=== PATIENT | female | born 1965 | race Caucasian/White ===

== ENCOUNTER 2018-09-07 06:24 | Emergency (ER) | payer MEDICARE, SELFPAY ==
[2018-09-07 06:27] VITALS: BP 134/78; PULSE 76; RESP 16; TEMP 36.4; O2SAT 98
--- NOTE | 2018-09-07 06:39 | DI.RAD_ITS ---
SYMPTOM/DIAGNOSIS: RT KNEE PAIN, SWELLING, ? ARTHRITIS OR GALLAGHER'S CYST RIGHT KNEE: No fracture or joint effusion is seen. There is prominent spurring at the patellofemoral joint as well as femoral tibial joints. There is joint space narrowing of the medial femoral tibial joint. IMPRESSION: Degenerative changes. No acute abnormality.
--- NOTE | 2018-09-07 06:39 | W.ED.GENAD ---
Discharge Plan Disposition Patient Disposition: HOME Condition: Stable Discharge Details Chief Complaint: Orthopedic Clinical Impression: Arthritis of knee, right, Knee pain Primary Care Provider: Marquita Cochran ED Provider: Vielka Cotton Home Meds and New Rx's Prescriptions: Continued bupropion HCl 100 MG tablet extended release 12 hr 150 mg PO HS RF: 0 lamotrigine [Lamictal] 100 MG tablet 150 mg PO BID RF: 0 TENS units [TENS 502] 1 EACH device 1 ea Miscellaneous as directed RF: 0 bupropion HCl (smoking deter) 150 MG tablet extended release 12 hr 300 mg PO am RF: 0 KNEE BRACE RF: 0 alprazolam [Xanax] 1 MG tablet 1 mg PO HS RF: 0 topiramate [Topamax] 50 MG tablet 50 mg PO BID RF: 0 B12 5,000-100 mcg Lozenge 2,500 alex Sublingual DAILY RF: 0 Discharge Instructions Instructions: Knee Pain (ED), Arthritis (ED) Additional Instructions: Alternate tylenol and motrin as needed and directed for pain. Rest, ice, and elevate your right knee as much as possible. Call your primary doctor today to schedule a follow up appointment for re-evaluation. Return immediately to the emergency department if you develop any worsening or new concerning symptoms of fever, increased pain, chest pain or shortness of breath. Discharge Data Discharge Date/Time-TO BE ENTERED AT DEPARTURE: 09/07/18 08:21 Discharge Physician: Vielka Cotton Medical Decision Making 53-year-old female who presents with right knee pain since yesterday. Pain worse with weightbearing and extension. Differential diagnosis includes strain, arthritis, Torres's cyst, effusion. No erythema, fever so not consistent with septic joint or gout. No history of recent travel, recent surgery and no calf tenderness or not consistent with DVT. No cauda equina symptoms and no radiating pain from lower back so not c/w disc herniation. Will obtain R knee xray and give a dose of motrin. 0800 -- xray notes arthritis. Patient instructed to rest, ice, elevate, alternate Tylenol and Motrin. She is instructed to follow-up with the primary care doctor for reevaluation and for referral for MRI if her symptoms do not improve or worsen. She is instructed to return here if she has any worsening or new concerning symptoms of fever, increased pain, chest pain or shortness of breath. Imaging Data Radiologic Study: Radiologist's impression: XR Left Knee EXAM DATE/TIME: 09/07/2018 6:39 AM CLINICAL HISTORY: 53 years old, female; Pain; Knee; Right TECHNIQUE: Imaging protocol: XR Left knee. Views: 4 or more views. COMPARISON: No relevant prior studies available. FINDINGS: Bones/joints: No fracture or dislocation demonstrated. Primary osteoarthritis, most pronounced medially, with joint space narrowing, sclerosis and osteophyte formation throughout. No joint effusion or loose intra-articular body. No lytic or blastic lesions. Soft tissues: Unremarkable. No foreign body. IMPRESSION: 1. No fracture or dislocation demonstrated. 2. Primary osteoarthritis, most pronounced medially, with joint space narrowing, sclerosis and osteophyte formation throughout. HPI General Mode of arrival: ambulatory. Date/Time Provider Initiated Documentation: 09/07/18 06:26. Limitations to Documentation: no limitations. Information obtained by: patient. HPI Narrative: Patient is a 53-year-old female who presents with right knee pain since yesterday. Patient states the knee is mainly in the anterior and lateral aspect. Increased pain with weightbearing and with extension. She denies any known injury. She states her pain is worse with ambulation/weightbearing which then extends down to her lower leg and up to her hip. She denies any known fever, injury, numbness, weakness. She has not taken anything for pain today. Related Data Home Medications Medication Instructions Recorded Confirmed Knee Brace 04/26/14 02/26/15 TENS units [TENS 502] ea 04/26/14 01/12/17 bupropion HCl 150 mg PO HS tab-cap 04/26/14 09/07/18 bupropion HCl (smoking deter) 300 mg PO am tab-cap 04/26/14 09/07/18 lamotrigine [Lamictal] 150 mg PO BID tab-cap 04/26/14 09/07/18 alprazolam [Xanax] 1 mg PO HS tab-cap 05/30/14 09/07/18 topiramate [Topamax] 50 mg PO BID 01/12/17 09/07/18 B12 2,500 alex SUBLINGUAL DAILY 09/07/18 09/07/18 Allergies Allergy/AdvReac Type Severity Reaction Status Date / Time diazepam AdvReac Severe VOMITING Unverified 09/07/18 06:32 prochlorperazine AdvReac Severe PANICK Unverified 09/07/18 06:32 [Prochlorperazine] ATTACKS zolpidem [Zolpidem] AdvReac Intermediate SLEEP Unverified 09/07/18 06:32 WALKING AND TALKING clonazepam [From Klonopin] AdvReac Mild NOT Unverified 09/07/18 06:32 EFFECTIVE Penicillins AdvReac Skin Rash Unverified 09/07/18 06:32 General Stated Complaint: Orthopedic NEELA: 4 Review of Systems Review of Systems All systems reviewed & are unremarkable except as noted in HPI and below Constitutional Reports as per HPI, Denies chills and Denies fever(s) Eyes Denies blurry vision ENT Denies dizziness, Denies sore throat and Denies throat swelling Cardiovascular Denies chest pain and Denies dyspnea Respiratory Denies cough and Denies dyspnea Gastrointestinal Denies abdominal pain, Denies diarrhea and Denies vomiting Genitourinary Denies hematuria and Denies dysuria Musculoskeletal Denies back pain, Denies numbness and Reports other (R knee pain) Integumentary/Breasts Denies lesions and Denies rash Neurologic Denies dizziness, Denies focal weakness and Denies numbness Allergic/Immunologic Denies throat swelling [facility] Medical History Depression Pernicious anemia Primary fibromyalgia syndrome chronic headaches post trauma stress disorder Surgical History section Cholecystectomy Endoscopic Carpal Tunnel release Gastric Bypass Family History Mother No problems noted. Father Alzheimer's disease Social History Smoking/Tobacco Use Status: Never Drug use: Never Do you feel safe at home: Yes Do you feel safe in your relationship?: Yes Exam Const General: cooperative, healthy appearing and no acute distress HENMT Head: normal to inspection Mouth: oral mucosae normal Eyes General: appearance normal, both eyes and all related structures Neck Neck: normal visual inspection Resp Effort & Inspection: normal respiratory effort and able to speak in complete sentences Cardio Rate: regular rate Skin General skin exam: no rashes or lesions noted Neuro General: alert, awake and oriented x3 Motor: muscle tone normal throughout Extrem General: no calf tenderness bilaterally Other: R anterior knee edema and pain with ROM, mostly extension. Negative anterior posterior drawer test. No pain or laxity with valgus or varus stress. No erythema, ecchymosis, rash. No obvious bony deformity. No palpable cystic lesion in the posterior knee. Psych Appearance: grossly normal Affect: normal affect Course Vital Signs Temperature 97.5 F L 09/07/18 06:27 Pulse 76 09/07/18 06:27 Respiratory Rate 16 09/07/18 06:27 Blood Pressure 134/78 09/07/18 06:27 Pulse Oximetry 98 09/07/18 06:27 Temperature 97.5 F L 09/07/18 06:27 Temperature Source Temporal Artery Scan 09/07/18 06:27 Pulse 76 09/07/18 06:27 Respiratory Rate 16 09/07/18 06:27 Respiratory Effort 09/07/18 06:27 Blood Pressure 134/78 09/07/18 06:27 Pulse Oximetry 98 09/07/18 06:27 Oxygen Delivery Method Room Air 09/07/18 06:27 Oxygen Flow Rate 0 09/07/18 06:27 Pain Level 10 09/07/18 06:31
[2018-09-07] MEDS: Ibuprofen 600 MG TAB PO (06:46)
--- NOTE | 2018-09-07 07:19 | DI.VRAD_ITS ---
EXAM: XR Left Knee EXAM DATE/TIME: 09/07/2018 6:39 AM CLINICAL HISTORY: 53 years old, female; Pain; Knee; Right TECHNIQUE: Imaging protocol: XR Left knee. Views: 4 or more views. COMPARISON: No relevant prior studies available. FINDINGS: Bones/joints: No fracture or dislocation demonstrated. Primary osteoarthritis, most pronounced medially, with joint space narrowing, sclerosis and osteophyte formation throughout. No joint effusion or loose intra-articular body. No lytic or blastic lesions. Soft tissues: Unremarkable. No foreign body. IMPRESSION: 1. No fracture or dislocation demonstrated. 2. Primary osteoarthritis, most pronounced medially, with joint space narrowing, sclerosis and osteophyte formation throughout. Dictated and Authenticated by: Bill Fritz MD. Ordering:JOSEFA Vora MD
[2018-09-07 07:32] VITALS: BP 116/75; PULSE 66; RESP 14; TEMP 36.4; O2SAT 98
== END 2018-09-07 08:21 | disposition home or self-care (01) ==
PROVIDERS: Emergency Provider Physician Assistant; PCP Nurse Practitioner Family
DX: M25.561 Pain in right knee (principal); M17.11 Unilateral primary osteoarthritis, right knee
CPT/HCPCS: 99283; 73564

== ENCOUNTER 2018-09-29 16:30 | Outpatient (REF) | payer MEDICARE, SELFPAY ==
--- NOTE | 2018-09-29 16:15 | PAPFT_PTH ---
PATIENT: Emily Tobin LOC: [facility] U#:[id number] AGE/SX: 53/F ROOM: RE09/29/[address]: Marquita Cochran : 1965 BED: DIS: 09/29/2018 SPEC #: [id number] RECD: 09/30/18 12:52 STATUS: DIANA RESanjay #: [id number] PORTIA: 09/29/18 16:[address]: Marquita Cochran DEPT: [facility] Cytology RECD BY: Jennifer Gutierrez Tissues: 1 - CX/ENDOCX FOR PAP SMEARS Procedures: PAP THIN PREP/UVM Screening HPV DNA PROBE Comments: [id number]
== END 2018-09-29 16:50 ==
LOC: NCHCN 16:30
PROVIDERS: PCP Nurse Practitioner Family; Visit Provider Nurse Practitioner Family
DX: Z12.4 Encounter for screening for malignant neoplasm of cervix (principal); Z11.51 Encounter for screening for human papillomavirus (HPV)
CPT/HCPCS: 88142; 87624

== ENCOUNTER 2018-09-30 12:38 | Outpatient (CLI) | payer MEDICARE, SELFPAY ==
[2018-10-01 10:48] LABS: Measles IgG Antibody Positive; Mumps Antibody IgG Negative (Negative); Rubella IgG Ab (UVM) Negative; Varicella IgG Antibody Positive
== END 2018-09-30 12:58 ==
PROVIDERS: PCP Nurse Practitioner Family; Visit Provider Nurse Practitioner Family
DX: Z11.59 Encounter for screening for other viral diseases (principal); Z01.84 Encounter for antibody response examination; R69 Illness, unspecified
CPT/HCPCS: 36415; 86787; 86735; 86762; 86765

== ENCOUNTER 2018-10-13 00:53 | Outpatient (CLI) | payer MEDICARE, SELFPAY ==
--- NOTE | 2018-10-13 13:05 | DI.MAMMO_ITS ---
SYMPTOMS/DIAGNOSIS: SCREENING, [facility], Z00.00 BILATERAL SCREENING MAMMOGRAMS: Mammograms were interpreted according to the usual protocol including computer analysis with CAD system, tomosynthesis and C view imaging. Comparison is made with exams from 2010 and 2018. The breasts are composed of heterogeneously dense fibroglandular tissue, breast density category C. Previously noted cysts in the left breast are much smaller on today's exam. No suspicious masses or suspicious microcalcifications are seen. . IMPRESSION: Category 2, negative mammogram with benign findings. Yearly screening mammography is recommended. SA ASSESSMENT OF FINDINGS: Negative with benign findings. Category 2. Patient will receive a letter notifying them of these results. Bi-RADS category C. The breasts are heterogeneously dense, which may obscure small masses.
== END 2018-10-13 01:13 ==
PROVIDERS: PCP Nurse Practitioner Family; Visit Provider Nurse Practitioner Family
DX: Z12.31 Encounter for screening mammogram for malignant neoplasm of breast (principal); N60.12 Diffuse cystic mastopathy of left breast
CPT/HCPCS: 77063; 77067

== ENCOUNTER 2018-11-22 20:51 | Emergency (ER) | payer MEDICARE, SELFPAY ==
--- NOTE | 2018-11-22 20:56 | ED.GENADUL_ITS ---
Discharge Plan Disposition Patient Disposition: HOME Condition: Good Discharge Details Chief Complaint: RespSymp Clinical Impression: Bronchitis Primary Care Provider: Marquita Cochran ED Provider: Sam Gomez Home Meds and New Rx's Prescriptions: No Action bupropion HCl 100 MG tablet extended release 12 hr 150 mg PO HS RF: 0 lamotrigine [Lamictal] 100 MG tablet 150 mg PO BID RF: 0 (DME) TENS units [TENS 502] 1 EACH device 1 ea Miscellaneous as directed RF: 0 bupropion HCl (smoking deter) 150 MG tablet extended release 12 hr 300 mg PO am RF: 0 KNEE BRACE RF: 0 alprazolam [Xanax] 1 MG tablet 1 mg PO HS RF: 0 topiramate [Topamax] 50 MG tablet 50 mg PO BID RF: 0 B12 5,000-100 mcg Lozenge 2,500 alex Sublingual DAILY RF: 0 Discharge Instructions Instructions: Acute Bronchitis (ED) Additional Instructions: At this time your EKG shows no evidence of a heart attack. Your chest x-ray is negative for any evidence of pneumonia at this time. Your signs and symptoms are notably concerning and consistent with bronchitis. Please take the inhaler as directed. Please take 2 puffs every 4 hours as needed. Please continue to take your prednisone. If you notice any worsening of your symptoms, or any new symptoms such as vomiting, diarrhea, fever, chills, shortness of breath, chest pain, numbness, weakness, or fainting , please return immediately to the emergency department for reevaluation. Please follow up with your primary care provider as soon as possible for reassessment and reevaluation. As always, it was a pleasure participating in your medical care today. Referrals: Marquita Cochran [Primary Care Provider] - Discharge Data Discharge Date/Time-TO BE ENTERED AT DEPARTURE: 11/22/18 23:00 Medical Decision Making This is a very pleasant 53-year-old female who presents with 5 days of cough, congestion, and symptoms of a mild upper respiratory infection. She was started on prednisone 3 days ago by her PCP. Unfortunately this is not improved her symptoms. She does have mild fullness/congestion feeling in her chest but denies any tearing sensation, crushing chest pain, exertional pain, arm neck or shoulder pain. She has no family history of cardiac disease. She has no cardiac risk factors aside for her mild obesity. Physical exam is notably unremarkable, vital signs stable and reassuring. Signs and symptoms appear clinically consistent with mild bronchitis. We will get chest x-ray for further evaluation. Due to her age of 53 and atypical symptomatology we will get a screening EKG. Of note she also does have a small amount of blood in her left canal, this is iatrogenic and secondary to her picking with a Q-tip. There is no evidence of otitis media, rupture, or otitis externa. 10:42 PM Chest x-ray is negative for any significant pneumonia or other abnormality. Vital signs remained stable, EKG is unremarkable. Signs and symptoms at this time continue to be her clinic clinically consistent with mild bronchitis. Symptoms notably improved with albuterol breathing treatment. Signs and symptoms at this time are clinically inconsistent with ACS, PE, dissection, or severe pneumonia. Will recommend continued steroids, albuterol at home which will be dispensed here, close follow-up with PCP. I have extensively reviewed the treatment plan and discharge instructions with the patient. I have addressed all patient concerns at this time. The patient was made aware of what symptoms to monitor for that would warrant a return to the emergency department. Discussed the plan with the patient, they demonstrate verbal understanding and agreement with our assessment and plan at this time. EKG 21: 19 Rate 67, intervals normal, sinus rhythm, no significant ST elevations or depressions, no T wave inversions, no evidence of STEMI. No significant Q waves. FINDINGS: Lungs: Stable mild hyperinflation without airspace consolidation. Pleural space: No pleural effusion. No pneumothorax. Heart/Mediastinum: No cardiomegaly. Upper abdomen: Right upper quadrant clips, probable cholecystectomy. Surgical clips project over the midline upper abdomen. Bones/joints: No acute fracture. IMPRESSION: Stable mild hyperinflation without airspace consolidation. Thank you for allowing us to participate in the care of your patient. Dictated and Authenticated by: Zoe Dyer MD [facility] General Date/Time Provider Initiated Documentation: 11/22/18 20:[address] [facility] Narrative: This is a 53-year-old female with a past medical history of fibr omyalgia, anxiety, depression, pernicious anemia, PTSD, who presents today for evaluation of cough for the last 5 days. Patient states that she has had a slightly productive cough for the last 5 days with associated congestion. She does admit to some mild congestion-like feeling in her chest. She denies any hemoptysis. She denies any severe chest pain, crushing chest sensation, bandlike sensation, or exertional symptoms. 3 days ago she was started on prednisone by her PCP, but has had no improvement with this. She denies any fever or chills. Denies PE risk factors such as recent long car rides, immobilization, recent surgery, prior history of DVT or PE, family history of PE or DVT, morbid obesity, exogenous estrogen and smoking, hemoptysis, history of cancer. She denies any family history of cardiac disease blood clots or PEs. She denies any history of hypertension, hyperlipidemia, or regular tobacco abuse. She has no other complaints at this time. No other modifying factors. Related Data Home Medications Medication Instructions Recorded Confirmed Knee Brace 04/26/14 02/26/15 TENS units [TENS 502] ea 04/26/14 01/12/17 bupropion HCl 150 mg PO HS tab-cap 04/26/14 09/07/18 bupropion HCl (smoking deter) 300 mg PO am tab-cap 04/26/14 09/07/18 lamotrigine [Lamictal] 150 mg PO BID tab-cap 04/26/14 09/07/18 alprazolam [Xanax] 1 mg PO HS tab-cap 05/30/14 09/07/18 topiramate [Topamax] 50 mg PO BID 01/12/17 09/07/18 B12 2,500 alex SUBLINGUAL DAILY 09/07/18 09/07/18 Allergies Allergy/AdvReac Type Severity Reaction Status Date / Time diazepam AdvReac Severe VOMITING Unverified 11/22/18 21:07 prochlorperazine AdvReac Severe PANICK Unverified 11/22/18 21:07 [Prochlorperazine] ATTACKS zolpidem [Zolpidem] AdvReac Intermediate SLEEP Unverified 11/22/18 21:07 WALKING AND TALKING clonazepam [From Klonopin] AdvReac Mild NOT Unverified 11/22/18 21:07 EFFECTIVE Penicillins AdvReac Skin Rash Unverified 11/22/18 21:07 General NEELA: 4 Review of Systems Review of Systems ROS Unobtainable: All systems reviewed & are unremarkable except as noted in HPI and below PFSH Social History Smoking/Tobacco Use Status: Never Drug use: Never Do you feel safe at home: Yes Do you feel safe in your relationship?: Yes Exam Narrative Exam Narrative: 1.Const: Well-nourished, Well-developed, appearing stated age 2.Eyes: PERRL, no conjunctival injection, and symmetrical lids. 3.ENT: Atraumatic external nose and ears. Moist MM. Neck: Symmetric, trachea midline, No thyromegaly. Right tympanic membrane normal, normal external ear canal. Left tympanic membrane is normal no evidence of effusion or rupture. There is a small amount of blood noted in the left ear canal, however this is secondary to iatrogenic Q-tip use, and not secondary to tympanic membrane rupture. 4.CVS: +S1/S2, No murmurs or gallops. Peripheral pulses 2+ and equal in all extremities. Brisk capillary refill in all extremities. Radial pulses equal bilaterally. 5.RESP: Unlabored respiratory effort. Clear to auscultation bilaterally. No wheezes rales or rhonchi 6.GI: Soft, Nontender/Nondistended, No hepatosplenomegaly. No guarding or rebound. 7.MSK: Normocephalic/Atraumatic, Extremities w/o deformity or ttp No cyanosis or clubbing, Normal movement of all extremities, no calf tenderness. Negative Homans sign. 8.Skin: Warm, Dry. No rashes or lesions. 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 Sensation grossly intact, no focal neurologic deficits. 10.Psych: (AAO) x3. Appropriate mood and affect
[2018-11-22 20:59] VITALS: BP 142/86; PULSE 75; RESP 20; TEMP 36.7; O2SAT 97
[2018-11-22 21:37] VITALS: RESP 1
[2018-11-22] MEDS: Albuterol/Ipratropium 3 ML UPD VIAL UPD (21:37)
--- NOTE | 2018-11-22 21:40 | DI.RAD_ITS ---
SYMPTOM/DIAGNOSIS: COUGH PA AND LATERAL CHEST: The lungs are mildly hyperexpanded. There is no infiltrate or pleural effusion. The heart is not enlarged. The hilar structures, mediastinum and tracheal air column are well maintained. SUMMARY: Findings consistent with mild pulmonary hyperinflation, unchanged. No evidence of acute cardiopulmonary disease.
--- NOTE | 2018-11-22 21:43 | DI.VRAD_ITS ---
EXAM: XR Chest, 2 Views EXAM DATE/TIME: 11/22/2018 21:34 CLINICAL HISTORY: 53 years old, female; Patient HX: Cough for 5 days TECHNIQUE: Imaging protocol: XR of the chest Views: 2 views. COMPARISON: CR CHEST 2 VIEWS PA,LAT 02/24/2017 10:33 FINDINGS: Lungs: Stable mild hyperinflation without airspace consolidation. Pleural space: No pleural effusion. No pneumothorax. Heart/Mediastinum: No cardiomegaly. Upper abdomen: Right upper quadrant clips, probable cholecystectomy. Surgical clips project over the midline upper abdomen. Bones/joints: No acute fracture. IMPRESSION: Stable mild hyperinflation without airspace consolidation. Dictated and Authenticated by: Zoe Dyer MD. Ordering:SHIMON Vargas MD
[2018-11-22] MEDS: Albuterol HFA 8 GM 60 PUFF INH IH (23:03)
== END 2018-11-22 23:00 | disposition home or self-care (01) ==
PROVIDERS: Emergency Provider Student in an Organized Health Care Education/Training Program; PCP Nurse Practitioner Family
DX: J20.9 Acute bronchitis, unspecified (principal)
CPT/HCPCS: 93005; 94640; 99284; 71046; 93010; J7620

== ENCOUNTER 2019-03-01 08:51 | Outpatient (REF) | payer MEDICARE, SELFPAY ==
[2019-03-01 21:59] LABS: Calculated LDL 83 mg/dL; Cholesterol 155 mg/dL (<200); Glucose 96 mg/dL (74-106); HDL Cholesterol 55 mg/dL (40-60); Triglyceride 85 mg/dL (<150)
== END 2019-03-01 09:11 ==
LOC: NCHCN 08:51
PROVIDERS: PCP Nurse Practitioner Family; Visit Provider Nurse Practitioner Family
DX: Z13.1 Encounter for screening for diabetes mellitus (principal); Z13.6 Encounter for screening for cardiovascular disorders
CPT/HCPCS: 80061; 82947

== ENCOUNTER 2019-06-30 13:13 | Outpatient (REF) | payer MEDICARE, SELFPAY ==
[2019-06-30 20:00] LABS: ALT 48 U/L (14-59); AST 28 U/L (15-37); Albumin 3.6 g/dL (3.4-5.0); Alkaline Phosphatase 131 U/L (46-116); Anion Gap 10.5 mmol/L (3-11); BUN 15 mg/dL (7-18); Bilirubin, Total 0.3 mg/dL (0.2-1.0); CO2 24.5 mmol/L (21.0-32.0); CREATININE 1.08 mg/dL (0.55-1.02); Calcium 8.5 mg/dL (8.5-10.1); Chloride 107 mmol/L (98-107); Estimated GFR 53.28 (mL/min/1.73m2); Glucose 91 mg/dL (74-106); Potassium 4.1 mmol/L (3.5-5.1); Sodium 142 mmol/L (136-145); TSH 2.11 uIU/mL (0.36-3.74); Total Protein 6.1 g/dL (6.4-8.2)
[2019-06-30 20:08] LABS: Vitamin B12 > 2000 pg/mL (193-986)
[2019-06-30 20:32] LABS: HCT 34.1 % (36.0-46.0); Mean Corp. HGB Concentration 29.3 g/dL (32.0-36.0); Mean Corpuscular Hemoglobin 21.7 pg (27.0-33.0); Mean Corpuscular Volume 74.1 fL (80-95); Mean Platelet Volume 10.8 fL (8.0-11.0); Platelet Count 414 x1000/uL (130-400); RBC Distribution Width 18.3 % (11.7-14.6)
[2019-07-01 04:53] LABS: Vitamin D 25 Total < 5 ng/ml (30-100)
[2019-07-01 09:17] LABS: Iron 118 ug/dL (50-170)
[2019-07-02 10:09] LABS: Hepatitis C Ab w Rflx HCV PCR Negative (Negative)
== END 2019-06-30 13:33 ==
LOC: NCHCN 13:13
PROVIDERS: PCP Nurse Practitioner Family; Visit Provider Nurse Practitioner Family
DX: R53.83 Other fatigue (principal); E55.9 Vitamin D deficiency, unspecified; M79.7 Fibromyalgia; Z11.59 Encounter for screening for other viral diseases; R79.89 Other specified abnormal findings of blood chemistry
CPT/HCPCS: 80053; 82306; 85027; 86803; 82607; 83540; 84443

== ENCOUNTER 2019-07-11 17:27 | Emergency (ER) | payer MEDICARE, SELFPAY ==
[2019-07-11 17:32] VITALS: BP 129/79; PULSE 69; RESP 16; TEMP 36.8; O2SAT 99
--- NOTE | 2019-07-11 17:37 | ED.GENADUL_ITS ---
Discharge Plan Disposition Patient Disposition: HOME Condition: Improving Discharge Details Chief Complaint: Abd Prob Clinical Impression: Urinary tract infection Primary Care Provider: Marquita Cochran ED Provider: Edy James Home Meds and New Rx's Prescriptions: New cephalexin 500 mg capsule 500 mg PO TID 7 Days Qty: 21 RF: 0 No Action bupropion HCl 100 MG tablet extended release 12 hr 150 mg PO HS RF: 0 lamotrigine [Lamictal] 100 MG tablet 150 mg PO BID RF: 0 (DME) TENS units [TENS 502] 1 EACH device 1 ea Miscellaneous as directed RF: 0 bupropion HCl (smoking deter) 150 MG tablet extended release 12 hr 300 mg PO am RF: 0 alprazolam [Xanax] 1 MG tablet 1 mg PO HS RF: 0 topiramate [Topamax] 50 MG tablet 50 mg PO BID RF: 0 Discharge Instructions Instructions: Urinary Tract Infection in Women (ED) Additional Instructions: Home to rest today. Small, frequent sips of fluids to maintain hydration. You may continue Tylenol and/or ibuprofen as needed for discomfort and to continue your regular medications. Begin antibiotics as prescribed tomorrow morning. Return to the emergency department for any acute concerns. Discharge Data Discharge Date/Time-TO BE ENTERED AT DEPARTURE: 07/11/19 19:20 Medical Decision Making This is a 54-year-old female who is status post cholecystectomy distantly, who developed the abrupt onset of colicky right lower quadrant and right flank pain this evening. She arrives to the emergency department with normal vital signs and exam reveals right flank and right lower quadrant tenderness on exam. Differential gnosis includes ileus, constipation, renal colic or pyelonephritis. Patient had IV access established, given fluid bolus, antiemetic and parenteral analgesia, referred for laboratory testing and CT images. Labs reveal a white count of 6, hematocrit 35.8, platelets 411, chemistries reassuring. UA with numerous white blood cells, few bacteria, moderate leuk esterase. CT without significant acute findings, see formal report Consistent with developing pyelonephritis. Patient given parenteral antibiotic and I will place her on a course of oral antibiotics. Lab Data Lab results reviewed: Yes I reviewed the patient's lab results. Labs: Laboratory Results - last 24 hr 07/11/19 07/11/19 07/11/19 17:34 17:47 17:50 WBC RBC Hgb Hct MCV MCH MCHC RDW Plt Count MPV Immature Gran % Neutrophils % Lymphocytes % Monocytes % Eosinophils % Basophils % Absolute Neutrophils Absolute Lymphocytes Absolute Monocytes Absolute Eosinophils Absolute Basophils Differential Comment Polychromasia Poikilocytosis Anisocytosis Microcytosis Sodium 140 Potassium 3.5 Chloride 106 Carbon Dioxide 26.3 Anion Gap 7.7 BUN 16 Creatinine 0.98 Estimated GFR/1.73 m2 59.60 Glucose 96 Calcium 9.0 Total Bilirubin 0.3 AST 30 ALT 43 Alkaline Phosphatase 131 H Total Protein 6.9 Albumin 3.9 Urine Color Yellow Cancelled Urine Clarity Cloudy Cancelled Urine pH 6.0 Cancelled Ur Specific [place] 1.020 Cancelled Urine Protein Negative Cancelled Urine Ketones Negative Cancelled Urine Blood Negative Cancelled Urine Nitrite Negative Cancelled Urine Bilirubin Negative Cancelled Urine Urobilinogen 0.2 Cancelled Ur Leukocyte Esterase Moderate H Cancelled Urine RBC Negative Urine WBC 20-50 H Ur Epithelial Cells Many Urine Crystals Negative Urine Bacteria Few Urine Casts Negative Urine Mucus Trace Urine Other Ur Culture Indicated? No/sq. contamination Urine Glucose Negative Cancelled 07/11/19 17:50 WBC 6.18 RBC 4.87 Hgb 10.9 L Hct 35.8 L MCV 73.5 L MCH 22.4 L MCHC 30.4 L RDW 19.1 H Plt Count 411 H MPV 10.6 Immature Gran % 0.2 Neutrophils % 47.8 Lymphocytes % 36.6 Monocytes % 11.3 Eosinophils % 3.1 Basophils % 1.0 Absolute Neutrophils 2.96 Absolute Lymphocytes 2.26 Absolute Monocytes 0.70 Absolute Eosinophils 0.19 Absolute Basophils 0.06 Differential Comment Diff reviewed Polychromasia Present Poikilocytosis 1+ Anisocytosis 2+ Microcytosis 1+ Sodium Potassium Chloride Carbon Dioxide Anion Gap BUN Creatinine Estimated GFR/1.73 m2 Glucose Calcium Total Bilirubin AST ALT Alkaline Phosphatase Total Protein Albumin Urine Color Urine Clarity Urine pH Ur Specific [place] Urine Protein Urine Ketones Urine Blood Urine Nitrite Urine Bilirubin Urine Urobilinogen Ur Leukocyte Esterase Urine RBC Urine WBC Ur Epithelial Cells Urine Crystals Urine Bacteria Urine Casts Urine Mucus Urine Other Ur Culture Indicated? Urine Glucose HPI General Mode of arrival: ambulatory . Date/Time Provider Initiated Documentation: 07/11/19 17:30 . Limitations to Documentation: no limitations . Information obtained by: patient . History of Present Illness 54 year old F presents to the emergency department with the chief complaint of Abrupt onset right lower quadrant pain, described as moderate, Quality is described as sharp, and is localized to the abdomen and right. Patient reports radiation to back. Patient started experiencing this hour(s) and it has been intermittent. No relieving factors improve symptom(s), No exacerbating factors reported . Patient notes nausea/vomiting (Nausea without emesis); denies fever/chills and syncope. Patient did receive the following treatments prior to arrival, none Related Data Home Medications Medication Instructions Recorded Confirmed TENS units [TENS 502] ea 04/26/14 01/12/17 bupropion HCl 150 mg PO HS tab-cap 04/26/14 07/11/19 bupropion HCl (smoking deter) 300 mg PO am tab-cap 04/26/14 07/11/19 lamotrigine [Lamictal] 150 mg PO BID tab-cap 04/26/14 07/11/19 alprazolam [Xanax] 1 mg PO HS tab-cap 05/30/14 07/11/19 topiramate [Topamax] 50 mg PO BID 01/12/17 07/11/19 cephalexin 500 mg PO TID 7 Days #21 cap 07/11/19 Previous Rx's Medication Instructions Recorded cephalexin 500 mg PO TID 7 Days #21 cap 07/11/19 Allergies Allergy/AdvReac Type Severity Reaction Status Date / Time diazepam AdvReac Severe VOMITING Unverified 07/11/19 17:38 prochlorperazine AdvReac Severe PANICK Unverified 07/11/19 17:38 [Prochlorperazine] ATTACKS zolpidem [Zolpidem] AdvReac Intermediate SLEEP Unverified 07/11/19 17:38 WALKING AND TALKING clonazepam [From Klonopin] AdvReac Mild NOT Unverified 07/11/19 17:38 EFFECTIVE Penicillins AdvReac Skin Rash Unverified 07/11/19 17:38 General Stated Complaint: Abd Prob NEELA: 3 Review of Systems Narrative: 6 systems reviewed and otherwise negative [facility] Medical History chronic headaches Depression Pernicious anemia post trauma stress disorder Primary fibromyalgia syndrome Surgical History section twice Cholecystectomy Endoscopic Carpal Tunnel release bilateral Gastric Bypass Social History Smoking/Tobacco Use Status: Never Alcohol Intake: current Alcohol Intake frequency: holidays/special occasions only Drug use: Never Do you feel safe at home: Yes Do you feel safe in your relationship?: Yes Exam Narrative Exam Narrative: GEN: awake, alert, oriented 3. Pleasant, well groomed, interactive. HEAD: Normocephalic, atraumatic ENT: Mucous membranes moist, oropharynx unremarkable, External ear exam unremarkable EYES: PERRL, EOMI NECK: Full ROM, no YOSVANY, no menigismus CHEST/RESP: Nontender, clear to auscultation bilateral, no wheeze/rhonchi/rales CARDIOVASCULAR: RRR, no murmur, rub hilton. 2+ Rad pulse bilateral ABDOMEN: Soft, right flank and right lower quadrant tender to palpation, no mass. +Bowel sounds EXT: Full ROM, no edema, no rash Neuro: Grossly normal neurologic exam, conversant, interactive. Psych: Speech fluent, thoughts congruent, affect normal Course Vital Signs Vital signs: Vital Signs Temperature 36.8 C 07/11/19 17:32 Pulse 69 07/11/19 17:32 Respiratory Rate 16 07/11/19 17:32 Blood Pressure 129/79 07/11/19 17:32 Pulse Oximetry 99 07/11/19 17:32 Temperature 36.8 C 07/11/19 17:32 Temperature Source Tympanic 07/11/19 17:32 Pulse 69 07/11/19 17:32 Respiratory Rate 16 07/11/19 17:32 Blood Pressure 129/79 07/11/19 17:32 Blood Pressure Position Sitting 07/11/19 17:32 Pulse Oximetry 99 07/11/19 17:32 Oxygen Delivery Method Room Air 07/11/19 17:32 Oxygen Flow Rate 0 07/11/19 17:32 Pain Level 8 07/11/19 17:32
[2019-07-11 17:49] LABS: Bilirubin Negative (Negative); Blood Negative (Negative); Clarity Cloudy (Clear); Glucose Negative (Negative); Ketones Negative (Negative); Leukocyte Esterase Moderate (Negative); Nitrite Negative (Negative); Urobilinogen 0.2 EU/dL (Up TO 0.2)
[2019-07-11] MEDS: Ketorolac 15 MG/ML VIAL IVP (17:57)
[2019-07-11] MEDS: Normal Saline 1,000 ML 1000 ML IV (17:58)
[2019-07-11] MEDS: Ondansetron 4 MG/2 ML VIAL IVP (17:58)
[2019-07-11 18:14] LABS: ALT 43 U/L (14-59); AST 30 U/L (15-37); Albumin 3.9 g/dL (3.4-5.0); Alkaline Phosphatase 131 U/L (46-116); Anion Gap 7.7 mmol/L (3-11); BUN 16 mg/dL (7-18); Bilirubin, Total 0.3 mg/dL (0.2-1.0); CO2 26.3 mmol/L (21.0-32.0); CREATININE 0.98 mg/dL (0.55-1.02); Chloride 106 mmol/L (98-107); Glucose 96 mg/dL (74-106); Potassium 3.5 mmol/L (3.5-5.1); Sodium 140 mmol/L (136-145); Total Protein 6.9 g/dL (6.4-8.2)
--- NOTE | 2019-07-11 18:30 | DI.CT_ITS ---
EXAM: CT RENAL COLIC WO CLINICAL HISTORY: R lower and R flank pain TECHNIQUE: 2D digital imaging was performed. COMPARISON: No exams were available for comparison FINDINGS: Lung bases are clear. Patient is status post cholecystectomy. The common bile duct is enlarged to 17 millimeters. No obstructing stone or mass is visible. Intrahepatic biliary dilatation is seen as well. There is a small low-density lesion peripherally in the right lobe, too small to characterize . Suture material is seen at the stomach related to gastric bypass surgery. There is no evidence of bowel obstruction. The appendix appears normal. The spleen, pancreas and adrenals are unremarkable . A left renal cyst is noted. The aorta is normal in diameter. An IUD is seen within the uterus. The bladder is unremarkable. Degenerative changes are present in the spine. IMPRESSION: Intra and extrahepatic biliary dilatation. No obstructing stone or mass is visible. RADIATION DOSE DELIVERED: Total DLP
[2019-07-11 18:31] LABS: Bacteria Few HPF (Negative); C & S Indicated? No/Sq. Contamination; Casts Negative LPF (Negative); Crystals Negative HPF (Negative); Epithelial Cells Many HPF (Negative); Mucus Trace (Negative); RBC Negative HPF (0-2); WBC 20-50 HPF (0-5)
[2019-07-11 18:40] LABS: Abs Immature Grans 0.01 k/cumm (0.0-0.09); Absolute Basophil Count 0.06 k/cumm (0.0-0.2); Absolute Eosinophil Count 0.19 k/cumm (0.0-0.7); Absolute Lymphocyte Count 2.26 k/cumm (1.2-3.4); Absolute Neutrophil Count 2.96 k/cumm (1.2-6.7); Eosinophils % 3.1; HCT 35.8 % (36.0-46.0); HGB 10.9 g/dL (12.0-15.5); Immature Grans % 0.2 %; Lymphocytes % 36.6; Mean Corp. HGB Concentration 30.4 g/dL (32.0-36.0); Mean Corpuscular Hemoglobin 22.4 pg (27.0-33.0); Mean Corpuscular Volume 73.5 fL (80-95); Mean Platelet Volume 10.6 fL (8.0-11.0); Monocytes % 11.3; Neutrophils % 47.8; Platelet Count 411 x1000/uL (130-400); RBC 4.87 m/cumm (4.00-5.20); RBC Distribution Width 19.1 % (11.7-14.6); White Blood Cell Count 6.18 k/cumm (4.4-10.8)
[2019-07-11] MEDS: HYDROmorphone 2 MG/ML VIAL 0.5 MG IVP (18:52)
[2019-07-11 19:01] LABS: Anisocytosis 2+; Microcytosis 1+; Polychromasia Present
[2019-07-11 19:02] LABS: Diff Comment Diff Reviewed; Poikilocytes 1+
--- NOTE | 2019-07-11 19:02 | DI.VRAD_ITS ---
PROCEDURE INFORMATION: Exam: CT Abdomen And Pelvis Without Contrast Exam date and time: 07/11/2019 5:44 PM Age: 54 years old Clinical indication: Right lower abdominal pain, Rt flank pain; Prior surgery; 6+ months; S/P gastric bypass and cholecystectomy. TECHNIQUE: Imaging protocol: Computed tomography of the abdomen and pelvis without contrast. Radiation optimization: All CT scans at this facility use at least one of these dose optimization techniques: automated exposure control; mA and/or kV adjustment per patient size (includes targeted exams where dose is matched to clinical indication); or iterative reconstruction. COMPARISON: No relevant prior studies available. FINDINGS: Liver: No discrete liver lesion. Intrahepatic biliary dilatation. Gallbladder and bile ducts: Status post cholecystectomy. Dilated common bile duct measuring 13 mm in caliber. Dilated common hepatic duct measuring 16-17 mm in caliber. Intrahepatic biliary dilatation. Correlation with laboratory values may be useful. Pancreas: Normal. No ductal dilation. Spleen: Normal. No splenomegaly. Adrenals: Normal. No mass. Kidneys and ureters: No hydronephrosis. No calcified renal or ureteral stones. 11 mm cyst posterior lateral left renal cortex. Stomach and bowel: Prior gastric bypass surgery. Appendix: Normal appendix. Intraperitoneal space: Unremarkable. No free air. No significant fluid collection. Vasculature: Unremarkable. No abdominal aortic aneurysm. Lymph nodes: Unremarkable. No enlarged lymph nodes. Bladder: Unremarkable as visualized. Reproductive: IUD within the uterus. Bones/joints: Spinal degenerative changes. Mild dextroscoliosis. Soft tissues: Small fat-containing umbilical hernia. IMPRESSION: 1. Status post cholecystectomy. Dilated common bile duct measuring 13 mm in caliber. Dilated common hepatic duct measuring 16-17 mm in caliber. Intrahepatic biliary dilatation. Correlation with laboratory values may be useful. 2. No hydronephrosis. No calcified renal or ureteral stones. 3. Otherwise, no acute intra-abdominal or pelvic process. Dictated and Authenticated by: Chilo Guillaume MD. Ordering:LUCINA Snow MD
[2019-07-11] MEDS: cefTRIAXone 1 GM/50 ML BAG IVPB (19:16)
[2019-07-11 19:31] VITALS: BP 138/82; PULSE 78; RESP 14; TEMP 36.4; O2SAT 100
== END 2019-07-11 19:20 | disposition home or self-care (01) ==
PROVIDERS: Emergency Provider Emergency Medicine; PCP Nurse Practitioner Family
DX: N10 Acute pyelonephritis (principal); R11.0 Nausea
CPT/HCPCS: 36415; 80053; 96361; 96365; 96375; 99284; 74176; 81003; 81015; 85025; J0696; J1885; J2405

== ENCOUNTER 2019-07-14 12:43 | Outpatient (REF) | payer MEDICARE, SELFPAY ==
[2019-07-16 14:16] LABS: Chlamydia Result Negative (Negative); GC Result Negative (Negative)
== END 2019-07-14 13:03 ==
LOC: NCHCN 12:43
PROVIDERS: PCP Nurse Practitioner Family; Visit Provider Nurse Practitioner Family
DX: R10.9 Unspecified abdominal pain (principal); M54.5 Low back pain; Z11.3 Encounter for screening for infections with a predominantly sexual mode of transmission
CPT/HCPCS: 87491; 87591; 87086; 87480; 87510; 87660

== ENCOUNTER → 2019-07-16 01:48 | Outpatient (CLI) | payer MEDICARE, SELFPAY ==
--- NOTE | 2019-07-16 | DI.MRI_ITS ---
EXAM: MR ABDOMEN WO CLINICAL HISTORY: RT CVA AND RUQ ABD PAIN, R10.9, ? CBD OBSTRUCTION,F/U ABNL CT TECHNIQUE: Multiplanar multisequence MRA of the Abdomen was performed. MRCP sequences were also pe rformed. COMPARISON: MR MRI - LUMBAR SPINE WO CONTRAST from 06/08/[address] RENAL COLIC WO from 07/11/2019 FINDINGS: The exam is limited by respiratory motion. The liver is normal in size. No suspicious masses are seen. There are few small cystic areas which could represent simple hepatic cysts versus choledochal cysts. Surgical clips are seen in the gallbladder fossa related to prior cholecystectomy. There is dilatati on of the common bile duct measuring 15 millimeters. This appears unchanged when compared with a sco ut view from an MRI of the lumbar spine from 2009. The common bile duct tapers distally in the pancr eatic head. No mass or stone is seen. There has been previous gastric surgery. The spleen, adrenals and pancreas are unremarkable. There are few small bilateral renal cysts. A degenerative changes are seen greatest at L2-3 the left. IMPRESSION: Dilatation of the common bile duct and intrahepatic ducts appears to grossly stable when compared wit h 2010 spine MRI. No obstructing stone or mass is seen.. DATA REPOSITORY:
== END ==
PROVIDERS: PCP Nurse Practitioner Family; Visit Provider Nurse Practitioner Family
DX: R10.11 Right upper quadrant pain (principal); Z90.49 Acquired absence of other specified parts of digestive tract; N28.1 Cyst of kidney, acquired; K83.8 Other specified diseases of biliary tract
CPT/HCPCS: 74181

== ENCOUNTER → 2019-08-27 03:02 | Outpatient (CLI) | payer MEDICARE, SELFPAY ==
--- NOTE | 2019-08-27 | DI.MRI_ITS ---
EXAM: MR LUMBAR SPINE WO CLINICAL HISTORY: LOW BACK PAIN, M54.5. TECHNIQUE: Multiplanar multisequence MRI of the Lumbar spine was performed. COMPARISON: MR MRI - LUMBAR SPINE WO CONTRAST from 06/08/2009 CR,XR XR CHEST 2V PA LATERAL from 11/22/[address] RENAL COLIC WO from 07/11/2019 FINDINGS: Bones: The last intervertebral disc space is designated the L5/S1 level for the numbering purpose of this examination. There are Schmorl's nodes at multiple levels. There is mild anterior wedging of t he L2 and L3 vertebral bodies, unchanged from previous CT. Degenerative signal changes are noted in the endplates at the at this level, eccentric toward the left. Soft tissues: The visualized SI joints and sacrum are well maintained. The paraspinal soft tissues ar e unremarkable. The conus medullaris appears normal. The T11-12 and T12-L1 levels are unremarkable. L1-2: There is mild loss of disc height and mild broad-based disc osteophytes. L2-3: There is moderate to severe loss disc height, eccentric toward the left. There are mild facet degenerative changes and ligamentous hypertrophy. There is moderate to severe left neural foraminal narrowing and mild central canal stenosis. L3-4: There is are mild broad-based disc osteophytes. There is ligamentous hypertrophy and mild face t degenerative changes. There is no significant central canal stenosis. There is moderate left neur al foraminal narrowing. L4-5: There is broad-based disc bulging and small endplate osteophytes. Asymmetric narrowing of the disc toward the right side. There are facet degenerative changes and ligamentous hypertrophy which c ombine to cause moderate degree of central canal stenosis. There is severe right and moderate left n eural foraminal narrowing. L5-S1: There is marked loss of disc height and mild disc osteophytes. There are facet degenerative c hanges and ligamentous hypertrophy combining to produce mild to moderate central canal stenosis as we ll as moderate bilateral neural foraminal narrowing. IMPRESSION: Multilevel degenerative disc changes and facet degenerative changes causing bilateral neural foramina l narrowing as well as central canal stenosis. The findings are most severe at L4-5. No evidence of a focal disc herniation. DATA REPOSITORY:
== END ==
PROVIDERS: PCP Nurse Practitioner Family; Visit Provider Nurse Practitioner Family
DX: M54.5 Low back pain (principal); M51.37 Other intervertebral disc degeneration, lumbosacral region; M47.817 Spondylosis without myelopathy or radiculopathy, lumbosacral region; M25.78 Osteophyte, vertebrae
CPT/HCPCS: 72148

== ENCOUNTER → 2019-09-22 12:47 | Outpatient (BNVA) | payer MEDICARE, SELFPAY | PROVIDERS: PCP Nurse Practitioner Family; Referring Provider Nurse Practitioner Family; Visit Provider Surgery | DX: D51.0 Vitamin B12 deficiency anemia due to intrinsic factor deficiency (principal); D50.9 Iron deficiency anemia, unspecified; Z98.84 Bariatric surgery status; R19.5 Other fecal abnormalities | CPT/HCPCS: 99202; 99214 ==

== ENCOUNTER 2019-09-22 14:12 | Outpatient (REF) | payer MEDICARE, SELFPAY ==
[2019-09-22 15:21] LABS: Iron 20 ug/dL (50-170); Total Iron Binding Capacity 413 ug/dL (250-450); Transferrin Sat 5 % (15-50)
[2019-09-22 15:25] LABS: Absolute Basophil Count 0.05 k/cumm (0.0-0.2); Absolute Eosinophil Count 0.18 k/cumm (0.0-0.7); Absolute Lymphocyte Count 1.23 k/cumm (1.2-3.4); Absolute Monocyte Count 0.45 k/cumm (0.11-0.7); Eosinophils % 3.5; HCT 34.7 % (36.0-46.0); HGB 10.3 g/dL (12.0-15.5); Lymphocytes % 23.6; Mean Corp. HGB Concentration 29.7 g/dL (32.0-36.0); Mean Corpuscular Hemoglobin 22.5 pg (27.0-33.0); Mean Corpuscular Volume 75.9 fL (80-95); Mean Platelet Volume 10.7 fL (8.0-11.0); Monocytes % 8.6; Neutrophils % 63.3; Platelet Count 356 x1000/uL (130-400); RBC 4.57 m/cumm (4.00-5.20); RBC Distribution Width 18.6 % (11.7-14.6); White Blood Cell Count 5.21 k/cumm (4.4-10.8)
== END 2019-09-22 14:32 ==
LOC: LBN 14:12
PROVIDERS: PCP Nurse Practitioner Family; Visit Provider Surgery
DX: D64.9 Anemia, unspecified (principal)
CPT/HCPCS: 83540; 83550; 85025

== ENCOUNTER 2019-10-05 08:01 | Outpatient (CLI) | payer MEDICARE, SELFPAY ==
[2019-10-07 18:19] LABS: COVID-19 RT-PCR Result NEGATIVE (Negative)
== END 2019-10-05 08:21 ==
PROVIDERS: PCP Nurse Practitioner Family; Visit Provider Surgery
DX: Z01.818 Encounter for other preprocedural examination (principal)
CPT/HCPCS: U0003

== ENCOUNTER 2019-10-08 08:28 | Day surgery (SDC) | payer MEDICARE, SELFPAY ==
[2019-10-08 08:56] VITALS: BP 105/67; PULSE 73; RESP 16; TEMP 36.6; O2SAT 97
[2019-10-08] MEDS: Lactated Ringers 1,000 ML 100 ML IV (09:27)
--- NOTE | 2019-10-08 09:39 | PDOC.DSDIS_ITS ---
Discharge Plan Disposition Patient Disposition: HOME Condition: Good Discharge Details Reason For Visit: EGD, Colonoscopy Attending Provider: Jayashree Mccord Primary Care Provider: Marquita Cochran Home Meds and New Rx's Prescriptions: Continued ferrous sulfate 325 mg (65 mg iron) tablet 325 mg PO DAILY RF: 0 prednisone 20 mg tablet 20 mg PO DAILY RF: 0 hydrocodone-acetaminophen 10-325 mg Tablet 1 tab PO DAILY PRNRF: 0 calcium carbonate [Calcium 500] 500 mg calcium (1,250 mg) Tablet 500 mg PO BID RF: 0 fluticasone propionate 50 mcg/actuation Alexander,Suspension 1 spray INTRANASAL DAILY PRNRF: 0 lamotrigine 100 mg Tablet 100 mg PO DAILY RF: 0 topiramate [Topamax] 50 mg Tablet 50 mg PO BID RF: 0 cholecalciferol (vitamin D3) 25 mcg (1,000 unit) Tablet 25 mcg PO DAILY RF: 0 Rexulti 1 mg Tablet 1 mg PO DIRECTED RF: 0 Narcan 4 mg/actuation Alexander,Non-Aerosol 4 mg INTRANASAL DIRECTED PRNRF: 0 bupropion HCl [Wellbutrin SR] 100 MG tablet extended release 12 hr 150 mg PO HS RF: 0 lamotrigine [Lamictal] 100 MG tablet 150 mg PO BID RF: 0 bupropion HCl (smoking deter) 150 MG tablet extended release 12 hr 300 mg PO am RF: 0 alprazolam [Xanax] 1 MG tablet 1 mg PO HS RF: 0 Discontinued polyethylene glycol 3350 17 gram/dose powder 238 g PO ONCE Qty: 238 RF: 0 bisacodyl [Dulcolax (bisacodyl)] 5 mg tablet,delayed release (DR/EC) 5 mg PO ONCE Qty: 4 RF: 0 Discharge Instructions Additional Instructions: Findings: Your upper endoscopy showed normal gastric bypass anatomy. No ulcers were found. Your colonoscopy was normal. Follow up: Plan for routine screening colonoscopy in 10 years. If the anemia persists despite iron supplementation, consider a small bowel capsule endoscopy. Please call if you develop: fevers >101.5 Nausea or Vomiting Abdominal pain that is not transient DAY SURGERY UNIT POST COLONOSCOPY INSTRUCTIONS 1. Because there will be medication in your system for the next 24 hours, you may feel a little sleepy. Your coordination will be affected. Therefore: a. Do not drive or operate dangerous equipment for 24 hours. b. Do not drink alcohol beverages for 24 hours (not even beer). c. Plan to go home and rest for the day. 2. Generally there are no restrictions on your activity after a day or so has gone by, but you may feel a bit fatigued for a few days. 3 After you arrive home you may have a light meal and return to a normal diet as you can tolerate it without feeling sick to your stomach. 4. After surgery, you may feel pain or discomfort. This should be only transient, but if it persists please contact your doctor. 5. If there are any questions regarding the findings of your procedure, please feel free to contact your doctor. 6. If you are unable to contact your doctor with a problem, contact the hospital at [phone]. 7. Continue all your regular medications unless directed otherwise. I understand the above instructions and have no questions. Signature of Patient or Responsible Adult Escort Date/Time Name of Responsible Adult Escort Signature of Nurse Date/Time Activity:: Activity as Tolerated Diet:: As Tolerated Discharge Orders Discharge Orders: Discharge Order (Routine); Ordered 10/08/19 Ordered By: Jayashree Mccord DS: Diagnosis Discharge Diagnosis (1) S/P gastric bypass: Status: Acute (2) Normal colonoscopy: Status: Acute
--- NOTE | 2019-10-08 10:09 | STOM_PTH ---
PATIENT: Emily Tobin LOC: [facility] U#:[id number] AGE/SX: 54/F ROOM: RE10/08/[address]: Jayashree Mccord MD : [id number] BED: DIS: 10/08/2019 SPEC #: [id number] RECD: 10/08/19 12:25 STATUS: DIANA RESanjay #: [id number] PORTIA: 10/08/19 10:[address]: Jayashree Mccord DEPT: Surgical Specimen RECD BY: Jennifer Gutierrez ENTERED: 10/08/19 12:25 SP TYPE: STOMACH OTHR DR: Marquita Cochran Tissues: 1 - STOMACH BIOPSY Procedures: GROSS AND MICRO LEVEL 4 Comments: [id number]
--- NOTE | 2019-10-08 10:56 | W.COLOREPORT ---
Date of service: 10/08/19 Time of Service: 10:56 Colonoscopy Report Date of procedure: 10/08/19 Pre-op diagnosis general: Anemia, colon screening Post-op diagnosis procedure note: other (Normal gastric bypass, normal colon) Procedure: EGD with biopsy Colonoscopy Surgeon: Jayashree Mccord Indications: This patient presents for evaluate of anemia and heme positive stool. She has had gastric bypass. This is her first screening colonoscopy. No FH colon cancer. Procedure Description: The patient was placed in the left lateral position and propofol titrated to sedation. The endoscope was advanced into the esophagus under direct visualization. The scope was passed through the stomach pouch and into the small bowel. There was no marginal ulcer or stricture. Routine biopsies were taken from the gastric body to evaluate for H pylori. The GE junction was inspected and showed no significant stricture, inflammation, masses or Barretts. The scope was slowly withdrawn with no other esophageal lesions found. Digital rectal examination revealed no abnormalities. The scope was advanced to the cecum without difficulty. The ileocecal valve and appendiceal orifice were clearly identified. The prep was good. The scope was slowly withdrawn over the course of greater than 6 minutes with no abnormalities seen in the ascending, transverse, descending, sigmoid colon or rectum including on retroflexed view. The patient tolerated the procedure well and was stable to recovery. Plan for routine screening colonoscopy in 10 years or sooner if symptoms indicate. If the anemia persists despite adequate supplementation, then small bowel capsule endoscopy can be considered.
[2019-10-08 11:06] VITALS: BP 109/72; PULSE 64; RESP 16; TEMP 36.1; O2SAT 100
== END 2019-10-08 11:25 | disposition home or self-care (01) ==
PROVIDERS: PCP Nurse Practitioner Family; Visit Provider Surgery
PROC: (CPT 43239; principal; 2019-10-08 10:15)
DX: Z12.11 Encounter for screening for malignant neoplasm of colon; Z98.84 Bariatric surgery status; R19.5 Other fecal abnormalities; D50.9 Iron deficiency anemia, unspecified
CPT/HCPCS: 43239; G0121; 88305

== ENCOUNTER 2019-10-18 01:52 | Outpatient (CLI) | payer MEDICARE, SELFPAY ==
--- NOTE | 2019-10-18 | DI.MAMMO_ITS ---
EXAM: MG MAMMO SCREENING CLINICAL HISTORY: SCREENING,Z12.39 TECHNIQUE: Bilateral full field digital CC and MLO mammographic images were obtained with 3D tomosyn thesis and utilizing computer aided detection (CAD). COMPARISON: Available for comparison. FINDINGS: Masses/Architectural Distortion: There is continued decrease in size of the nodules in the left breas t which were previously noted to be cysts. No suspicious masses are seen. Microcalcifications: No suspicious pleomorphic-type are seen. Skin Thickening/Nipple Retraction: None. IMPRESSION: 1. No significant interval change with no specific features of malignancy noted. 2. Unless there is more urgent need, screening mammography is recommended, as per [employer] [employer] guidelines. BI-RADS Category 2 - Benign Findings Breast Density - Category C - Heterogeneously dense The mammogram demonstrates the patient's breast tissue is dense. Dense breast tissue is very common a nd is not abnormal but dense breast tissue can make it harder to find cancer on a mammogram. Also, de nse breast tissue may increase their breast cancer risk. This information about the result of the landmark medical centerram report was provided to the patient to raise their awareness. Use this report when you speak wi th the patient about their risks for breast cancer, which includes their family history. At that time , you may recommend for more screening tests (Ultrasound or MRI) as they might be useful based on the ir risk. A negative radiographic report should not delay biopsy if a dominant or clinically suspicious mass is present. Up to ten percent of cancers are not identified on mammography. A negative report may reinforce clinical impression. Adenosis and dense breasts may obscure an underlying neoplasm. False positive reports average 6 to 10%. Patient will receive a letter notifying them of these results.
== END 2019-10-18 02:12 ==
PROVIDERS: PCP Nurse Practitioner Family; Visit Provider Nurse Practitioner Family
DX: Z12.31 Encounter for screening mammogram for malignant neoplasm of breast (principal); R92.2 Inconclusive mammogram
CPT/HCPCS: 77063; 77067

== ENCOUNTER 2019-10-19 10:25 | Outpatient (CLI) | payer MEDICARE, SELFPAY ==
--- NOTE | 2019-10-19 10:35 | PDOC.PAIN_ITS ---
Pain Clinic Procedure Note Procedure Note Procedure Note: Lumbar/Sacral Medial Branch Blocks RAFA ROSNETHAL has been referred to the [facility] for lumbar/sacral medial branch blocks. Pre-operative diagnosis: lumbar spondylosis Post-operative diagnosis: same as above Patient was interviewed and the medical record reviewed. There were no medical, pharmacologic, radiographic or other structural contraindications to attempting fluoroscopically guided local anesthetic lumbar/sacral medial branch blocks. Risks and expected side effects as well as potential benefit of the procedure were reviewed and voiced concerns addressed. The printed consent form was signed and witnessed. Standard time-out procedure was performed. Patient was placed in the prone position on the fluoroscopy table and automated blood pressure cuff and pulse oximeter applied. The skin entry points for approaching the anatomic target points of the segmental medial branches of bilateral L3, L4, L5-DR were identified with anfluoroscopy and marked. Following thorough Chlorhexadine preparation of the skin and draping and 1% lidocaine infiltration of the skin entry points and subcutaneous tissues, a 22 gauge spinal needle was placed under fluoroscopic guidance down on to the target point for each respective segmental medial branch.Position was confirmed in A/P, oblique and lateral views with 0.25ml of omnipaque 240. Then 0.5ml 0.5% Bupivacaine was injected. Vital signs were stable throughout the procedure and were as recorded in the docflowsheet by the nursing staff. Follow up plans and appointments were discussed and was instructed to keep careful note of how the usual pain was modified by these injections. Specifically was asked to keep a pain diary for the next 24 hours using a numeric pain scale of 0-10 and report these results at the follow-up visit. Po st procedure instruction was given as documented in the nursing documentation and having met discharge criteria. Patient was discharged from the [facility]. Based on the medial branches blocked today, if the patient has adequate relief and we are able to proceed to radiofrequency ablation, the treatment should result in the denervation of the bilateral L4/5 and L5/S1. We would expect to denervate a total of 4 facets during the radiofrequency ablation. COMMENTS: patient tolerated procedure well. No issues or complications. Pre-procedure pain level 7 of 10 with lumbar extension. Post-procedure pain level 0out of 10. patient is instructed to engage in physical activities that typically aggravate her back pain. Vincent Boone MD Pain Management CC: Marquita Cochran
[2019-10-19 10:39] VITALS: BP 101/66; PULSE 71; RESP 18; TEMP 37.3; O2SAT 98
[2019-10-19 11:17] VITALS: BP 140/98; PULSE 74; RESP 18; O2SAT 98
--- NOTE | 2019-10-19 11:17 | DI.RAD_ITS ---
EXAM: XR PAIN CLINIC LUMBAR SP 2V CLINICAL HISTORY: Dx: Lumbar Spondylosis TECHNIQUE: 2D and realtime digital imaging was performed. CONTRAST MATERIAL: Refer to procedure report. COMPARISON: No exams were available for comparison FINDINGS: Fluoroscopy was provided for Dr. Boone during the performance of a bilateral lumbar medial branch block . Please refer to the procedure report for complete details. Fluoro time: 50.8 seconds IMPRESSION:
[2019-10-19] MEDS: Omnipaque 240 MG/ML 50 ML BTL IJ (11:24)
[2019-10-19] MEDS: Bupivacaine 0.5% Pres-Free 10 ML VIAL IJ (11:24)
== END 2019-10-19 10:45 ==
PROVIDERS: PCP Nurse Practitioner Family; Visit Provider Internal Medicine
DX: M47.816 Spondylosis without myelopathy or radiculopathy, lumbar region (principal)
CPT/HCPCS: 64493; 64494; 72100; Q9967

== ENCOUNTER 2019-11-23 14:38 | Outpatient (CLI) | payer MEDICARE, SELFPAY ==
--- NOTE | 2019-11-23 06:00 | DI.RAD_ITS ---
EXAM: XR PAIN CLINIC LUMBAR SP 2V CLINICAL HISTORY: Dx:Lumbar Spondylosis, LUMBAR MEDIAL BRANCH BLOCK TECHNIQUE: 2D and realtime digital imaging was performed. Fluoroscopy was provided in the OR COMPARISON: No exams were available for comparison FINDINGS: C-arm fluoroscopy utilized by Dr. Boone during reported lumbar medial branch block. Hard copy shows nee dle placement and injections bilaterally at what appear to be the L3-4, L4-5, L5-S1 levels. Fluoro time, 87 seconds. IMPRESSION: RADIATION DOSE DELIVERED: Total DLP
--- NOTE | 2019-11-23 14:42 | PDOC.PAIN ---
Pain Clinic Procedure Note Procedure Note Procedure Note: Lumbar/Sacral Medial Branch Blocks RAFA ROSENTHAL has been referred to the [facility] for lumbar/sacral medial branch blocks. Pre-operative diagnosis: lumbar spondylosis Post-operative diagnosis: same as above Patient was interviewed and the medical record reviewed. There were no medical, pharmacologic, radiographic or other structural contraindications to attempting fluoroscopically guided local anesthetic lumbar/sacral medial branch blocks. Risks and expected side effects as well as potential benefit of the procedure were reviewed and voiced concerns addressed. The printed consent form was signed and witnessed. Standard time-out procedure was performed. Patient was placed in the prone position on the fluoroscopy table and automated blood pressure cuff and pulse oximeter applied. The skin entry points for approaching the anatomic target points of the segmental medial branches of bilateral L3, L4, L5-DR were identified with anfluoroscopy and marked. Following thorough Chlorhexadine preparation of the skin and draping and 1% lidocaine infiltration of the skin entry points and subcutaneous tissues, a 22 gauge spinal needle was placed under fluoroscopic guidance down on to the target point for each respective segmental medial branch.Position was confirmed in A/P, oblique and lateral views with 0.25ml of omnipaque 240. Then 0.5ml 2% Lidocaine was injected. Vital signs were stable throughout the procedure and were as recorded in the docflowsheet by the nursing staff. Follow up plans and appointments were discussed and was instructed to keep careful note of how the usual pain was modified by these injections. Specifically was asked to keep a pain diary for the next 24 hours using a numeric pain scale of 0-10 and report these results at the follow-up visit. Post procedure instruction was given as documented in the nursing documentation and having met discharge criteria. Patient was discharged from the [facility]. Based on the medial branches blocked today, if the patient has adequate relief and we are able to proceed to radiofrequency ablation, the treatment should result in the denervation of the bilateral L4/5 and L5/S1. We would expect to denervate a total of 4 facets during the radiofrequency ablation. COMMENTS: patient tolerated procedure well. No issues or complications. Due to patient's body habitus, AP approach was used with 3.5'' 25 gauge spinal needle - may need 150mm Coolief probe if ipsilateral oblique approach will be used on day of RFA. Vincent Boone MD Pain Management CC: Marquita Cochran
[2019-11-23 14:55] VITALS: BP 123/70; PULSE 75; RESP 16; TEMP 37.1; O2SAT 96
[2019-11-23] MEDS: Lidocaine 2% Pres-Free 5 ML VIAL IJ (15:28)
[2019-11-23] MEDS: Omnipaque 240 MG/ML 50 ML BTL IJ (15:32)
[2019-11-23 15:37] VITALS: BP 130/94; PULSE 73; RESP 18; O2SAT 100
== END 2019-11-23 14:58 ==
PROVIDERS: PCP Nurse Practitioner Family; Visit Provider Internal Medicine
DX: M47.816 Spondylosis without myelopathy or radiculopathy, lumbar region (principal)
CPT/HCPCS: 64493; 64494; 72100; Q9967

== ENCOUNTER 2019-11-26 01:57 | Outpatient (CLI) | payer MEDICARE, SELFPAY ==
[2019-11-26 10:34] LABS: Iron 95 ug/dL (50-170); Total Iron Binding Capacity 340 ug/dL (250-450); Transferrin Sat 28 % (15-50)
[2019-11-26 10:46] LABS: Ferritin 16 ng/mL (8-252)
== END 2019-11-26 02:17 ==
PROVIDERS: PCP Nurse Practitioner Family; Visit Provider Nurse Practitioner Family
DX: R53.83 Other fatigue (principal); D50.9 Iron deficiency anemia, unspecified
CPT/HCPCS: 36415; 82728; 83540; 83550

== ENCOUNTER 2019-11-29 18:13 | Outpatient (REF) | payer MEDICARE, SELFPAY ==
[2019-11-29 19:49] LABS: Abs Immature Grans 0.01 10^3/uL (0.0-0.06); Absolute Basophil Count 0.04 10^3/uL (0.0-0.2); Absolute Eosinophil Count 0.15 10^3/uL (0.0-0.7); Absolute Lymphocyte Count 1.68 10^3/uL (1.2-3.4); Absolute Monocyte Count 0.46 10^3/uL (0.1-0.8); Absolute Neutrophil Count 2.49 10^3/uL (1.2-6.7); Basophils % 0.8; Eosinophils % 3.1; HCT 40.6 % (36.0-46.0); HGB 12.2 g/dL (11.2-15.7); Immature Grans % 0.2; Lymphocytes % 34.8; MCH 25.3 pg (27.0-33.0); MCV 84.1 fL (80-95); MPV 11.1 fL (8.0-11.0); Monocytes % 9.5; Neutrophils % 51.6; Nucleated RBC 0 %; Platelet Count 311 10^3/uL (130-400); RBC 4.83 10^6/uL (3.93-5.22); RDW 21.8 % (11.7-14.6); WBC 4.83 10^3/uL (4.4-10.8)
[2019-11-29 21:05] LABS: Anisocytosis 1+; Diff Comment RBC Morph Reviewed
== END 2019-11-29 18:33 ==
LOC: NCHCN 18:13
PROVIDERS: PCP Nurse Practitioner Family; Visit Provider Nurse Practitioner Family
DX: D64.9 Anemia, unspecified (principal); M53.80 Other specified dorsopathies, site unspecified; E16.2 Hypoglycemia, unspecified
CPT/HCPCS: 85025

== ENCOUNTER 2019-12-21 12:47 | Outpatient (CLI) | payer MEDICARE, SELFPAY ==
--- NOTE | 2019-12-21 06:00 | DI.RAD_ITS ---
EXAM: XR PAIN CLINIC LUMBAR SP 2V CLINICAL HISTORY: Dx:Lumbar Spondylosis. TECHNIQUE: Fluoroscopy was provided for the referring physician for guidance with performing injecti on procedure. COMPARISON: No exams were available for comparison FINDINGS: Please see procedure note for details. Fluoro Time: 74.2 seconds RADIATION DOSE DELIVERED:
[2019-12-21 12:59] VITALS: BP 121/84; PULSE 71; RESP 20; TEMP 36.8; O2SAT 98
[2019-12-21] MEDS: fentaNYL 100 MCG/2 ML VIAL IVP ×3 (13:30→14:03)
[2019-12-21] MEDS: Lactated Ringers 1,000 ML 80 ML IV (13:30)
[2019-12-21 14:04] VITALS: BP 134/87; PULSE 70; RESP 16; O2SAT 100
--- NOTE | 2019-12-21 14:17 | PDOC.PAIN ---
Pain Clinic Procedure Note Procedure Note Procedure Note: Bilateral Lumbar Radiofrequency with Coolief Machine PROCEDURE NOTE Date of Service: December 21, 2019 Patient: RAFA ROSENTHAL Provider: Vincent Boone MD Pre Operative Diagnosis: lumbar spondylosis Post Operative Diagnosis: same as above PROCEDURE: Radiofrequency Ablation of medial branches - bilateral L3, L4, L5-DR RAFA ROSENTHAL was brought into the fluoroscopy suite and positioned into the prone position on the fluoroscopy table and allowed to adjust to a position of comfort. A grounding pad was placed on the left thigh. The lumbar region was widely prepped with a chloraprep solution, allowed to air dry and draped in standard sterile surgical fashion. Local anesthesia was provided by ~5 mL of 1% lidocaine delivered with a 25g needle at each site. A 17g 100mm radiofrequency introducer needle was placed to the planned anatomic targets guided with intermittent fluoroscopy with a perpendicular approach to terminally place at the junction of the superior articular process and the transverse process of the bilateral L3, L4 and the base of the sacral ala on the bilateral for the L5 medial branch nerve. The stylets were removed and radiofrequency probes with a 4mm active tip were then inserted. Needle tip position of the probes was verified in the AP, oblique, and lateral views. At each site, the medial branch nerve was stimulated at 2 Hz to a maximum 1-2 volts determined to finalize safe needle and electrode placement. The patient was awake and responsive during this portion of the procedure. Each target was anesthetized with 1mL of 2% lidocaine for anesthesia for lesioning and then each target was lesioned at 80 degrees Celsius for 2 minutes and 30 seconds. Tissue impedences were noted to be between 250 and 500 Ohms. Post lesioning at each site, 0.3cc of solution containing 1cc of 80mg of depomedrol mixed with 2cc of 0.5% Bupivocaine was injected to reduce risk of post-RF neuritis. Electrodes and needles were then removed and bandages placed over the needle placement sites, the patient then returned to the supine position on a stretcher and transported to the recovery room without hemodynamic, neurologic, or allergic reactions. Fluoroscopic images were printed for hard copy recording and digitally archived. POST PROCEDURE EVALUATION: IMPRESSION: 1. Summary of procedure. patient tolerated procedure well without issue 2. Previously documented allergy to valium with vomiting, so IV versed was omitted from today's IV anxiolysis 3. Estimated Blood Loss: minimal less than 3cc 4. Patient received total of 75mcg of IV Fentanyl Follow up plans and appointments were discussed with the RAFA . Post procedure instruction was given as documented in nursing documentation and having met discharge criteria, RAFA was discharged from the [facility]. COMMENTS: No complications. F/U with our office as needed. I personally performed this entire procedure. Vincent Boone MD Attending Physician
[2019-12-21] MEDS: Bupivacaine 0.5% Pres-Free 10 ML VIAL IJ (14:33)
[2019-12-21] MEDS: Lidocaine 1% Pres-Free 30 ML VIAL IJ (14:33)
[2019-12-21] MEDS: Lidocaine 2% Pres-Free 5 ML VIAL IJ (14:33)
[2019-12-21] MEDS: methylPREDNISolone ACETATE 80 MG/ML VIAL IJ (14:36)
== END 2019-12-21 13:07 ==
PROVIDERS: PCP Nurse Practitioner Family; Visit Provider Internal Medicine
DX: M47.816 Spondylosis without myelopathy or radiculopathy, lumbar region (principal)
CPT/HCPCS: 64635; 64636; 72100; J1040; J3010

== ENCOUNTER 2020-09-06 19:51 | Outpatient (REF) | payer MEDICARE, SELFPAY ==
[2020-09-06 20:38] LABS: HCT 42.4 % (36.0-46.0); HGB 13.5 g/dL (11.2-15.7); MCH 29.8 pg (27.0-33.0); MCHC 31.8 % (32.0-36.0); MCV 93.6 fL (80-95); Platelet Count 243 10^3/uL (130-400); RBC 4.53 10^6/uL (3.93-5.22); RDW 12.4 % (11.7-14.6); RDW-SD 43.1 fL; WBC 4.81 10^3/uL (4.4-10.8)
[2020-09-06 20:57] LABS: Anion Gap 6.8 mmol/L (3-11); BUN 16 mg/dL (7-18); CO2 28.2 mmol/L (21.0-32.0); CREATININE 0.9 mg/dL (0.55-1.02); Chloride 108 mmol/L (98-107); Glucose 86 mg/dL (74-106); Potassium 4.5 mmol/L (3.5-5.1); Sodium 143 mmol/L (136-145); TSH (W/Ref FT4) 2.14 uIU/mL (0.36-3.74)
[2020-09-07 01:55] LABS: Vitamin D 25 Total 31.7 ng/mL (30-100)
[2020-09-07 16:36] LABS: Estradiol 17 pg/mL (See Note)
== END 2020-09-06 19:52 | disposition home or self-care (01) ==
LOC: NCHCN 19:51
PROVIDERS: PCP Nurse Practitioner Family; Visit Provider Nurse Practitioner Family
DX: D64.9 Anemia, unspecified (principal); M67.40 Ganglion, unspecified site; N95.1 Menopausal and female climacteric states; M51.9 Unspecified thoracic, thoracolumbar and lumbosacral intervertebral disc disorder; E55.9 Vitamin D deficiency, unspecified
CPT/HCPCS: 80048; 82306; 85027; 82670; 84443

== ENCOUNTER 2020-09-07 09:39 | Outpatient (REF) | payer MEDICARE, SELFPAY ==
[2020-09-07 19:43] LABS: Calculated LDL 113 mg/dL (<100); Cholesterol 192 mg/dL (<200); HDL Cholesterol 58 mg/dL (40-60); Triglyceride 107 mg/dL (<150)
== END 2020-09-07 09:40 | disposition home or self-care (01) ==
LOC: NCHCN 09:39
PROVIDERS: PCP Nurse Practitioner Family; Visit Provider Nurse Practitioner Family
DX: Z00.00 Encounter for general adult medical examination without abnormal findings (principal)
CPT/HCPCS: 80061

== ENCOUNTER → 2020-10-04 12:32 | Outpatient (CLI) | payer MEDICARE, SELFPAY ==
--- NOTE | 2020-10-04 15:35 | DI.RAD_ITS ---
Exam(s) XR KNEE RT 3V AP,LAT,MAURICIO EXAM: XR KNEE RT 3V AP,LAT,MAURICIO CLINICAL HISTORY: RT KNEE PAIN M25.561, HX ARTHRITIS, LAP ARTHROSCOPY 2012, ? WORSENING. TECHNIQUE: 2D digital imaging was performed. COMPARISON: CR XR knee RT 4V AP,lat,mauricio,pat from 09/07/2018 FINDINGS: There is no evidence of fracture or obvious joint effusion. Significant degenerative changes in the medial compartment of the right knee are again noted with mild progression. Lesser amount of degener ative changes again noted in the lateral compartment. Advanced degenerative changes again noted in t he patellofemoral compartment. IMPRESSION: Advanced osteoarthritic degenerative changes as described above. Mild further progression when prachi red to September 2018. There is no obvious joint effusion. DATA REPOSITORY: RADIATION DOSE DELIVERED:
== END ==
PROVIDERS: PCP Nurse Practitioner Family; Visit Provider Nurse Practitioner Family
DX: M17.11 Unilateral primary osteoarthritis, right knee (principal); Z98.890 Other specified postprocedural states
CPT/HCPCS: 73562

== ENCOUNTER → 2020-10-26 10:00 | Outpatient (BNVA) | payer MEDICARE, SELFPAY | PROVIDERS: PCP Nurse Practitioner Family; Referring Provider Nurse Practitioner Family; Visit Provider Student in an Organized Health Care Education/Training Program | DX: M17.11 Unilateral primary osteoarthritis, right knee (principal); M65.4 Radial styloid tenosynovitis [de Quervain]; Z98.890 Other specified postprocedural states | CPT/HCPCS: 20610; 99213; J1040 ==

== ENCOUNTER 2020-11-07 12:36 | Outpatient (CLI) | payer MEDICARE, SELFPAY ==
[2020-11-07 12:59] VITALS: BP 132/85; PULSE 75; RESP 20; TEMP 36.6; O2SAT 100
[2020-11-07] MEDS: Lactated Ringers 1,000 ML 80 ML IV (13:32)
[2020-11-07] MEDS: fentaNYL 100 MCG/2 ML VIAL IVP ×4 (13:40→14:05)
[2020-11-07 14:13] VITALS: BP 143/93; PULSE 75; RESP 15; O2SAT 100
--- NOTE | 2020-11-07 14:13 | DI.RAD_ITS ---
Exam(s) XR PAIN CLINIC LUMBAR SP 2V EXAM: XR PAIN CLINIC LUMBAR SP 2V CLINICAL HISTORY: Dx: Lumbar Spondylosis TECHNIQUE: 2D and realtime digital imaging was performed. CONTRAST MATERIAL: Refer to procedure report. COMPARISON: No exams were available for comparison FINDINGS: Fluoroscopy was provided for Dr. Boone during the performance of a lumbar radiofrequency ablation. Ple ase refer to the procedure report for complete details. Ka,r=32.87 mGy IMPRESSION:
[2020-11-07] MEDS: methylPREDNISolone ACETATE 40 MG/ML VIAL IJ (14:18)
[2020-11-07] MEDS: Bupivacaine 0.5% Pres-Free 10 ML VIAL IJ (14:18)
[2020-11-07] MEDS: Lidocaine 1% Pres-Free 30 ML VIAL IJ (14:18)
[2020-11-07] MEDS: Lidocaine 2% Pres-Free 5 ML VIAL IJ (14:18)
--- NOTE | 2020-11-07 14:20 | PDOC.PAIN ---
Pain Clinic Procedure Note Procedure Note Procedure Note: Bilateral Lumbar Radiofrequency with Coolief Machine PROCEDURE NOTE Date of Service: November 07, 2020 Patient: Emily Tobin Provider: Vincent Boone MD Pre Operative Diagnosis: Lumbosacral Spondylosis without Myelopathy Post Operative Diagnosis: Same Post procedure pain; VAS= 7/10 PROCEDURE: Radiofrequency Ablation of medial branches - RT L3 L4 L5, LT L3 L4 L5 and lateral branches of bilateral S1. Emily Tobin was brought into the fluoroscopy suite and positioned into the prone position on the fluoroscopy table and allowed to adjust to a position of comfort. A grounding pad was placed on the [right/left] thigh. The lumbar region was widely prepped with a chloraprep solution, allowed to air dry and draped in standard sterile surgical fashion. Local anesthesia was provided by 15mL of 1% Lidocaine delivered with a 25g needle. A 17g 100mm radiofrequency introducer needle was placed to the planned anatomic targets guided with intermittent fluoroscopy with a perpendicular approach to terminally place at the junction of the superior articular process and the transverse process of the bilateral L3, L4, L5, the base of the sacral ala on the bilateral for the L5 medial branch nerve. The stylets were removed and radiofrequency probes with a 4mm active tip were then inserted. Needle tip position of the probes was verified in the AP, oblique, and lateral views. At each site, the medial branch nerve was stimulated at 2 Hz to a maximum 1-2 volts determined to finalize safe needle and electrode placement. The patient was awake and responsive during this portion of the procedure. Each target was anesthetized with 1mL of 2% Lidocaine for anesthesia for lesioning and then each target was lesioned at 80 degrees Celsius for 2 minutes and 30 seconds. Tissue impedences were noted to be between 250 and 500 Ohms. Electrodes and needles were then removed and bandages placed over the needle placement sites, the patient then returned to the supine position on a stretcher and transported to the recovery room without hemodynamic, neurologic, or allergic reactions. Fluoroscopic images were printed for hard copy recording and digitally archived. POST PROCEDURE EVALUATION: IMPRESSION: 1. Summary of procedure. Medication given is documented in the MAR. Total of 100mcg of Fentanyl given. 2. The patient will be contacted in 1-3 weeks 3. Estimated Blood Loss: <5 mls 4. Fluoroscopy time: Documented in the EMR. Follow up plans and appointments were discussed with the Emily . Post procedure instruction was given as documented in nursing documentation and having met discharge criteria, Emily was discharged from the [facility]. COMMENTS: No apparent complications. Post-procedure pain: VAS= 0/10. F/U with our office as needed. I personally performed this entire procedure. Vincent Boone MD Attending Physician Pain Management
== END 2020-11-07 12:37 | disposition home or self-care (01) ==
LOC: PC 12:38
PROVIDERS: PCP Nurse Practitioner Family; Visit Provider Internal Medicine
DX: M47.817 Spondylosis without myelopathy or radiculopathy, lumbosacral region (principal)
CPT/HCPCS: 64635; 64636; 72100; J1030; J3010

== ENCOUNTER 2020-11-10 03:26 | Outpatient (CLI) | payer MEDICARE, SELFPAY ==
[2020-11-10 11:21] LABS: Source Nasal/Nares
[2020-11-10 13:49] LABS: COVID-19 PCR Negative (Negative)
== END 2020-11-10 03:27 | disposition home or self-care (01) ==
LOC: LBO 03:26
PROVIDERS: PCP Nurse Practitioner Family; Visit Provider Student in an Organized Health Care Education/Training Program
DX: Z20.822 Contact with and (suspected) exposure to COVID-19 (principal); Z01.818 Encounter for other preprocedural examination
CPT/HCPCS: 87635

== ENCOUNTER 2020-11-14 11:38 | Day surgery (SDC) | payer MEDICARE, SELFPAY ==
--- NOTE | 2020-11-10 13:12 | W.ANESPRE ---
General Info Height: 5 ft 4.6 in Weight: 119.748 kg Body Mass Index (BMI): 44.4 Surgical Procedure: Operation Date: 11/14/20 14:10 Proposed Procedures Side Surgeon p Wrist Dequervains Release & wrist csyt exc Right Rickie Vázquez MD Meds Allergies and Home Medications Allergies Allergy/AdvReac Type Severity Reaction Status Date / Time diazepam AdvReac Severe VOMITING Unverified 11/10/20 08:48 Penicillins AdvReac Severe Skin Rash Unverified 11/10/20 08:48 prochlorperazine AdvReac Severe PANICK Unverified 11/10/20 08:48 [Prochlorperazine] ATTACKS zolpidem [Zolpidem] AdvReac Intermediate SLEEP Unverified 11/10/20 08:48 WALKING AND TALKING clonazepam [From Klonopin] AdvReac Mild NOT Unverified 11/10/20 08:48 EFFECTIVE Home Medication Medication Instructions Recorded bupropion HCl [Wellbutrin SR] 150 mg PO HS tab-cap 04/26/14 lamotrigine [Lamictal] 150 mg PO DAILY tab-cap 04/26/14 alprazolam [Xanax] 1 mg PO HS tab-cap 05/30/14 Narcan 4 mg INTRANASAL DIRECTED PRN 08/31/19 Rexulti 1 mg PO DIRECTED 08/31/19 cholecalciferol (vitamin D3) 25 mcg PO DAILY 08/31/19 lamotrigine 100 mg PO DAILY 08/31/19 ferrous sulfate 325 mg (65 mg 325 mg PO DAILY 09/22/19 iron) tablet bupropion HCl 300 mg 24 hr tablet, 300 mg PO QAM 10/26/20 extended release estradiol 0.5 mg tablet 0.5 mg PO DAILY #30 tab 11/07/20 medroxyprogesterone 2.5 mg tablet 2.5 mg PO DAILY #30 tab 11/07/20 PFS Active Problems Active Problems: Problem Status Onset Code Normal colonoscopy Hot flashes R23.2 Weight gain R63.5 Primary osteoarthritis of right knee M17.11 De Quervain's tenosynovitis, right M65.4 Hormone replacement therapy (HRT) Z79.890 S/P gastric bypass Z98.84 Chronic iron deficiency anemia D50.9 Medical History Medical History (Updated 11/10/20 @ 08:46 by Conner Faye) Abdominal pain Abnormal findings on diagnostic imaging of other abdominal regions, including retroperitoneum Adhesive capsulitis of left shoulder associated with type 2 diabetes mellitus (04/07/17) chronic headaches Chronic iron deficiency anemia Community acquired pneumonia Degenerative disc disease, lumbar Depression Encounter for counseling regarding contraception Fatigue Hormone replacement therapy (HRT) 10/2020. 0.5mg/2.5mg. Low back pain Migraine Mood disorder 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 denies this Pain in left shoulder Pernicious anemia Personality disorder Pt. denies this post trauma stress disorder Per pt. requests when waking up for nobody to touch her neck- Preventative health care Primary fibromyalgia syndrome Surgical History Surgical History section twice Cholecystectomy Endoscopic Carpal Tunnel release bilateral Gastric Bypass Hx of gastric bypass S/P gastric bypass Tobacco Smoking/Tobacco Use Status: Never Alcohol Alcohol Intake: current Alcohol intake frequency: holidays/special occasions only Substance Use Substance use: Never Substance use type: does not use Prental History History 6 Para 5 Hx # Term Pregnancies 5 Multiple births Hx # Pregnancies Ectopic pregnancies AB induced Hx Number of Living Children 5 AB spontaneous 1 Vital Signs and Lab Results Lab Results Blood Type / Crossmatch: No Data to Display Complete Blood Count: No Data to Display Complete Metabolic Panel: No Data to Display Liver Function Panel: No Data to Display Coagulation Panel: No Data to Display Cardiac Panel: No Data to Display Arterial Blood Gas: No Data to Display Venous Blood Gas: No Data to Display Pancreas Panel: No Data to Display Thyroid Panel: No Data to Display Infectious Disease: Coronavirus 2019 Source Nasal/Nares 11/10/20 10:07 11/10/20 Blood Cultures: No Data to Display Toxicology Panel: No Data to Display Panel: No Data to Display Anesthesia Assessment and Plan Preoperative Comments:: PTSD: needs to wake up sitting up, without hands on/near her neck.
[2020-11-14 12:07] VITALS: BP 130/82; PULSE 71; RESP 16; TEMP 36.6; O2SAT 100
--- NOTE | 2020-11-14 12:45 | W.ANESPRE ---
General Info Date of Service Date Performed: 11/14/20 Height: 5 ft 4.6 in Weight: 115.9 kg Body Mass Index (BMI): 43.0 Surgical Procedure: Operation Date: 11/14/20 14:10 Proposed Procedures Side Surgeon p Wrist Dequervains Release & wrist csyt exc Right Rickie Vázquez MD Meds Allergies and Home Medications Allergies Allergy/AdvReac Type Severity Reaction Status Date / Time diazepam AdvReac Severe VOMITING Verified 11/14/20 12:15 Penicillins AdvReac Severe Skin Rash Verified 11/14/20 12:15 prochlorperazine AdvReac Severe PANICK Verified 11/14/20 12:15 [Prochlorperazine] ATTACKS zolpidem [Zolpidem] AdvReac Intermediate SLEEP Verified 11/14/20 12:15 WALKING AND TALKING clonazepam [From Klonopin] AdvReac Mild NOT Verified 11/14/20 12:15 EFFECTIVE Home Medication Medication Instructions Recorded bupropion HCl [Wellbutrin SR] 150 mg PO HS tab-cap 04/26/14 lamotrigine [Lamictal] 150 mg PO DAILY tab-cap 04/26/14 alprazolam [Xanax] 1 mg PO HS tab-cap 05/30/14 Narcan 4 mg INTRANASAL DIRECTED PRN 08/31/19 Rexulti 1 mg PO DIRECTED 08/31/19 cholecalciferol (vitamin D3) 25 mcg PO DAILY 08/31/19 lamotrigine 100 mg PO DAILY 08/31/19 ferrous sulfate 325 mg (65 mg 325 mg PO DAILY 09/22/19 iron) tablet bupropion HCl 300 mg 24 hr tablet, 300 mg PO QAM 10/26/20 extended release estradiol 0.5 mg tablet 0.5 mg PO DAILY #30 tab 11/07/20 medroxyprogesterone 2.5 mg tablet 2.5 mg PO DAILY #30 tab 11/07/20 Current Visit Medications: Current Medications Generic Name Dose Route Start Last Admin Trade Name Freq PRN Reason Stop Dose Admin Cefazolin Sodium 3,000 mg/ 100 mls @ 200 mls/hr 11/14/20 06:00 Sodium Chloride IVPB 11/14/20 23:59 PREOP NORMA Ringer's Solution 1,000 mls @ 80 mls/hr 11/14/20 06:00 IV 12/10/20 23:59 INFUSION NORMA IV Miscellaneous Supplies 1 each 11/14/20 23:59 Iv Access IV 12/10/20 23:59 DIRECTED NORMA Sodium Chloride 0 ml 11/14/20 23:59 Normal Saline Flush 10 Ml Syr IV 12/10/20 23:59 PRN PRN Sodium Chloride 0 ml 11/14/20 23:59 Normal Saline 10 Ml Vial IJ 12/10/20 23:59 DIRECTED PRN Sterile Water 0 ml 11/14/20 23:59 Water,Injection,Sterile 10 Ml Vial IJ 12/10/20 23:59 DIRECTED PRN PFSH Active Problems Active Problems: Problem Status Onset Code Normal colonoscopy Hot flashes R23.2 Weight gain R63.5 Primary osteoarthritis of right knee M17.11 De Quervain's tenosynovitis, right M65.4 Hormone replacement therapy (HRT) Z79.890 S/P gastric bypass Z98.84 Chronic iron deficiency anemia D50.9 Medical History Medical History Abdominal pain Abnormal findings on diagnostic imaging of other abdominal regions, including retroperitoneum Adhesive capsulitis of left shoulder associated with type 2 diabetes mellitus (04/07/17) chronic headaches Chronic iron deficiency anemia Community acquired pneumonia Degenerative disc disease, lumbar Depression Encounter for counseling regarding contraception Fatigue Hormone replacement therapy (HRT) 10/2020. 0.5mg/2.5mg. Low back pain Migraine Mood disorder 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 denies this Pain in left shoulder Pernicious anemia Personality disorder Pt. denies this post trauma stress disorder Per pt. requests when waking up for nobody to touch her neck- Preventative health care Primary fibromyalgia syndrome Surgical History Surgical History section twice Cholecystectomy Endoscopic Carpal Tunnel release bilateral Gastric Bypass Hx of gastric bypass S/P gastric bypass Tobacco Smoking/Tobacco Use Status: Never Alcohol Alcohol Intake: current Alcohol intake frequency: holidays/special occasions only Substance Use Substance use: Never Substance use type: does not use and former substance user Prental History History 6 Para 5 Hx # Term Pregnancies 5 Multiple births Hx # Pregnancies Ectopic pregnancies AB induced Hx Number of Living Children 5 AB spontaneous 1 Vital Signs and Lab Results Vital Signs Most Recent Vital Signs in EMR: Most Recent Vital Signs Temp Pulse Resp BP Pulse Ox 36.6 C 71 16 130/82 100 11/14/20 12:07 11/14/20 12:07 11/14/20 12:07 11/14/20 12:07 11/14/20 12:07 Lab Results Blood Type / Crossmatch: No Data to Display Complete Blood Count: No Data to Display Complete Metabolic Panel: No Data to Display Liver Function Panel: No Data to Display Coagulation Panel: No Data to Display Cardiac Panel: No Data to Display Arterial Blood Gas: No Data to Display Venous Blood Gas: No Data to Display Pancreas Panel: No Data to Display Thyroid Panel: No Data to Display Infectious Disease: Coronavirus (COVID-19)(PCR) Negative (Negative) 11/10/20 10:07 11/10/20 Coronavirus 2019 Source Nasal/Nares 11/10/20 10:07 11/10/20 Blood Cultures: No Data to Display Toxicology Panel: No Data to Display Panel: No Data to Display Anesthesia Assessment and Plan Anesthesia History Personal History: PONV Family History: No Family History of Anesthesia Complications Exercise Tolerance Exercise Tolerance: Metabolic Equivalents>4 Pertinent Negatives Pertinent Negatives: No Symptoms of GERD, No Major Cardiovascular Symptoms or Complaints and No Major Pulmonary Symptoms or Complaints Cardiac & Pulmonary Exam Cardiac Exam: Normal S1/S2 Heart Sounds Pulmonary Exam: Clear Bilateral Breath Sounds Airway Exam Known Difficult Airway: No Mallampati Class: 1 Mouth Opening: Normal (> 3cm) Thyromental Distance: Greater than 3 cm Neck Range of Motion: Full ROM Neck Circumference: Thick Teeth Condition: Edentulous ASA Classification ASA Score: ASA 3 Emergency Case?: No NPO Status NPO Status: NPO Clears >2 hours, Solids >8 hours Status Status: Not Per Patient (Menopause) Anesthesia Plan Resuscitation Status: Full Code Anesthesia Technique: MAC Anesthesia Airway Planned: Natural Airway Monitors Used: Standard Monitors
[2020-11-14] MEDS: Lactated Ringers 1,000 ML 80 ML IV (12:46)
[2020-11-14 12:48] VITALS: BMI 43.0
--- NOTE | 2020-11-14 13:03 | PDOC.DSDIS_ITS ---
Discharge Plan Disposition Patient Disposition: HOME Condition: Good Discharge Details Reason For Visit: Excision cyst R wrist Attending Provider: Rickie Vázquez Primary Care Provider: Marquita Cochran New [place] Meds and New Rx's Prescriptions: New hydrocodone-acetaminophen 5-325 mg tablet 1 tab PO Q6H PRN (Reason: pain) Qty: 6 RF: 0 acetaminophen 500 mg capsule 500 mg PO Q4H PRN (Reason: pain) Qty: 30 RF: 0 ibuprofen 600 mg tablet 600 mg PO TID PRN (Reason: pain) Qty: 90 RF: 0 Continued ferrous sulfate 325 mg (65 mg iron) tablet 325 mg PO DAILY RF: 0 lamotrigine 100 mg Tablet 100 mg PO DAILY RF: 0 cholecalciferol (vitamin D3) 25 mcg (1,000 unit) Tablet 25 mcg PO DAILY RF: 0 Rexulti 1 mg Tablet 1 mg PO DIRECTED RF: 0 Narcan 4 mg/actuation [place],Non-Aerosol 4 mg INTRANASAL DIRECTED PRNRF: 0 bupropion HCl [Wellbutrin XL] 300 mg tablet extended release 24 hr 300 mg PO QAM RF: 0 bupropion HCl [Wellbutrin SR] 100 MG tablet extended release 12 hr 150 mg PO HS RF: 0 lamotrigine [Lamictal] 100 MG tablet 150 mg PO DAILY RF: 0 alprazolam [Xanax] 1 MG tablet 1 mg PO HS RF: 0 estradiol 0.5 mg tablet 0.5 mg PO DAILY Qty: 30 RF: 1 medroxyprogesterone [Provera] 2.5 mg tablet 2.5 mg PO DAILY Qty: 30 RF: 1 Discharge Instructions Additional Instructions: Sheela's Discharge Instructions Activity: You should keep the hand elevated as much as possible for the first few days. You may use the other fingers as tolerated but avoid trying to do too much too soon. You may perform light activities with the splint in place. Dressing/Cast: Your splint should be worn at all times except for hygene purposes. Medications: - You should take Tylenol and Ibuprofen for baseline pain control. - You have Hydrocodone for breakthrough pain. - You may apply ice over the thumb. Follow-up: 7-10 days Stand Alone Forms: Anesthesia Discharge Inst. Referrals: Rickie Vázquez MD [ [facility] STAFF PHYSICIAN] - 11/24/20 8:00 am Equipment/Supplies: Brace Remove Dressings/Wound Care:: 48 hours Shower/Bathe:: 48 hours Diet:: As Tolerated Discharge Orders Discharge Orders: Discharge Order (Routine); Ordered 11/14/20 Ordered By: Ronak James DS: Diagnosis Discharge Diagnosis (1) Synovial cyst of right wrist: Status: Acute
[2020-11-14] MEDS: ceFAZolin 3,000 MG in Normal Saline 100 ML 200 MG IVPB (13:31)
[2020-11-14] MEDS: Sodium Bicarbonate 50 MEQ/50 ML VIAL (13:39)
[2020-11-14 14:03] VITALS: BP 114/70; PULSE 74; RESP 16; TEMP 36.2; O2SAT 97
--- NOTE | 2020-11-14 14:03 | W.ANESPOSTOP ---
Postoperative Evaluation Date, Time and Location Date Performed: 11/14/20 Time Performed: 14:03 Patient Location: Day Surgery Unit Vital Signs Most Recent Imported Vital Signs: Most Recent Vital Signs Temp Pulse Resp BP Pulse Ox 36.6 C 71 16 130/82 100 11/14/20 12:07 11/14/20 12:07 11/14/20 12:11/14/20 12:11/14/20 12:07 Most Recent Manually Entered Vital Signs: Adult Blood Pressure: 114/70 Heart Rate: 80 Respirations: 14 Oxygen Saturation (%): 97 Temperature (C): 36.2 C Pain Score (0-10 Scale): 0 Pain Score Most Recent Pain Score: Most Recent Pain Score Pain Level 0 11/14/20 12:07 Assessment Mental Status: Awake (Alert & Oriented to Patient Baseline) Airway and Respiratory Function: Patent airway with normal (patient baseline) respiratory exam Cardiovascular Function: Hemodynamically Stable Hydration Status: Adequately Hydrated Nausea & Vomiting: No Nausea or Vomiting Pain: Pt. Denies Any Pain Peripheral Nerve Block: Patient did not receive a nerve block
[2020-11-14 14:06] VITALS: BP 114/70; PULSE 80; RESP 14; TEMPC 36.2; O2SAT 97
[2020-11-14 14:35] VITALS: BP 119/73; PULSE 79; RESP 16; TEMP 36.5; O2SAT 100
--- NOTE | 2020-11-15 06:36 | W.PM.OP ---
Date of service: 11/14/20 Time of Service: 13:55 Operative Note Operative Note DATE OF PROCEDURE: 11/14/20 PRE-OP DIAGNOSIS: Right volar-radial wrist Ganglion Cyst POST-OP DIAGNOSIS: same PROCEDURE: Excision of wrist ganglion cyst -right wrist SURGEON: Rickie Vázquez ANESTHESIA TYPE: General:No Airway Refer to Anesthesia Record ESTIMATED BLOOD LOSS: 2 PATHOLOGY: none sent TOURNIQUET TIME: 10 COMPLICATIONS: None Patient was transported to: PACU Patient's condition: stable Indications: Emily is a 55-year-old female who I have seen for a wrist ganglion cyst arising from the volar radial aspect of the wrist. It was thought also be possibly in communication with the first extensor compartment. It has continued to be bothersome despite some conservative options. Its size and interference with activities continues to cause problems. Therefore, I offered excision of the volar wrist cyst and possible de Quervain's release. I discussed the risks to include bleeding, infection, pain, stiffness, damage to nerve and vessels, recurrence. Despite these risks, she elects to proceed. Findings: There is a large cyst arising from the radial aspect of the radiocarpal joint. It did abut the first extensor compartment but did not seem to actually involve the first extensor compartment. Procedure Description: Emily was greeted in the preoperative holding area. Identity was confirmed and the correct site was identified and marked. Consent was reviewed the patient and signed. History and physical was updated. The patient to take not to the operating room placed in supine position. All bony prominences were well-padded. A nonsterile tourniquet was placed high up onto the right arm. The arms and prepped with ChloraPrep and draped in a standard fashion. The surgical site was marked on the skin and injected with 1% lidocaine with epinephrine buffered with sodium bicarbonate. The limb was exsanguinated and the tourniquet was inflated to 250 mmHg where it stayed for 10 minutes. The skin was incised sharply just volar to the radial most aspect of the radial styloid, overlying the radial border of the cyst. Deeper dissection was carried out with tenotomy scissors and careful attention to vascular branches in this area. The mass was identified and protected with dissection carried around. Once was fully identified it was deflated and the cyst stalk was followed down to the radial aspect of the radius scaphoid joint. The cyst structure was resected and its origin from the carpus was opened with tenotomy scissors and rongeur. The wound was then thoroughly irrigated. The tourniquet was deflated. There is no major arterial bleeding and any other persistent ooze was cauterized with the bipolar electrocautery. The wound was dry. The deep layer was reapproximated with a 3-0 Vicryl. The skin was closed with a running 4-0 Monocryl followed by skin glue, gauze, and Jatinder wrap. The wrist was placed into a removable wrist brace. At the end the case all counts were correct. The patient was awakened from anesthesia and taken to the PACU in stable condition. There were no noted complications.
== END 2020-11-14 15:05 | disposition home or self-care (01) ==
PROVIDERS: PCP Nurse Practitioner Family; Visit Provider Student in an Organized Health Care Education/Training Program
PROC: (CPT 25000; principal; 2020-11-14 14:00)
DX: M67.431 Ganglion, right wrist (principal); D50.9 Iron deficiency anemia, unspecified; M79.7 Fibromyalgia
CPT/HCPCS: 25111; J0690

== ENCOUNTER → 2020-11-24 07:48 | Outpatient (BNVA) | payer MEDICARE, SELFPAY | PROVIDERS: PCP Nurse Practitioner Family; Referring Provider Nurse Practitioner Family | DX: Z47.89 Encounter for other orthopedic aftercare (principal); M71.331 Other bursal cyst, right wrist; M65.4 Radial styloid tenosynovitis [de Quervain] ==

== ENCOUNTER 2021-01-30 09:46 | Outpatient (CLI) | payer MEDICARE, SELFPAY ==
--- NOTE | 2021-01-30 09:30 | DI.RAD_ITS ---
Exam(s) XR STANDING ALIGNMENT EXAM: XR STANDING ALIGNMENT CLINICAL HISTORY: PRE OP R TKA TECHNIQUE: COMPARISON: No exams were available for comparison FINDINGS: Standing alignment AP views were obtained period there mild degenerative changes of the hip joints bi laterally. There are moderate to severe degenerative changes of the joints of the right knee and mil d degenerative changes of joints of left knee. IMPRESSION: RADIATION DOSE DELIVERED: Total DLP
--- NOTE | 2021-01-30 09:30 | DI.RAD_ITS ---
Exam(s) XR KNEE RT 1V EXAM: XR KNEE RT 1V CLINICAL HISTORY: pre op R TKA TECHNIQUE: COMPARISON: CR XR KNEE RT 3V AP,LAT,MAURICIO from 10/04/2020 FINDINGS: Lateral view of the right knee was obtained. There is a ball marker placed anterior to the knee. There are severe degenerative changes of the patellofemoral joint and also of the tibiofemoral joints as visualized. There may be a small knee joint effusion. IMPRESSION: RADIATION DOSE DELIVERED: Total DLP
== END 2021-01-30 09:47 | disposition home or self-care (01) ==
LOC: DIORS 09:46
PROVIDERS: PCP Nurse Practitioner Family; Referring Provider Nurse Practitioner Family; Visit Provider Physician Assistant
DX: M17.11 Unilateral primary osteoarthritis, right knee (principal); Z01.818 Encounter for other preprocedural examination
CPT/HCPCS: 73560; 77073

== ENCOUNTER 2021-02-05 01:59 | Outpatient (CLI) | payer MEDICARE, SELFPAY ==
[2021-02-05 09:05] LABS: HCT 41.9 % (36.0-46.0); HGB 13.6 g/dL (11.2-15.7); MCH 29.9 pg (27.0-33.0); MCHC 32.5 % (32.0-36.0); MCV 92.1 fL (80-95); MPV 10.7 fL (8.0-11.0); Platelet Count 239 10^3/uL (130-400); RBC 4.55 10^6/uL (3.93-5.22); RDW 12.8 % (11.7-14.6); RDW-SD 43.7 fL; WBC 4.67 10^3/uL (4.4-10.8)
[2021-02-05 10:04] LABS: Anion Gap 8.9 mmol/L (3-11); BUN 15 mg/dL (7-18); CO2 27.1 mmol/L (21.0-32.0); CREATININE 0.9 mg/dL (0.55-1.02); Calcium 8.8 mg/dL (8.5-10.1); Chloride 106 mmol/L (98-107); Glucose 104 mg/dL (74-106); Potassium 3.5 mmol/L (3.5-5.1); Sodium 142 mmol/L (136-145)
== END 2021-02-05 02:00 | disposition home or self-care (01) ==
LOC: LBO 02:00
PROVIDERS: PCP Nurse Practitioner Family; Visit Provider Student in an Organized Health Care Education/Training Program
DX: M17.11 Unilateral primary osteoarthritis, right knee; Z01.818 Encounter for other preprocedural examination
CPT/HCPCS: 36415; 80048; 85027; 87635

== ENCOUNTER 2021-02-05 02:41 | Outpatient (CLI) | payer MEDICARE, SELFPAY ==
[2021-02-05 10:57] LABS: Source Nasal/Nares
[2021-02-05 13:34] LABS: COVID-19 PCR Negative (Negative)
== END 2021-02-05 02:42 | disposition home or self-care (01) ==
LOC: LBO 02:41
PROVIDERS: PCP Nurse Practitioner Family; Visit Provider Student in an Organized Health Care Education/Training Program
DX: Z20.822 Contact with and (suspected) exposure to COVID-19 (principal)
CPT/HCPCS: 87635

== ENCOUNTER 2021-02-06 07:22 | Day surgery (SDC) | payer MEDICARE, SELFPAY ==
[2021-02-06] VITALS (9 sets, daily range): BP systolic 99–142; BP diastolic 54–88; PULSE 64–89; RESP 12–21; TEMP 36.2–36.4; O2SAT 95–98; BMI 43.6
--- NOTE | 2021-02-06 07:57 | W.ANESPRE ---
General Info Date of Service Date Performed: 02/06/21 Height: 5 ft 4.6 in Weight: 117.5 kg Body Mass Index (BMI): 43.6 Surgical Procedure: Operation Date: 02/06/21 10:25 Proposed Procedures Side Surgeon p Knee Total Arthroplasty Right Rickie Vázquez MD Meds Allergies and Home Medications Allergies Allergy/AdvReac Type Severity Reaction Status Date / Time diazepam AdvReac Severe VOMITING Verified 02/06/21 07:47 Penicillins AdvReac Severe Skin Rash Verified 02/06/21 07:47 prochlorperazine AdvReac Severe PANICK Verified 02/06/21 07:47 [Prochlorperazine] ATTACKS zolpidem [Zolpidem] AdvReac Intermediate SLEEP Verified 02/06/21 07:47 WALKING AND TALKING clonazepam [From Klonopin] AdvReac Mild NOT Verified 02/06/21 07:47 EFFECTIVE Home Medication Medication Instructions Recorded bupropion HCl [Wellbutrin SR] 150 mg PO HS tab-cap 04/26/14 lamotrigine [Lamictal] 150 mg PO DAILY tab-cap 04/26/14 alprazolam [Xanax] 1 mg PO HS tab-cap 05/30/14 Narcan 4 mg INTRANASAL DIRECTED PRN 08/31/19 Rexulti 1 mg PO DIRECTED 08/31/19 cholecalciferol (vitamin D3) 25 mcg PO DAILY 08/31/19 lamotrigine 100 mg PO DAILY 08/31/19 ferrous sulfate 325 mg (65 mg 325 mg PO DAILY 09/22/19 iron) tablet bupropion HCl 300 mg 24 hr tablet, 300 mg PO QAM 10/26/20 extended release acetaminophen 500 mg PO Q4H PRN #30 cap 11/14/20 ibuprofen 600 mg PO TID PRN #90 tab 11/14/20 estradiol 1 mg tablet 1 mg PO DAILY #60 tab 11/27/20 medroxyprogesterone 5 mg tablet 5 mg PO DAILY #60 tab 11/27/20 estradiol 0.5 mg tablet 0.5 mg PO DAILY #60 tab 01/25/21 meloxicam 7.5 mg tablet 7.5 mg PO BID tab 01/30/21 Current Visit Medications: Current Medications Generic Name Dose Route Start Last Admin Trade Name Freq PRN Reason Stop Dose Admin Acetaminophen 1,000 mg 02/06/21 06:00 Acetaminophen 500 Mg Tab PO 02/06/21 16:00 PREOP NORMA Acetaminophen 1,000 mg 02/06/21 09:00 Acetaminophen 500 Mg Tab PO TID NORMA Aspirin 81 mg 02/06/21 09:00 Aspirin E.C. 81 Mg Tabec PO BID NORMA Celecoxib 400 mg 02/06/21 06:00 Celecoxib 200 Mg Cap PO 02/06/21 16:00 PREOP NORMA Celecoxib 200 mg 02/06/21 09:00 Celecoxib 200 Mg Cap PO BID NORMA Docusate Sodium 100 mg 02/06/21 07:30 Docusate Sodium 100 Mg Cap PO BID PRN PRN Constipation Gabapentin 300 mg 02/06/21 06:00 Gabapentin 300 Mg Cap PO 02/06/21 16:00 PREOP NORMA Gabapentin 300 mg 02/06/21 22:00 Gabapentin 300 Mg Cap PO HS NORMA Tranexamic Acid 1,000 mg/ 60 mls @ 360 mls/hr 02/06/21 06:00 Sodium Chloride IVPB 02/06/21 16:00 PREOP NORMA Tranexamic Acid 1,000 mg/ 60 mls @ 360 mls/hr 02/06/21 06:00 Sodium Chloride IVPB 02/06/21 16:00 DIRECTED NORMA Cefazolin Sodium/Dextrose 1 gm in 50 mls @ 100 mls/hr 02/06/21 10:00 Ancef Duplex IVPB 02/07/21 02:29 Q8H [facility] Ondansetron HCl 4 mg 02/06/21 07:30 Ondansetron 4 Mg/2 Ml Vial IVP Q6H PRN PRN Nausea Oxycodone HCl 0 mg 02/06/21 07:30 Oxycodone 5 Mg Tab PO Q3H PRN PRN Pain Pantoprazole Sodium 40 mg 02/06/21 08:00 Pantoprazole 40 Mg Tabcr PO DAILY@0730 [facility] Polyethylene Glycol 17 gm 02/06/21 07:30 Polyethylene Glycol 3350 17 Gm Packet PO BID PRN PRN Constipation PFSH Active Problems Active Problems: Problem Status Onset Code Chronic iron deficiency anemia D50.9 Normal colonoscopy Hot flashes R23.2 Weight gain R63.5 Primary osteoarthritis of right knee M17.11 Hormone replacement therapy (HRT) Z79.890 Medical History Active Problem List Chronic iron deficiency anemia (Acute) Normal colonoscopy (Acute) Hot flashes (Acute) Weight gain (Acute) Primary osteoarthritis of right knee (Chronic) Hormone replacement therapy (HRT) (Acute) Medical History Abdominal pain Abnormal findings on diagnostic imaging of other abdominal regions, including retroperitoneum Adhesive capsulitis of left shoulder associated with type 2 diabetes mellitus (04/07/17) chronic headaches Community acquired pneumonia Degenerative disc disease, lumbar Depression Encounter for counseling regarding contraception Fatigue Low back pain Migraine 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 denies this Narcotic abuse Pt. denies this Pain in left shoulder Pernicious anemia Personality disorder Pt. denies this post trauma stress disorder Per pt. requests when waking up for nobody to touch her neck- Preventative health care Primary fibromyalgia syndrome Surgical History Surgical History section twice Cholecystectomy De Quervain's tenosynovitis, right s/p DeQuervain's release DOS: 10/26/2020 Endoscopic Carpal Tunnel release bilateral S/P gastric bypass Synovial cyst of right wrist s/p excision DOS: 11/14/20 Tobacco Smoking/Tobacco Use Status: Never Alcohol Alcohol Intake: current Alcohol intake frequency: holidays/special occasions only Substance Use Substance use: Never Substance use type: does not use Prental History History 6 Para 5 Hx # Term Pregnancies 5 Multiple births Hx # Pregnancies Ectopic pregnancies AB induced Hx Number of Living Children 5 AB spontaneous 1 Vital Signs and Lab Results Vital Signs Most Recent Vital Signs in EMR: Most Recent Vital Signs Temp Pulse Resp BP Pulse Ox 36.3 C L 77 16 142/82 H 98 02/06/21 07:29 02/06/21 07:29 02/06/21 07:29 02/06/21 07:29 02/06/21 07:29 Lab Results Blood Type / Crossmatch: No Data to Display Complete Blood Count: White Blood Count 4.67 10^3/uL (4.4-10.8) 02/05/21 08:47 02/05/21 Red Blood Count 4.55 10^6/uL (3.93-5.22) 02/05/21 08:47 02/05/21 Hemoglobin 13.6 g/dL (11.2-15.7) 02/05/21 08:47 02/05/21 Hematocrit 41.9 % (36.0-46.0) 02/05/21 08:47 02/05/21 Platelet Count 239 10^3/uL (130-400) 02/05/21 08:47 02/05/21 Complete Metabolic Panel: Sodium Level 142 mmol/L (136-145) 02/05/21 08:47 02/05/21 Potassium Level 3.5 mmol/L (3.5-5.1) 02/05/21 08:47 02/05/21 Chloride Level 106 mmol/L (98-107) 02/05/21 08:47 02/05/21 Carbon Dioxide Level 27.1 mmol/L (21.0-32.0) 02/05/21 08:47 02/05/21 Blood Urea Nitrogen 15 mg/dL (7-18) 02/05/21 08:47 02/05/21 Creatinine 0.9 mg/dL (0.55-1.02) 02/05/21 08:47 02/05/21 Estimated GFR/1.73 m2 >= 60.00 (mL/min/1.73m2) 02/05/21 08:47 02/05/21 Calcium Level 8.8 mg/dL (8.5-10.1) 02/05/21 08:47 02/05/21 Glucose Level 104 mg/dL (74-106) 02/05/21 08:47 02/05/21 Liver Function Panel: No Data to Display Coagulation Panel: No Data to Display Cardiac Panel: No Data to Display Arterial Blood Gas: No Data to Display Venous Blood Gas: No Data to Display Pancreas Panel: No Data to Display Thyroid Panel: No Data to Display Infectious Disease: Coronavirus (COVID-19)(PCR) Negative (Negative) 02/05/21 09:20 02/05/21 Coronavirus 2019 Source Nasal/Nares 02/05/21 09:20 02/05/21 Blood Cultures: No Data to Display Toxicology Panel: No Data to Display Panel: No Data to Display Anesthesia Assessment and Plan Anesthesia History Personal History: PONV Family History: No Family History of Anesthesia Complications Exercise Tolerance Exercise Tolerance: Metabolic Equivalents>4 Pertinent Negatives Pertinent Negatives: No Symptoms of GERD, No Major Cardiovascular Symptoms or Complaints, No Major Pulmonary Symptoms or Complaints and No History of CVA/TIA Cardiac & Pulmonary Exam Cardiac Exam: Normal S1/S2 Heart Sounds Pulmonary Exam: Clear Bilateral Breath Sounds Implantable Cardiac Device Does patient have a Pacemaker or an ICD?: No Airway Exam Known Difficult Airway: No Mallampati Class: 1 Mouth Opening: Normal (> 3cm) Thyromental Distance: Greater than 3 cm Neck Range of Motion: Full ROM Neck Circumference: Thick Teeth Condition: Edentulous ASA Classification ASA Score: ASA 3 Emergency Case?: No NPO Status NPO Status: NPO Clears >2 hours, Solids >8 hours Status Status: Not Relevant due to Medical History Anesthesia Plan Resuscitation Status: Full Code Anesthesia Technique: Spinal Anesthesia Airway Planned: Natural Airway Pain Management: Surgeon and patient request nerve block Monitors Used: Standard Monitors Preoperative Comments:: Recent Radiofrequency Ablation of medial branches on patient Dr. Boone on 11/07/2020. Per note: RT L3 L4 L5, LT L3 L4 L5 and lateral branches of bilateral S1.
[2021-02-06] MEDS: Acetaminophen 500 MG TAB 1000 MG PO ×2 (08:05→13:13)
[2021-02-06] MEDS: Celecoxib 200 MG CAP 400 MG PO (08:06)
[2021-02-06] MEDS: Gabapentin 300 MG CAP PO (08:06)
[2021-02-06] MEDS: Lactated Ringers 1,000 ML 80 ML IV (08:50)
[2021-02-06] MEDS: ceFAZolin 3,000 MG in Normal Saline 100 ML 200 MG IVPB (09:39)
--- NOTE | 2021-02-06 10:03 | W.ANESNERVE ---
Nerve Block Single Injection Procedure Date and Time Date Performed: 02/06/21 Procedure Start: 09:06 Location Where Procedure Performed Procedure Location: Day Surgery Unit Reason Performed: Postoperative Analgesia Requesting Provider: Rickie Vázquez Timeout Performed Timeout Performed: Yes Monitoring Used ECG, Blood Pressure and SpO2 Sterility Sterility: Hand Hygiene, Surgical Cap, Surgical Mask, Sterile Gloves and Chlorhexidine Sedation Given During Procedure Sedation Given (Indicate Dose Given): Versed IV Dose:: 2 mg Patient Mental Status Patient Mental Status: Sedate with meaningful communication Nerve Block 1st Nerve Block: Laterality: Right Block Type: Adductor Canal Needle / Catheter Used: 100mm SonoPlex II Local Anesthetic Bolus (Indicate Dose Given): Lidocaine used for local infiltration of skin, Injected in 3-5ml increments after negative blood aspiration and Bupivacaine 0.25% Dose:: 20 ml Additives (Indicate Dose Given): None Ultrasound: Sterile probe cover and gel used Ultrasound Image Saved?: Yes Nerve Stimulator: Not Used Paresthesia: None Procedure Tolerated: No Complications and Patient tolerated well Procedure Outcome: Successful Performed By: Drake Bashir
[2021-02-06] MEDS: Ketorolac 30 MG/ML VIAL (10:29)
[2021-02-06] MEDS: Bupivacaine 0.25% Pres-Free 30 ML VIAL (10:29)
[2021-02-06] MEDS: Normal Saline 20 ML VIAL (10:29)
--- NOTE | 2021-02-06 11:11 | ROE_ITS ---
Date of service: 02/06/21 Time of Service: 11:12 Operative Note Operative Note DATE OF PROCEDURE: 02/06/21 PRE-OP DIAGNOSIS: Right Knee Osteoarthritis POST-OP DIAGNOSIS: same PROCEDURE: Right Total Knee Replacement SURGEON: Rickie Vázquez [employer] FIELD SUPERVISOR: Arie James ANESTHESIA TYPE: Spinal Refer to Anesthesia Record ESTIMATED BLOOD LOSS: 150 PATHOLOGY: none sent TOURNIQUET TIME: 0 COMPLICATIONS: None Patient was transported to: PACU Patient's condition: stable Implants: 1. Depuy Attune Cementless Cruciate Retaining Femoral Component, Size 6 2. Depuy Attune Cementless Rotating Platform Tibial Component, Size 5 3. Depuy Attune 6x5 CR/RP Poly 4. Depuy Attune Patellar Component, Size 35 Indications: I have seen Emily in clinic for symptoms of knee arthritis, confirmed with radiographic findings. She has exhausted nonoperative methods and was having significant limitations in daily function and desired better function and less pain. I discussed the technical details of a knee replacement. I explained the risks of the procedure to include, but not limited to, bleeding, infection, pain, stiffness, fracture, damage to nerves and vessels, damage to muscles and tendons, loosening, need for repeat procedure, blood clot and cardiopulmonary demise. Despite these risks, Emily elected to proceed. Findings: There was significant signs of arthritis throughout the knee. Procedure Description: Emily was greeted in the preoperative holding area where the correct side was identified and marked. The consent was reviewed with the patient and signed. The history and physical was updated. All questions were answered. Preoperative medications were administered: Acetaminophen 1000mg, Celebrex 400mg, and Gabapentin 300mg. An adductor canal block was then administered by the anesthesia team in the PACU. She was taken back to the operating room. A spinal anesthestic was then administered. The patient was placed into the supine position on the operating room table. A nonsterile tourniquet was placed high onto the leg but only used for cementing. Posts were placed for positioning during the procedure. All bony prominences were well padded. Prophylactic antibiotics in the form of Cefazolin were administered. 1g of Tranxemic Acid was given intravenously within 30 minutes of incision. The right leg was then prepped with Chloraprep and draped in a standard fashion with impervious stockinette. A second prep with Chloraprep was performed prior to application of Iodine impregnated skin protection. A timeout to confirm correct identity, side and site, procedure, allergies, anesthesia, and medical concerns was performed. With the knee in some flexion, a midline incision was made overlying the knee. Full thickness skin flaps were raised once the extensor mechanism was encountered. These were raised medially and laterally. Any bleeding was controlled with electrocautery. Once the extensor mechanism was fully exposed, a medial parapatellar arthrotomy was performed in a flexed position. All bleeding from the arthrotomy and the geniculate arteries was coagulated. A medial subperiosteal peel was performed with electrocautery to the midcoronal plane. The fat pad was removed while keeping the patellar tendon protected. The anterior distal femur synovium was removed for later visualization. The ACL and PCL were resected and the anterior horn of the lateral meniscus was transected. The knee was then flexed with the patella everted. Large osteophytes from the tibia were removed. Large osteophytes from the femur were removed. Using a step drill, and based on preoperative templating, the femoral canal was entered. This was done with a step drill without any difficulty. The intramedullary distal femoral cut guide was inserted, set to a 6 degree valgus cut and 9mm cut thickness. The distal femoral cut guide was then held in position and pinned. With the soft tissues protected, the distal cut was performed. This was passed over a few times to ensure a planar cut. I then turned attention to the tibia. The extramedullary guide was placed onto the leg. The distal aspect was slid medial to adjust for position of center of ankle and stay in line with shaft of the tibia. Approximately 3-5 degrees of posterior slope was kept in the proximal cutting guide. The center of the guide was aligned with the PCL. The stylus was used to assess cut thickness. The medial side, most involved side, was set for a 4mm cut, based on preoperative templating. This was then held in position and pinned into place with 2 additional pins and a cross pin for stability. The medial and lateral collateral ligaments were protected and the cut was performed. With this completed, it was assessed and noted to be of appropriate dimensions. The guide was removed. A spacer block was inserted and the knee was brought into extension. The 6mm spacer block provided full extension, without hyperextension and with stability of both the medial and lateral collateral ligaments was assessed. The pins from the femur and the tibia were then removed. The distal femur was then sized. The anterior stylus was placed onto the lateral ridge of the anterior femur. This indicated a size 6 femur. The external rotation of the guide was adjusted to 3 degrees to match the epicondylar axis, perpendicular to Casey?s line. The 4-in-1 cutting guide was the placed. The posterior medial femur cut was evaluated and appeared of good thickness. The spacer block was inserted underneath the cutting guide and stability was confirmed in 90 degrees of flexion. An sol wing was used to confirm appropriate position of the anterior cut to avoid notching. This cutting guide was ensured to be flush on the cut surface and then pinned into place with headed pins. While protecting the soft tissues, quad tendon, and collateral ligaments, the anterior and posterior cuts were performed with a saw. The central two pins were removed and the posterior and anterior chamfers were cut next. The notch-cutting guide was placed. This was pinned to lateralize the femoral component as much as possible while keeping it flush on the cut surface. This was then pinned into position. A reciprocating saw was used to make the notch cut. A rasp smoothed the cut surfaces. The medial and lateral menisci were rem britney. A trial femoral component was then inserted, impacted down to the cut surfaces, and the lug holes were drilled. A provisional trial tibial component was placed and the knee was brought through range of motion. There was noted to be excellent extension and flexion. There was no significant instability. The patella was tracking without thumbs. A size 5mm polyethylene component provided the best range of motion and stability with less than 2mm gapping with medial and lateral stress and full extension without significant hyperextension. The tibial cut surface was fully exposed. The tibia was then sized as a 5. The tibia had been previously marked during trialing to correspond to the center of the tibial component to help with rotation. The trial was aligned to this arie, approximately rotated to the medial 1/3rd of the tibial tubercle. The trial was pinned into place. The tibia was prepared with a reamer and a keel punch and lug holes. The knee was then brought into extension and the patella was measured as 26mm. Using the patellar clamp and cut guide, this was resected to a flat surface with at least 13mm of thickness remaining. The size 35 patella fit the best. This was oriented and then clamped into position. The lugs were drilled. The trial components were removed. The final components were opened on the back table. The periosteal and capsular tissues, especially posteriorly, around the knee were then systematically injected with a periarticular cocktail consisting of 50cc 0.25% Marcaine, 30mg Ketorolac, 20cc of Exparal and 50cc of injectable s negro. The knee was thoroughly irrigated with a pulse lavage and dried. Irrisept was also used to irrigate the tissues. On the back table, with the implants opened, the cement was mixed. One batch of high viscosity cement was prepared with vacuum assistance. After the cement was ready a small amount was placed on the cut surface of the patella and the patellar button was clamped into position and held. While the cement was hardening, the cementless knee components were placed. Starting with the tibial component, the tibia was subluxed anteriorly and the lug holes of the component were lined up. The tibia was then impacted with an impactor and mallet until the tibial component was in contact with the tibia. The final polyethylene component was inserted. Then, the femoral component was inserted. The lug holes were aligned and the component was impacted into position. The knee was irrigated with Irrisept chlorhexadine solution. This was allowed to sit in the knee for 3 minutes. After the cement had finally cured, approximately 15min, the clamp was removed from the patella and the knee was taken through range of motion. The patella was tracking with a no-thumbs technique. The capsule was then reapproximated with a No. 1 Vicryl at multiple locations. The capsule was finally closed with a No. 2 Stratafix, barbed suture. The second dosing of 1g TXA was started. Deep tissues were then reapproximated with 0 Vicryl and 2-0 Vicryl. The skin was closed with a running 3-0 Monocryl in a subcuticular fashion. This was reinforced with skin glue. A Mepilex silver dressing was applied along with a [id number] CHEL wrap. A CryoCuff was applied. Emily was transferred to the hospital bed without difficulty an suffering no apparent complication. She has a good prognosis. Physical therapy will start today and without restrictions, weight-bearing as tolerated. Aspirin 81mg BID will be used for DVT prophylaxis.
--- NOTE | 2021-02-06 11:34 | W.PM.DSUDISC ---
Discharge Plan Disposition Patient Disposition: HOME Condition: Good Discharge Details Reason For Visit: Right TKR Attending Provider: Rickie Vázquez Primary Care Provider: Marquita Cochran Home Meds and New Rx's Prescriptions: New acetaminophen 500 mg tablet 1,000 mg PO TID Qty: 90 RF: 3 aspirin 81 mg tablet,delayed release (DR/EC) 81 mg PO BID Qty: 60 RF: 0 celecoxib 200 mg capsule 200 mg PO BID Qty: 60 RF: 0 pantoprazole 40 mg tablet,delayed release (DR/EC) 40 mg PO DAILY Qty: 30 RF: 0 gabapentin 300 mg capsule 300 mg PO QHS Qty: 14 RF: 0 oxycodone 5 mg tablet 5 mg PO Q4H MDD 6 tabs PRN (Reason: pain) Qty: 20 RF: 0 Continued ferrous sulfate 325 mg (65 mg iron) tablet 325 mg PO DAILY RF: 0 lamotrigine 100 mg Tablet 100 mg PO DAILY RF: 0 cholecalciferol (vitamin D3) 25 mcg (1,000 unit) Tablet 25 mcg PO DAILY RF: 0 Rexulti 1 mg Tablet 1 mg PO DIRECTED RF: 0 Narcan 4 mg/actuation [place],Non-Aerosol 4 mg INTRANASAL DIRECTED PRNRF: 0 bupropion HCl [Wellbutrin XL] 300 mg tablet extended release 24 hr 300 mg PO QAM RF: 0 bupropion HCl [Wellbutrin SR] 100 MG tablet extended release 12 hr 150 mg PO HS RF: 0 lamotrigine [Lamictal] 100 MG tablet 150 mg PO DAILY RF: 0 alprazolam [Xanax] 1 MG tablet 1 mg PO HS RF: 0 estradiol 1 mg tablet 1 mg PO DAILY Qty: 60 RF: 1 medroxyprogesterone [Provera] 5 mg tablet 5 mg PO DAILY Qty: 60 RF: 1 estradiol 0.5 mg tablet 0.5 mg PO DAILY Qty: 60 RF: 3 Discontinued meloxicam 7.5 mg tablet 7.5 mg PO BID RF: 0 acetaminophen 500 mg capsule 500 mg PO Q4H PRN (Reason: pain) Qty: 30 RF: 0 ibuprofen 600 mg tablet 600 mg PO TID PRN (Reason: pain) Qty: 90 RF: 0 Discharge Instructions Additional Instructions: Total Knee Discharge Instructions Activity: The most important activity is to walk. You should try to take short walks a few times a day. It is important that when resting you work on keeping the knee straight. Avoid putting a pillow behind the knee as this will encourage flexion. Work on range of motion exercises as provided by Physical Therapy. If you have the [employer] bike coming, this will be your primary tool for exercise after the knee replacement. You should use it and follow the directions for the knee. Utilize the other exercises sparingly based on your symptoms. - Start outpatient physical therapy within 2 weeks. - You should wear the TUAN hose on both legs for 2 weeks. You may remove these at night. You may also use any compression sock in place of the TUAN hose. - Utilize [employer] to review exercises, see videos on exercises and obtain basic information pertaining to your surgery and your recovery. Dressing: Remove the Jatinder wrap by 2 days after your surgery and put on the TUAN stocking given to you from the hospital. Keep the surgical dressing (underneath the JATINDER wrap) in place for at least one week. After the first week it may be removed and replaced with light gauze and tape or nothing. The wound and dressing may get wet after 3 days but avoid soaking the dressing or otherwise it will need to be changed. Many people prefer covering the dressing with cling wrap (saran wrap) to minimize it from getting soaked. If it gets wet, just pat dry. If it starts to peel off then it will need to be changed. Medications: - You should take Tylenol and anti-inflammatory Celebrex as your primary pain control medications. If the Celebrex is too expensive or not covered, please call the office for another alternative (Advil/Ibuprofen or Naproxen/Aleve) - You have been prescribed a stronger pain medication Oxycodone for breakthrough pain, take as needed as prescribed. - You have also been prescribed a stomach acid reduction agent Pantoprozole to help reduce stomach acid and reflux. - You have been prescribed Gabapentin to take at night for restlessness and nerve pain. - You will be taking Aspirin 81mg twice a day for DVT prevention unless instructed otherwise. - If you have constipation you should take Colace or Miralax (both [id number]). It takes most people 3-4 days to have a bowel movement. Follow-up: 2 weeks If you have any acute concerns or questions, please do not hesitate to contact the office at [phone]. You may contact Dr. Vázquez with any questions after hours through the hospital at [phone] or on his cell phone at [phone]. Referrals: Rickie Vázquez MD [ [facility] STAFF PHYSICIAN] - Equipment/Supplies: Walker Activity:: Activity as Tolerated Shower/Bathe:: 72 hours Diet:: As Tolerated DS: Diagnosis Discharge Diagnosis (1) Primary osteoarthritis of right knee: Status: Chronic (2) History of total right knee replacement (TKR): Status: Acute
[2021-02-06] MEDS: oxyCODONE 5 MG TAB PO ×2 (12:32→13:13)
--- NOTE | 2021-02-06 13:15 | IN_ITS ---
Date of service: 02/06/21 Time of Service: 13:15 PT Notes Visit Reasons: Right TKR Physical Therapy Day Surgery Initial Evaluation Date: 02/06/2021 Referring Doctor: GABY Alfred PT Orders: PT CONSULT: Status post Ortho surgery Precautions: WBAT on right LE with AD. Patient Profile/Admitting Diagnosis: Prerna is a 55-year-old female female with degenerative joint disease of the right knee status post total knee arthroplasty on postoperative day 0. Active Problem List (Updated 01/29/21 @ 19:16 by Gracia Leos) Normal colonoscopy (Acute) Hot flashes (Acute) Weight gain (Acute) Primary osteoarthritis of right knee (Chronic) Hormone replacement therapy (HRT) (Acute) Chronic iron deficiency anemia (Acute) PMHX: Medical History (Updated 01/29/21 @ 19:16 by Gracia Leos) Abdominal pain Abnormal findings on diagnostic imaging of other abdominal regions, including retroperitoneum Adhesive capsulitis of left shoulder associated with type 2 diabetes mellitus (04/07/17) chronic headaches Community acquired pneumonia Degenerative disc disease, lumbar Depression Encounter for counseling regarding contraception Fatigue Low back pain Migraine Mood disorder 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 denies this Pain in left shoulder Pernicious anemia Personality disorder Pt. denies this post trauma stress disorder Per pt. requests when waking up for nobody to touch her neck- Preventative health care Primary fibromyalgia syndrome Surgical History (Updated 01/30/21 @ 09:07 by Gracia Leos) section twice Cholecystectomy De Quervain's tenosynovitis, right s/p DeQuervain's release DOS: 10/26/2020 Endoscopic Carpal Tunnel release bilateral S/P gastric bypass Synovial cyst of right wrist s/p excision DOS: 11/14/20 Social History/Home Situation: Lives with in a private home with 2 steps to enter without rails. Has had no falls in the past year. Independent with all mobility ADL performance with occasional use of a single-point cane when she was in pain. Equipment Owned/DME: Single-point cane, FWW Subjective: Agreeable to PT consult. Reports pain in the back of his right knee with after ambulation activity. Happy with how much she is able to move after surgery. Objective: General Observation: Seated on bedside recliner. CHEL wraps to right LE. Mental Status: Alert and oriented x4 Pain: 4/10 pain at rest. 3/10 pain with movement mostly concentrated in the back of her right knee. ROM: Right Lower Extremity: Hip flexion WFL. Hip abduction WFL. Knee flexion 10 degrees to 90 degrees actively. Knee extension -10 degrees. Ankle dorsiflexion WFL. Ankle plantarflexion WFL. Left Lower Extremity: Hip flexion WFL. Hip abduction WFL. Knee flexion WFL. Ankle dorsiflexion WFL. Ankle plantarflexion WFL. Strength: Right Lower Extremity: Hip flexors 4/5. Hip abductors 4/5. Knee flexors 3-/5. Knee extensors 3-/5. Ankle dorsiflexors 5/5. Ankle plantarflexors 5/5. Left Lower Extremity:Hip flexors 5/5. Hip abductors 5/5. Knee flexors 5/5. Knee extensors 5/5. Ankle dorsiflexors 5/5. Ankle plantarflexors 5/5. Sensation: Intact as to pain and light pressure in bilateral lower extremities. No report of numbness nor tingling in BLE. Bed Mobility/Transfers: Sit to stand contact-guard assist Stand to sit standby assist Bed to chair standby assist Gait: Instructed patient with level surface ambulation of 150 feet using front wheel walker with step through gait pattern and minimal verbal cueing to increase flexion in the right knee. Standby assist provided. Denies headache, chest pain, and dizziness throughout session. Did report of pain in the back of the knee at 3/10. No LOB. No SOB. Stairs: Negotiated 6 x 4-inch steps and 4 x 6-inch steps while holding onto 1 rail with 1 hand and 20 pain on the other hand with step to gait pattern requiring only standby assist with report of increased discomfort in her right complete shoulder area after activity. Balance: Static Sitting: Normal Dynamic Sitting: Normal Static Standing: Fair Dynamic Standing: Fair Special Tests: Mobility Limitations Standardized Measure [facility] 6 clicks Basic Mobility Inpatient Short Form: Raw Score: 20 to 21% deficit CMS Score: Informed Consent/Education: Patient instructed in purpose of PT consult. Packet containing TKA exercise protocol has been given to patient. Education and training on initial set of exercises that can be done at home have been completed with patient. Assessment: Power requires the use of a front wheel walker to maximize independence and reduce fall risk at home. Had 3/10 discomfort in the back of her right knee after activity that resolved with rest. Patient presents with clinical signs and symptoms consistent with current/admitting diagnoses that have resulted to mobility limitations and gait instability as demonstrated by the following impairment level findings: 1. Decreased strength to right knee major muscle groups 2. Impaired standing balance 3. Limitation of joint range of motion in right knee Impairments are contributing to the following functional limitations: 1. Inability to safely ambulate without assistive device 2. Increase completion time for mobility ADL performance 3. Increased fall risk Patient is assessed as a 84847 moderate complexity based on the following: History: 55-year-old female with impairment level findings, functional limitations, and past medical history as indicated above Examination: Demonstrable impairment in strength, balance, and mobility level with underlying impairments and functional limitations as documented above Presentation: Evolving Decision Makin moderate complexity Goals: N/A. PT evaluation and 1-2 treatment sessions only for functional mobility training using recommended AD and for HEP instruction. Plan of Care/Treatment Plan: N/A. PT evaluation and 1-2 treatment session only for functional mobility training using recommended AD and for HEP instruction. DISCHARGE RECOMMENDATIONS: [] Home with no services [] [X] Home with services. Home when medically cleared by surgeon. Will benefit from PT services in order to facilitate return to premorbid independent level using no assistive devices. [] Home with outpatient PT [] [] SNF for continued rehabilitation [] [] [facility] [] [] SNF versus LTC based on ability to participate and progress [] TREATMENT CODE/TIME: 9716 2 x 20 minutes, 9753 0 x 35 minutes beginning at 13:15 PM. Thank you for the opportunity to participate in the care of this patient. Sheryl Romo PT, DPT, CLT [facility] [place], [place]
--- NOTE | 2021-02-06 13:19 | W.ANESPOSTOP ---
Postoperative Evaluation Date, Time and Location Date Performed: 02/06/21 Time Performed: 13:19 Patient Location: Day Surgery Unit Vital Signs Most Recent Imported Vital Signs: Most Recent Vital Signs Temp Pulse Resp BP Pulse Ox 36.4 C L 67 18 114/73 97 02/06/21 12:14 02/06/21 12:14 02/06/21 12:14 02/06/21 12:14 02/06/21 12:14 Pain Score Most Recent Pain Score: Most Recent Pain Score Pain Level 5 02/06/21 12:14 Assessment Mental Status: Awake (Alert & Oriented to Patient Baseline) Airway and Respiratory Function: Patent airway with normal (patient baseline) respiratory exam Cardiovascular Function: Hemodynamically Stable Hydration Status: Adequately Hydrated Nausea & Vomiting: No Nausea or Vomiting Pain: Pt. Denies Any Pain Peripheral Nerve Block: Regional nerve block not resolved at time of post operative discharge
== END 2021-02-06 14:47 | disposition home or self-care (01) ==
PROVIDERS: PCP Nurse Practitioner Family; Visit Provider Student in an Organized Health Care Education/Training Program
PROC: (CPT 27447; principal; 2021-02-06 10:15)
DX: M17.11 Unilateral primary osteoarthritis, right knee (principal)
CPT/HCPCS: 27447; C1776; 97162; 97530; J0690; J1100; J1885; J2250; J2405

== ENCOUNTER 2021-02-19 10:13 | Outpatient (CLI) | payer MEDICARE, SELFPAY ==
--- NOTE | 2021-02-19 09:45 | DI.RAD_ITS ---
Exam(s) XR KNEE RT 1V EXAM: XR KNEE RT 1V CLINICAL HISTORY: 1ST POST OP R TKA. TECHNIQUE: 2D digital imaging was performed. COMPARISON: CR XR KNEE RT 1V from 01/30/2021 FINDINGS: This lateral view there appears to be normal position alignment of the components of recently placed prosthesis. No fracture or loosening evident on this view. IMPRESSION: DATA REPOSITORY: RADIATION DOSE DELIVERED:
--- NOTE | 2021-02-19 09:45 | DI.RAD_ITS ---
Exam(s) XR STANDING ALIGNMENT EXAM: XR STANDING ALIGNMENT CLINICAL HISTORY: 1ST POST OP R TKA. TECHNIQUE: 2D digital imaging was performed. COMPARISON: CR XR STANDING ALIGNMENT from 01/30/2021 FINDINGS: Compared to 01/30/2021 there has been interval placement of a right knee prosthesis. No obvious loos ening. Left knee exhibits only minimal degenerative changes. Hips appear unremarkable. Ankles unre markable. No osseous lesions IMPRESSION: DATA REPOSITORY: RADIATION DOSE DELIVERED:
== END 2021-02-19 10:14 | disposition home or self-care (01) ==
LOC: DIORS 10:13
PROVIDERS: PCP Nurse Practitioner Family; Referring Provider Nurse Practitioner Family; Visit Provider Student in an Organized Health Care Education/Training Program
DX: Z96.651 Presence of right artificial knee joint (principal); Z47.1 Aftercare following joint replacement surgery
CPT/HCPCS: 73560; 77073

== ENCOUNTER → 2021-03-26 13:11 | Outpatient (BNVA) | payer MEDICARE, SELFPAY | PROVIDERS: PCP Nurse Practitioner Family; Referring Provider Nurse Practitioner Family | DX: Z47.1 Aftercare following joint replacement surgery (principal); Z96.651 Presence of right artificial knee joint ==

== ENCOUNTER 2021-04-11 01:05 | Outpatient (CLI) | payer MEDICARE, SELFPAY ==
--- NOTE | 2021-04-11 07:30 | DI.MAMMO_ITS ---
Exam(s) MAMMO SCREENING EXAM: MAMMO SCREENING CLINICAL HISTORY: screening,Z12.39 TECHNIQUE: Mammograms were interpreted according to the usual protocol including computer analysis w [employer] CAD system, tomosynthesis and C-view imaging. COMPARISON: 2017 through 2019. FINDINGS: The breasts are composed of heterogeneously dense fibroglandular densities, Breast Density category C . No suspicious masses or suspicious microcalcifications are seen. No skin thickening or abnormal axillary lymph nodes are seen. There has been no significant change from prior exams. IMPRESSION: BI-RADS Category 1, Negative mammogram. Yearly screening mammography is recommended. Breast Density Category C, heterogeneously Dense. The mammogram demonstrates the patient's breast tissue is dense. Dense breast tissue is very common a nd is not abnormal but dense breast tissue can make it harder to find cancer on a mammogram. Also, de nse breast tissue may increase breast cancer risk. This information about the result of the mammogram report was provided to the patient to raise their awareness. Use this report when you speak with the patient about their risks for breast cancer, which includes their family history. At that time, you may recommend additional screening tests (Ultrasound or MRI) as they might be useful based on their r isk. A negative radiographic report should not delay biopsy if a dominant or clinically suspicious mass is present. Up to ten percent of cancers are not identified on mammography. A negative report may reinforce clinical impression. Adenosis and dense breasts may obscure an underlying neoplasm. False positive reports average 6 to 10%.
== END 2021-04-11 01:25 ==
PROVIDERS: PCP Nurse Practitioner Family; Visit Provider Obstetrics & Gynecology Gynecology
DX: Z12.31 Encounter for screening mammogram for malignant neoplasm of breast (principal); R92.8 Other abnormal and inconclusive findings on diagnostic imaging of breast
CPT/HCPCS: 77063; 77067

== ENCOUNTER → 2021-04-23 14:10 | Outpatient (BNVA) | payer MEDICARE, SELFPAY | PROVIDERS: PCP Nurse Practitioner Family; Referring Provider Nurse Practitioner Family; Visit Provider Student in an Organized Health Care Education/Training Program | DX: M75.01 Adhesive capsulitis of right shoulder (principal); Z96.651 Presence of right artificial knee joint | CPT/HCPCS: 20610; 99213; J1040 ==

== ENCOUNTER 2021-04-25 02:18 | Outpatient (CLI) | payer MEDICARE, SELFPAY ==
[2021-04-25 21:16] LABS: COVID-19 PCR Negative (Negative)
[2021-04-25 23:21] LABS: Source Nasal/Nares
== END 2021-04-25 02:19 | disposition home or self-care (01) ==
LOC: LBO 02:18
PROVIDERS: PCP Nurse Practitioner Family; Visit Provider Student in an Organized Health Care Education/Training Program
DX: Z20.822 Contact with and (suspected) exposure to COVID-19 (principal)
CPT/HCPCS: 87635; U0005

== ENCOUNTER 2021-04-27 11:08 | Day surgery (SDC) | payer MEDICARE, SELFPAY ==
[2021-04-27 11:18] VITALS: BP 140/98; PULSE 68; RESP 18; TEMP 36.4; O2SAT 98
[2021-04-27] MEDS: Lactated Ringers 1,000 ML 80 ML IV (11:56)
--- NOTE | 2021-04-27 12:02 | PDOC.DSDIS_ITS ---
Discharge Plan Disposition Patient Disposition: HOME Condition: Good Discharge Details Reason For Visit: Right TKA Arthrofibrosis Attending Provider: Rickie Vázquez Primary Care Provider: Marquita Cochran Home Meds and New Rx's Prescriptions: New celecoxib 200 mg capsule 200 mg PO BID PRN (Reason: pain) Qty: 60 1RF oxycodone 5 mg tablet 5 mg PO Q8H PRN PRNQty: 10 0RF Continued ferrous sulfate 325 mg (65 mg iron) tablet 325 mg PO DAILY 0RF lamotrigine 100 mg Tablet 100 mg PO DAILY 0RF Rx Instructions: at hs cholecalciferol (vitamin D3) 25 mcg (1,000 unit) Tablet 25 mcg PO DAILY 0RF Rexulti 1 mg Tablet 1 mg PO DIRECTED 0RF Rx Instructions: 1 at HS naloxone [Narcan] 4 mg/actuation [place],Non-Aerosol 4 mg INTRANASAL DIRECTED PRN0RF bupropion HCl [Wellbutrin XL] 300 mg tablet extended release 24 hr 300 mg PO QAM 0RF bupropion HCl [Wellbutrin SR] 100 MG tablet extended release 12 hr 150 mg PO HS 0RF lamotrigine [Lamictal] 100 MG tablet 150 mg PO DAILY 0RF Label Comments: PT TAKES 150 MG AM AND 100 MG HS alprazolam [Xanax] 1 MG tablet 1 mg PO HS 0RF medroxyprogesterone [Provera] 5 mg tablet 5 mg PO DAILY Qty: 60 3RF estradiol 0.5 mg tablet 0.5 mg PO DAILY Qty: 60 3RF Rx Instructions: take 0.5mg in addition to 1mg dose daily. estradiol 1 mg tablet 1 mg PO DAILY Qty: 60 1RF Rx Instructions: take daily. acetaminophen 500 mg tablet 1,000 mg PO TID Qty: 90 3RF Discharge Instructions Additional Instructions: Knee Manipulation Discharge Instructions Activity: You should begin moving as soon as possible. You may work on flexion but also equally maintain extension. You may bear weight as tolerated, using crutches/walker only for support/comfort. You should apply ice to help with swelling and elevate when possible (especially in the first few days). Dressings: Remove bandaid tomorrow. Medications: - Rarely does this require any stronger pain medications, but Oxycodone was called in just in case. - Recommend to take up to 1000mg of Acetaminophen (Tylenol) and 200mg Celebrex as needed. Follow-up: 7-10 days Referrals: Rickie Vázquez MD [ [facility] STAFF PHYSICIAN] - Remove Dressings/Wound Care:: 24 hours Diet:: As Tolerated Discharge Orders Discharge Orders: Discharge Order (Routine); Ordered 04/27/21 Ordered By: Rickie Vázquez
[2021-04-27] MEDS: Celecoxib 200 MG CAP 400 MG PO (12:07)
[2021-04-27] MEDS: Gabapentin 300 MG CAP PO (12:08)
[2021-04-27] MEDS: Acetaminophen 500 MG TAB 1000 MG PO (12:08)
--- NOTE | 2021-04-27 12:08 | W.PREOPHP ---
Assessment and Plan Assessment and plan (1) Fibrosis of right knee joint: Status: Acute Assessment and plan: Emily is a 56yo female s/p right TKA. SHe has arthrofibrosis and to help improve her ROM I recommended a manipulation under anesthesia of the right knee. I have previously discussed this with her in clinic. I reviewed the risks of the procedure to include continued stiffness, pain, hemarthrosis, fracture, and blood clot. Despite these risks, she elects to proceed. I reviewed the importance of diligent work of ROM afterwards. She will need to be persistent with the exercise to improve her ROM. All of her questions were answered. She will proceed with right knee manipulation under anesthesia. History of Present Illness Narrative: Emily is a 56yo female who is s/p right TKA. She has done well but ocntinues to have some stiffness despite diligent physical therapy. Given her limitations and the pain at the end points of this ROM, I offered a manipulation under anesthesia for the right knee. Please see previous office notes but she has 5-95 degrees of flexion with pain at the endpoints. Review of Systems All systems reviewed & are unremarkable except as noted in HPI and below PFSH All Active Problems Fibrosis of right knee joint (Acute) Adhesive capsulitis of right shoulder (Acute) History of total right knee replacement (TKR) (Acute 02/06/21) Chronic iron deficiency anemia (Acute) Normal colonoscopy (Acute) Hot flashes (Acute) Weight gain (Acute) 40lbs in [id number]. Hormone replacement therapy (HRT) (Acute) 10/2020. 0.5mg/2.5mg. 12/2020. 1mg/5mg 01/25/21. 1.5/5mg. Medical History Abdominal pain Abnormal findings on diagnostic imaging of other abdominal regions, including retroperitoneum Adhesive capsulitis of left shoulder associated with type 2 diabetes mellitus (04/07/17) chronic headaches Community acquired pneumonia Degenerative disc disease, lumbar Depression Encounter for counseling regarding contraception Fatigue Low back pain Migraine 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 denies this Narcotic abuse Pt. denies this Pain in left shoulder Pernicious anemia Personality disorder Pt. denies this post trauma stress disorder Per pt. requests when waking up for nobody to touch her neck- Preventative health care Primary fibromyalgia syndrome Surgical History section twice Cholecystectomy De Quervain's tenosynovitis, right s/p DeQuervain's release DOS: 10/26/2020 Endoscopic Carpal Tunnel release bilateral S/P gastric bypass Synovial cyst of right wrist s/p excision DOS: 11/14/20 Family History Mother No problems noted. Father Alzheimer's disease Other Cancer Social History Smoking/Tobacco Use Status: Never Smoking risk assessment performed?: Yes Alcohol Intake: current Alcohol Intake frequency: holidays/special occasions only Alcohol type: hard liquor Drug use: Never Substance use type: does not use Household members: spouse, children and other Details: H-Kyree, S-Elijah 13yo, Victor Hugo-Montse 15yo. 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 Graduated [employer]. 2 bachelors, high honors. 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 amenorrhea after Mirena IUD removed. ) History History 6 Para 5 Hx # Term Pregnancies 5 Multiple births Hx # Pregnancies Ectopic pregnancies AB induced Hx Number of Living Children 5 AB spontaneous 1 Meds Allergies and Home Medications Allergies Allergy/AdvReac Type Severity Reaction Status Date / Time diazepam AdvReac Severe VOMITING Verified 04/27/21 11:43 Penicillins AdvReac Severe Skin Rash Verified 04/27/21 11:43 prochlorperazine AdvReac Severe PANICK Verified 04/27/21 11:43 [Prochlorperazine] ATTACKS zolpidem [Zolpidem] AdvReac Intermediate SLEEP Verified 04/27/21 11:43 WALKING AND TALKING clonazepam [From Klonopin] AdvReac Mild NOT Verified 04/27/21 11:43 EFFECTIVE Home Medications Medication Instructions Recorded Confirmed Type bupropion HCl 100 mg tablet,12 hr 150 mg PO HS tab-cap 04/26/14 04/27/21 History sustained-release (Wellbutrin SR) lamotrigine 100 mg tablet 150 mg PO DAILY tab-cap 04/26/14 04/27/21 History (Lamictal) alprazolam 1 mg tablet (Xanax) 1 mg PO HS tab-cap 05/30/14 04/27/21 History brexpiprazole 1 mg tablet (Rexulti) 1 mg PO DIRECTED 08/31/19 04/27/21 History cholecalciferol (vitamin D3) 25 25 mcg PO DAILY 08/31/19 04/27/21 History mcg (1,000 unit) tablet lamotrigine 100 mg tablet 100 mg PO DAILY 08/31/19 04/27/21 History naloxone 4 mg/actuation nasal 4 mg INTRANASAL DIRECTED PRN 08/31/19 04/27/21 History spray (Narcan) ferrous sulfate 325 mg (65 mg 325 mg PO DAILY 09/22/19 04/27/21 History iron) tablet bupropion HCl 300 mg 24 hr tablet, 300 mg PO QAM 10/26/20 04/27/21 History extended release (Wellbutrin XL) acetaminophen 500 mg tablet 1,000 mg PO TID #90 tab 02/06/21 04/27/21 Rx estradiol 0.5 mg tablet 0.5 mg PO DAILY #60 tab 03/23/21 04/27/21 Rx medroxyprogesterone 5 mg tablet 5 mg PO DAILY #60 tab 03/23/21 04/27/21 Rx (Provera) estradiol 1 mg tablet 1 mg PO DAILY #60 tab 03/30/21 04/27/21 Rx celecoxib 200 mg capsule 200 mg PO BID PRN #60 cap 04/27/21 Rx oxycodone 5 mg tablet 5 mg PO Q8H PRN PRN #10 tab 04/27/21 Rx Exam Resp Effort & Inspection: normal respiratory effort Auscultation: clear to auscultation bilaterally Cardio Rate: regular rate Rhythm: regular rhythm Results Last Vital Signs Temp 36.4 C L 04/27/21 11:18 Pulse 68 04/27/21 11:18 Resp 18 04/27/21 11:18 BP 140/98 H 04/27/21 11:18 Pulse Ox 98 04/27/21 11:18
--- NOTE | 2021-04-27 12:38 | W.ANESPRE ---
General Info Date of Service Date Performed: 04/27/21 Height: 5 ft 4.5 in Weight: 114.8 kg Body Mass Index (BMI): 42.7 Surgical Procedure: Operation Date: 04/27/21 13:55 Proposed Procedure Side Surgeon p Knee Manipulation of Knee Right Rickie Vázquez MD Meds Allergies and Home Medications Allergies Allergy/AdvReac Type Severity Reaction Status Date / Time diazepam AdvReac Severe VOMITING Verified 04/27/21 11:43 Penicillins AdvReac Severe Skin Rash Verified 04/27/21 11:43 prochlorperazine AdvReac Severe PANICK Verified 04/27/21 11:43 [Prochlorperazine] ATTACKS zolpidem [Zolpidem] AdvReac Intermediate SLEEP Verified 04/27/21 11:43 WALKING AND TALKING clonazepam [From Klonopin] AdvReac Mild NOT Verified 04/27/21 11:43 EFFECTIVE Home Medication Medication Instructions Recorded bupropion HCl 100 mg tablet,12 hr 150 mg PO HS tab-cap 04/26/14 sustained-release (Wellbutrin SR) lamotrigine 100 mg tablet 150 mg PO DAILY tab-cap 04/26/14 (Lamictal) alprazolam 1 mg tablet (Xanax) 1 mg PO HS tab-cap 05/30/14 brexpiprazole 1 mg tablet (Rexulti) 1 mg PO DIRECTED 08/31/19 cholecalciferol (vitamin D3) 25 25 mcg PO DAILY 08/31/19 mcg (1,000 unit) tablet lamotrigine 100 mg tablet 100 mg PO DAILY 08/31/19 naloxone 4 mg/actuation nasal 4 mg INTRANASAL DIRECTED PRN 08/31/19 spray (Narcan) ferrous sulfate 325 mg (65 mg 325 mg PO DAILY 09/22/19 iron) tablet bupropion HCl 300 mg 24 hr tablet, 300 mg PO QAM 10/26/20 extended release (Wellbutrin XL) acetaminophen 500 mg tablet 1,000 mg PO TID #90 tab 02/06/21 estradiol 0.5 mg tablet 0.5 mg PO DAILY #60 tab 03/23/21 medroxyprogesterone 5 mg tablet 5 mg PO DAILY #60 tab 03/23/21 (Provera) estradiol 1 mg tablet 1 mg PO DAILY #60 tab 03/30/21 celecoxib 200 mg capsule 200 mg PO BID PRN #60 cap 04/27/21 oxycodone 5 mg tablet 5 mg PO Q8H PRN PRN #10 tab 04/27/21 Current Visit Medications: Current Medications Generic Name Dose Route Start Last Admin Trade Name Freq PRN Reason Stop Dose Admin Acetaminophen 1,000 mg 04/27/21 06:00 04/27/21 12:08 Acetaminophen 500 Mg Tab PO 04/27/21 16:00 1,000 mg PREOP NORMA Administration Celecoxib 400 mg 04/27/21 06:00 04/27/21 12:07 Celecoxib 200 Mg Cap PO 04/27/21 16:00 200 mg PREOP NORMA Administration Gabapentin 300 mg 04/27/21 06:00 04/27/21 12:08 Gabapentin 300 Mg Cap PO 04/27/21 16:00 300 mg PREOP NORMA Administration Ringer's Solution 1,000 mls @ 80 mls/hr 04/27/21 06:00 04/27/21 11:56 IV 05/26/21 23:59 80 mls/hr INFUSION NORMA Administration Cefazolin Sodium 3,000 mg/ 100 mls @ 200 mls/hr 04/27/21 06:00 Sodium Chloride IVPB 04/27/21 16:00 PREOP NORMA Ondansetron HCl 4 mg/ Sodium 52 mls @ 200 mls/hr 04/27/21 11:56 Chloride IVPB Q6H PRN PRN IV Miscellaneous Supplies 1 each 04/27/21 06:00 Iv Access IV 05/26/21 23:59 DIRECTED NORMA Oxycodone HCl 5 mg 04/27/21 11:56 Oxycodone 5 Mg Tab PO Q3H PRN PRN Pain Sodium Chloride 0 ml 04/27/21 06:00 Normal Saline Flush 10 Ml Syr IV 05/26/21 23:59 PRN PRN Sodium Chloride 0 ml 04/27/21 06:00 Normal Saline 10 Ml Vial IJ 05/26/21 23:59 DIRECTED PRN Sterile Water 0 ml 04/27/21 06:00 Water,Injection,Sterile 10 Ml Vial IJ 05/26/21 23:59 DIRECTED PRN PFSH Active Problems Active Problems: Problem Status Onset Code Fibrosis of right knee joint M24.661 Adhesive capsulitis of right shoulder M75.01 History of total right knee replacement (TKR) 02/06/21 Z96.651 Chronic iron deficiency anemia D50.9 Normal colonoscopy Hot flashes R23.2 Weight gain R63.5 Hormone replacement therapy (HRT) Z79.890 Medical History Medical History Abdominal pain Abnormal findings on diagnostic imaging of other abdominal regions, including retroperitoneum Adhesive capsulitis of left shoulder associated with type 2 diabetes mellitus (04/07/17) chronic headaches Community acquired pneumonia Degenerative disc disease, lumbar Depression Encounter for counseling regarding contraception Fatigue Low back pain Migraine 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 denies this Narcotic abuse Pt. denies this Pain in left shoulder Pernicious anemia Personality disorder Pt. denies this post trauma stress disorder Per pt. requests when waking up for nobody to touch her neck- Preventative health care Primary fibromyalgia syndrome Medical History Comments:: Metal in R knee. Pt. reports nausea/vomiting post -anaesthesia after previous surgeries. N/V avoided if pt. is sitting rather than lying at recovery. Pt reports suffering from PTSD and requests Do not touch my neck when waking up from Anesthesia. Surgical History Surgical History section twice Cholecystectomy De Quervain's tenosynovitis, right s/p DeQuervain's release DOS: 10/26/2020 Endoscopic Carpal Tunnel release bilateral S/P gastric bypass Synovial cyst of right wrist s/p excision DOS: 11/14/20 Tobacco Smoking/Tobacco Use Status: Never Alcohol Alcohol Intake: current Alcohol intake frequency: holidays/special occasions only Alcohol type: hard liquor Substance Use Substance use: Never Substance use type: does not use Prental History History 6 Para 5 Hx # Term Pregnancies 5 Multiple births Hx # Pregnancies Ectopic pregnancies AB induced Hx Number of Living Children 5 AB spontaneous 1 Vital Signs and Lab Results Vital Signs Most Recent Vital Signs in EMR: Most Recent Vital Signs Temp Pulse Resp BP Pulse Ox 36.4 C L 68 18 140/98 H 98 04/27/21 11:18 04/27/21 11:18 04/27/21 11:18 04/27/21 11:18 04/27/21 11:18 Lab Results Blood Type / Crossmatch: No Data to Display Complete Blood Count: No Data to Display Complete Metabolic Panel: No Data to Display Liver Function Panel: No Data to Display Coagulation Panel: No Data to Display Cardiac Panel: No Data to Display Arterial Blood Gas: No Data to Display Venous Blood Gas: No Data to Display Pancreas Panel: No Data to Display Thyroid Panel: No Data to Display Infectious Disease: Coronavirus (COVID-19)(PCR) Negative (Negative) 04/25/21 09:48 04/25/21 Coronavirus 2019 Source Nasal/Nares 04/25/21 09:48 04/25/21 Blood Cultures: No Data to Display Toxicology Panel: No Data to Display Panel: No Data to Display Anesthesia Assessment and Plan Anesthesia History Personal History: PONV Family History: No Family History of Anesthesia Complications and Malignant Hyperthermia Exercise Tolerance Exercise Tolerance: Metabolic Equivalents>4 Pertinent Negatives Pertinent Negatives: No Symptoms of GERD, No Major Cardiovascular Symptoms or Complaints, No Major Pulmonary Symptoms or Complaints and No History of CVA/TIA Cardiac & Pulmonary Exam Cardiac Exam: Normal S1/S2 Heart Sounds Pulmonary Exam: Clear Bilateral Breath Sounds Implantable Cardiac Device Does patient have a Pacemaker or an ICD?: No Airway Exam Known Difficult Airway: No Mallampati Class: 1 Mouth Opening: Normal (> 3cm) Thyromental Distance: Greater than 3 cm Neck Range of Motion: Full ROM Neck Circumference: Thick Teeth Condition: Edentulous (Remains of some. [place] teeth at gumline) ASA Classification ASA Score: ASA 3 Emergency Case?: No NPO Status NPO Status: NPO Clears >2 hours, Solids >8 hours Status Status: Not Relevant due to Medical History Anesthesia Plan Resuscitation Status: Full Code Anesthesia Technique: General Anesthesia Airway Planned: Natural Airway Monitors Used: Standard Monitors
[2021-04-27] MEDS: ceFAZolin 3,000 MG in Normal Saline 100 ML 200 MG IVPB (13:55)
[2021-04-27] MEDS: Bupivacaine 0.5% Pres-Free 30 ML VIAL (14:03)
[2021-04-27 14:17] VITALS: BMI 42.7
[2021-04-27 14:18] VITALS: BP 133/79; PULSE 77; RESP 18; TEMP 36.3; O2SAT 98
--- NOTE | 2021-04-27 14:25 | ROE_ITS ---
Date of service: 04/27/21 Time of Service: 14:25 Operative Note Operative Note DATE OF PROCEDURE: 03/23/19 PRE-OP DIAGNOSIS: Right Knee Arthrofibrosis s/p Replacement POST-OP DIAGNOSIS: same PROCEDURE: Right Knee Manipulation Under Anesthesia SURGEON: Rickie Vázquez Refer to Anesthesia Record ESTIMATED BLOOD LOSS: 0 PATHOLOGY: none sent TOURNIQUET TIME: 0 COMPLICATIONS: None Patient was transported to: PACU Patient's condition: stable Indications: Emily is a 56 year old female who is s/p knee replacement. Despite diligent work with physical therapy there has been continued stiffness. To assist with mobility, I offered a manipulation under anesthesia. I discussed the risks of the procedure to include bleeding, pain, recurrent stiffness, fracture. Despite these risks, she elects to proceed. Findings: Preoperative flexion = 90 Postoperative flexion = 110 Preoperative extension = 5 Postoperative extension = 2 Procedure Description: The patient is agreed in the preoperative holding area. Identity was confirmed and the correct side was identified and marked. The consent was reviewed the patient and signed. History and physical was updated. Emily was taken back to the operating room. The right side was identified as the correct side. A timeout was performed for safe surgery. A general anesthetic was administered. The knee was then prepped with ChloraPrep and an intra-articular injection of 10 cc of 0.5% bupivacaine was administered. Once a muscle relaxant was fully on board manipulation was performed. Pre- manipulation range of motion was noted. A gentle manipulation was performed first into flexion using a very small lever arm and adding gentle and progressive pressure to the tibia. There is audible and palpable crepitus with improvement in range of motion. This was cycled and repeated multiple times. The leg was then brought into extension and gentle anterior posterior pressure was applied with a supported hand behind the proximal tibia and knee. This was brought back into flexion was once again manipulated with gentle and progressive pressure. Final range of motion numbers were recorded. A Band-Aid was applied to the injection site. She was awake from anesthesia and taken to the PACU in stable condition.
[2021-04-27 14:48] VITALS: BP 146/84; PULSE 74; RESP 16; TEMP 36.3; O2SAT 96
--- NOTE | 2021-04-27 15:04 | W.ANESPOSTOP ---
Postoperative Evaluation Date, Time and Location Date Performed: 04/27/21 Time Performed: 15:04 Patient Location: Day Surgery Unit Vital Signs Most Recent Imported Vital Signs: Most Recent Vital Signs Temp Pulse Resp BP Pulse Ox 36.3 C L 74 16 146/84 H 96 04/27/21 14:48 04/27/21 14:48 04/27/21 14:48 04/27/21 14:48 04/27/21 14:48 Pain Score Most Recent Pain Score: Most Recent Pain Score Pain Level 0 04/27/21 14:48 Assessment Mental Status: Awake (Alert & Oriented to Patient Baseline) Airway and Respiratory Function: Patent airway with normal (patient baseline) respiratory exam Cardiovascular Function: Hemodynamically Stable Hydration Status: Adequately Hydrated Nausea & Vomiting: No Nausea or Vomiting Pain: Pt. Denies Any Pain Peripheral Nerve Block: Patient did not receive a nerve block
== END 2021-04-27 15:20 | disposition home or self-care (01) ==
PROVIDERS: PCP Nurse Practitioner Family; Visit Provider Student in an Organized Health Care Education/Training Program
PROC: (CPT 27570; principal; 2021-04-27 13:45)
DX: T84.82XA Fibrosis due to internal orthopedic prosthetic devices, implants and grafts, initial encounter (principal)
CPT/HCPCS: 27570; G0105; J0690; J1100; J1885; J2405

== ENCOUNTER → 2021-05-11 09:41 | Outpatient (BNVA) | payer MEDICARE, SELFPAY | PROVIDERS: PCP Nurse Practitioner Family; Referring Provider Nurse Practitioner Family | DX: M24.661 Ankylosis, right knee (principal); Z96.651 Presence of right artificial knee joint ==

== ENCOUNTER → 2021-06-15 09:44 | Outpatient (BNVA) | payer MEDICARE, SELFPAY | PROVIDERS: PCP Nurse Practitioner Family; Referring Provider Nurse Practitioner Family; Visit Provider Student in an Organized Health Care Education/Training Program | DX: M75.01 Adhesive capsulitis of right shoulder (principal); M67.911 Unspecified disorder of synovium and tendon, right shoulder; M24.661 Ankylosis, right knee; Z96.651 Presence of right artificial knee joint | CPT/HCPCS: 99212 ==

== ENCOUNTER 2021-06-29 00:26 | Outpatient (CLI) | payer MEDICARE, SELFPAY ==
--- NOTE | 2021-06-29 07:00 | DI.MRI_ITS ---
Exam(s) MR UPPER JOINT RT WO EXAM: MR UPPER JOINT RT WO CLINICAL HISTORY: shoulder pain, adhesive capsulitis,m75.01. TECHNIQUE: Multiplanar multisequence MRI was performed. COMPARISON: Chest x-ray 22 November 2018. FINDINGS: BONES: There is no fracture or contusion pattern. There is a variant of an anomalous articulation t he distal clavicle and coracoid process. There is some fluid in spurring at this area. This could be seen on the prior chest x-ray. Red marrow reconversion. JOINTS: The acromioclavicular shows inferior spurring without definite impingement. Small glenohumer al joint effusion. TENDONS: Supraspinatus: Areas of high signal consistent with tendinitis or partial tear. Infraspinatus: Unremarkable. Subscapularis: Unremarkable. Teres Minor: Unremarkable. Biceps and Fannin: Unremarkable. MUSCLES: Unremarkable. GLENOID LABRUM: Unremarkable on this noncontrast examination. SOFT TISSUES: Unremarkable. LIGAMENTS: Unremarkable. OTHER: Subacromial and subdeltoid bursae are unremarkable. Small amount of fluid in the subcoracoid b ursa. IMPRESSION: Supraspinatus tendinitis versus partial tear. 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 DATA REPOSITORY:
== END 2021-06-29 00:46 ==
LOC: DI 00:26
PROVIDERS: PCP Nurse Practitioner Family; Visit Provider Student in an Organized Health Care Education/Training Program
DX: M25.511 Pain in right shoulder (principal); M75.01 Adhesive capsulitis of right shoulder; M25.411 Effusion, right shoulder; M75.81 Other shoulder lesions, right shoulder
CPT/HCPCS: 73221

== ENCOUNTER 2021-12-03 02:35 | Outpatient (CLI) | payer MEDICARE, SELFPAY ==
[2021-12-03 08:13] LABS: Anion Gap 7.9 mmol/L (3-11); BUN 16 mg/dL (7-18); CO2 28.1 mmol/L (21.0-32.0); CREATININE 0.9 mg/dL (0.55-1.02); Calcium 8.8 mg/dL (8.5-10.1); Calculated LDL 116 mg/dL (<100); Chloride 105 mmol/L (98-107); Cholesterol 199 mg/dL (<200); Estimated GFR 75.97 (mL/min/1.73m2); Glucose 101 mg/dL (74-106); HDL Cholesterol 60 mg/dL (40-60); Potassium 3.8 mmol/L (3.5-5.1); Sodium 141 mmol/L (136-145); Triglyceride 118 mg/dL (<150)
== END 2021-12-03 02:36 | disposition home or self-care (01) ==
LOC: LBO 02:35
PROVIDERS: PCP Nurse Practitioner Family; Visit Provider Nurse Practitioner Family
DX: Z00.00 Encounter for general adult medical examination without abnormal findings (principal); I10 Essential (primary) hypertension
CPT/HCPCS: 36415; 80048; 80061

== ENCOUNTER 2021-12-05 02:14 | Outpatient (CLI) | payer MEDICARE, SELFPAY ==
--- NOTE | 2021-12-05 13:45 | DI.CT_ITS ---
Exam(s) CT HEAD WO EXAM: CT HEAD WO CLINICAL HISTORY: TENSION HEADACHE G44.209 MIGRAINE G43.909. TECHNIQUE: Imaging Protocol: Axial computed tomography images with coronal and sagittal reformatted images were created and reviewed COMPARISON: No exams were available for comparison FINDINGS: The ventricular system is normal in appearance. No evidence of acute intracranial hemorrhage, mass effect, or midline shift. The orbital structures are unremarkable. The temporal bone structures appear intact. Calvarium: Normal. Visualized Paranasal sinuses/Mastoids: Clear. IMPRESSION: Normal cranial CT. RADIATION DOSE DELIVERED: 735.17mGy.cm Total DLP 735.17mGy.cm Total DLP !Error CTDIvol DATA REPOSITORY: All CT scans at this facility are submitted to the National Radiology Data Registry (NRDR) Dose Index Registry (DIR) with the [employer] (A[employer]). RADIATION OPTIMIZATION: All CT scans at this facility use at least one of these dose optimization te chniques: automated exposure control; mA and/or kV adjustment per patient size (includes targeted exa ms where dose is matched to clinical indication); or iterative reconstruction.
== END 2021-12-05 02:34 ==
LOC: DI 02:15
PROVIDERS: PCP Nurse Practitioner Family; Visit Provider Nurse Practitioner Family
DX: G44.209 Tension-type headache, unspecified, not intractable (principal)
CPT/HCPCS: 70450

== ENCOUNTER → 2021-12-11 08:01 | Outpatient (BNVA) | payer MEDICARE, SELFPAY | PROVIDERS: PCP Nurse Practitioner Family; Referring Provider Nurse Practitioner Family; Visit Provider Nurse Practitioner Adult Health | DX: G43.009 Migraine without aura, not intractable, without status migrainosus (principal) | CPT/HCPCS: 99204; 99214 ==

== ENCOUNTER 2021-12-11 16:20 | Outpatient (REF) | payer MEDICARE, SELFPAY ==
--- NOTE | 2021-12-11 15:00 | SKI_PTH ---
PATIENT: Emily Tobin LOC: NCN #:[id number] AGE/SX: 56/F ROOM: RE12/11/[address]: Marquita Cochran : 1965 BED: DIS: 12/11/2021 SPEC #: [id number] RECD: 12/11/21 18:32 STATUS: DIANA RESanjay #: [id number] PORTIA: 12/11/21 15:[address]: Marquita Cochran DEPT: Surgical Specimen RECD BY: Jennifer Gutierrez Tissues: 1 - SKIN BIOPSY(SHAVE/PUNCH) Procedures: SKIN LEVEL 4 Comments: [id number]
== END 2021-12-11 16:21 | disposition home or self-care (01) ==
LOC: NCHCN 16:20
PROVIDERS: PCP Nurse Practitioner Family; Visit Provider Nurse Practitioner Family
DX: D22.4 Melanocytic nevi of scalp and neck (principal)
CPT/HCPCS: 88305

== ENCOUNTER → 2022-01-09 08:08 | Outpatient (BNVA) | payer MEDICARE, SELFPAY | PROVIDERS: PCP Nurse Practitioner Family; Referring Provider Nurse Practitioner Family; Visit Provider Nurse Practitioner Adult Health | DX: F39 Unspecified mood [affective] disorder (principal); M79.7 Fibromyalgia; G43.009 Migraine without aura, not intractable, without status migrainosus | CPT/HCPCS: 99213 ==

== ENCOUNTER 2022-01-24 09:59 | Outpatient (CLI) | payer MEDICARE, SELFPAY ==
[2022-01-24 10:40] VITALS: BP 146/91; PULSE 68; RESP 20; TEMP 36.9; O2SAT 97
[2022-01-24] MEDS: fentaNYL 100 MCG/2 ML VIAL IVP ×3 (11:22→11:37)
[2022-01-24] MEDS: Lactated Ringers 500 ML 80 ML IV (11:42)
--- NOTE | 2022-01-24 11:55 | DI.RAD_ITS ---
Exam(s) XR PAIN CLINIC LUMBAR SP 2V EXAM: XR PAIN CLINIC LUMBAR SP 2V CLINICAL HISTORY: Dx: Lumbar Spondylosis TECHNIQUE: 2D and realtime digital imaging was performed. COMPARISON: No exams were available for comparison FINDINGS: C-arm fluoroscopy was utilized by Dr. Stein during reported lumbar radiofrequency ablation. Hard copy show needle placement bilaterally at what appear to be the L3-4, L4-5, and L5-S1 levels. IMPRESSION: RADIATION DOSE DELIVERED: jagdish Arora=30.58 mGy
[2022-01-24 11:58] VITALS: BP 153/94; PULSE 74; RESP 16; O2SAT 98
--- NOTE | 2022-01-24 12:39 | PDOC.PAIN_ITS ---
Date of service: 01/24/22 Time of Service: 12:39 Pain Clinic Procedure Note Procedure Note Procedure Note: Bilateral Lumbar Radiofrequency with Avenos Machine PROCEDURE NOTE Date of Service: January 24, 2022 Patient: Emily Tobin Provider: Drake Stein DO, MPH Pre Operative Diagnosis: Lumbosacral Spondylosis without Myelopathy Post Operative Diagnosis: Same Pre- procedure pain; VAS= 10/10 PROCEDURE: Radiofrequency Ablation of medial branches - Bilateral L3 L4 L5 and lateral branches of bilateral S1. Emily Tobin was brought into the fluoroscopy suite and positioned into the prone position on the fluoroscopy table and allowed to adjust to a position of comfort. A grounding pad was placed on the left thigh. The lumbar region was widely prepped with a chloraprep solution, allowed to air dry and draped in standard sterile surgical fashion. Local anesthesia was provided by 3 mL of 2 % Lidocaine delivered with a 25g needle. A 17g 100 mm radiofrequency introducer needle was placed to the planned anatomic targets guided with intermittent fluoroscopy with a perpendicular approach to terminally place at the junction of the superior articular process and the transverse process of the bilateral L4 L5, the base of the sacral ala on the bilateral for the L5 medial branch nerve and the area between base of the sacral ala to the S1 foramen bilaterally. The stylets were removed and radiofrequency probes with a 4mm active tip were then inserted. Needle tip position of the probes was verified in the AP, oblique, and lateral views. At each site, the medial branch nerve was stimulated at 2 Hz to a maximum 1-2 volts determined to finalize safe needle and electrode placement. The patient was awake and responsive during this portion of the procedure. Each target was anesthetized with 1-2 mL of 2% Lidocaine for anesthesia for lesioning and then each target was lesioned at 80 degrees Celsius for 2 minutes and 30 seconds. Tissue impedences were noted to be between 250 and 500 Ohms. I then injected 1/4 cc Depomedrol (40 mg/cc) at each segmental sensory nerve. The was followed by 1 cc of Bupivacaine (0.5%). Electrodes and needles were then removed and bandages placed over the needle placement sites, the patient then returned to the supine position on a stretcher and transported to the recovery room without hemodynamic, neurologic, or allergic reactions. Fluoroscopic images were printed for hard copy recording and digitally archived. POST PROCEDURE EVALUATION: IMPRESSION: 1. Summary of procedure. Medication given is documented in the MAR. 2. The patient will be contacted in 1-3 weeks 3. Estimated Blood Loss: <5 mls 4. Fluoroscopy time: Documented in the EMR. Follow up plans and appointments were discussed with the Emily . Post procedure instruction was given as documented in nursing documentation and having met discharge criteria, Emily was discharged from the [facility]. COMMENTS: No apparent complications. Post-procedure pain: VAS= 1/10. F/U with our office as needed. Drake Stein DO, MPH [facility]-Pain Management [facility]-Center for Pain Management
[2022-01-24] MEDS: Bupivacaine 0.5% Pres-Free 10 ML VIAL IJ (12:53)
[2022-01-24] MEDS: Lidocaine 2% Pres-Free 5 ML VIAL IJ (12:54)
[2022-01-24] MEDS: methylPREDNISolone ACETATE 40 MG/ML VIAL IJ (12:54)
== END 2022-01-24 10:00 | disposition home or self-care (01) ==
LOC: PC 10:00
PROVIDERS: PCP Nurse Practitioner Family; Visit Provider Preventive Medicine Occupational Medicine
DX: M47.817 Spondylosis without myelopathy or radiculopathy, lumbosacral region (principal); M54.50 Low back pain, unspecified
CPT/HCPCS: 64635; 64636; 72100; J1030; J3010

== ENCOUNTER 2022-02-10 14:50 | Emergency (ER) | payer MEDICARE, SELFPAY ==
[2022-02-10 15:02] VITALS: BP 127/72; PULSE 81; RESP 20; TEMP 36.8; O2SAT 95
--- NOTE | 2022-02-10 16:15 | DI.RAD_ITS ---
Exam(s) XR PORTABLE CHEST AP EXAM: XR PORTABLE CHEST AP CLINICAL HISTORY: cough TECHNIQUE: 2D digital imaging was performed. COMPARISON: CR,XR XR CHEST 2V PA LATERAL from 11/22/2018 FINDINGS: LUNGS: Clear. No pleural abnormality seen. HEART: Normal size. AORTA: Normal diameter. BONES: Unremarkable for age. Soft tissues: Unremarkable. IMPRESSION: No acute findings. DATA REPOSITORY: RADIATION DOSE DELIVERED:
[2022-02-10 16:55] LABS: COVID-19 PCR Negative (Negative); Influenza A PCR Negative (Negative); Influenza B PCR Negative (Negative)
[2022-02-10 17:01] LABS: RSV PCR Positive (Negative); Source Nasopharynx
--- NOTE | 2022-02-10 17:41 | DI.VRAD_ITS ---
PROCEDURE INFORMATION: Exam: XR Chest Exam date and time: 02/10/2022 4:30 PM Age: 56 years old Clinical indication: Cough TECHNIQUE: Imaging protocol: Radiologic exam of the chest. Views: 1 view. COMPARISON: CR XR CHEST 2V PA LATERAL 11/22/2018 9:34 PM FINDINGS: Lungs: No pulmonary consolidation is seen. Pleural spaces: No pleural effusion or pneumothorax is demonstrated. Heart/Mediastinum: Heart size is normal. Bones/joints: The visualized bony structures appear grossly intact, as seen. IMPRESSION: No active disease is seen in the chest. Dictated and Authenticated by: Austin Sanderson MD. Ordering:AMBER Eubanks MD
--- NOTE | 2022-02-10 17:48 | ED.GENADUL_ITS ---
Discharge Plan Disposition Patient Disposition: Home Condition: Stable Discharge Details Clinical Impression: RSV (respiratory syncytial virus infection) Primary Care Provider: Marquita Cochran ED Provider: Raimundo Moore Home Meds and New Rx's Prescriptions: New benzonatate 200 mg capsule 200 mg PO TID PRN (Reason: cough) Qty: 30 0RF Continued ferrous sulfate 325 mg (65 mg iron) tablet 325 mg PO DAILY diclofenac potassium 50 mg tablet 50 mg PO BID PRN cholecalciferol (vitamin D3) 25 mcg (1,000 unit) Tablet 25 mcg PO DAILY naloxone [Narcan] 4 mg/actuation [place],Non-Aerosol 4 mg INTRANASAL DIRECTED PRN lamotrigine 100 mg tablet 100 mg PO HS Rx Instructions: at hs Rexulti 1 mg tablet 1 mg PO HS Rx Instructions: 1 at HS bupropion HCl [Wellbutrin XL] 300 mg tablet extended release 24 hr 300 mg PO QAM topiramate [Topamax] 100 mg tablet 100 mg PO QHS Qty: 30 3RF bupropion HCl [Wellbutrin SR] 100 MG tablet extended release 12 hr 150 mg PO HS lamotrigine [Lamictal] 100 MG tablet 150 mg PO DAILY Label Comments: PT TAKES 150 MG AM AND 100 MG HS magnesium oxide 250 mg magnesium tablet 250 mg PO DAILY Ubrelvy 100 mg tablet 100 mg PO ONCE Qty: 16 4RF Rx Instructions: as a single dose; may repeat once in >=2 hours after first dose if needed. No more than 2 doses in 24 hours. Discharge Instructions Instructions: Respiratory Syncytial Virus (ED) Additional Instructions: During viral illness it is important that you get plenty of rest and stay well- hydrated. Please take medication as prescribed and if you develop any new or significant worsening of symptoms return to the emergency department for reassessment. If you are not improving over the next week please follow-up with local urgent care or primary care provider for recheck of your symptoms and further treatment as needed. Referrals: Marquita Cochran [Primary Care Provider] - 1 week (As needed for reassessment) Discharge Data Discharge Date/Time-TO BE ENTERED AT DEPARTURE: 02/10/22 18:00 Medical Decision Making Patient presenting to the emergency department for 3 days of malaise, cough, fatigue. Patient does deny any fevers and states negative COVID test at home. Patient's was recently diagnosed with bronchitis but she states he is now feeling better. Physical exam shows clear lung sounds, slight erythema to the posterior pharynx more likely secondary to coughing, otherwise unremarkable exam. Patient has stable vital signs with no signs of hypoxia no tachycardia, and is afebrile. We will perform viral pathogen panel chest x-ray and give patient Tessalon Perles and breathing treatment pending results. Review of chest x-ray is overall unremarkable. Patient is positive for RSV but negative for COVID and influenza. Reassessed patient and she did state improvement after breathing treatment. Will prescribe patient Tessalon Perles and albuterol to use at home along with conservative management for viral illness discussed. After discussion of diagnosis and plan of care patient has no further needs, questions, or concerns and states clear understanding to return to the emergency department for any worsening symptoms. This documentation was generated using Vupenation system, please disregard any oddities of phrase or misspellings. Sign Out No HPI General Mode of arrival: ambulatory . Date/Time Provider Initiated Documentation: 02/10/22 16:04 . Limitations to Documentation: no limitations . Information obtained by: patient and RN notes reviewed . History of Present Illness 56 year old F presents to the emergency department with the chief complaint of Cough fatigue and cold symptoms, described as moderate, with intensity rated at 7. Quality is described as aching, Patient started experiencing this day(s) (3) and it has been constant. No relieving factors improve symptom(s), No exacerbating factors reported . Patient notes fever/chills and malaise. Patient did receive the following treatments prior to arrival, none Related Data Home Medications Medication Instructions Recorded Confirmed bupropion HCl 100 mg tablet,12 hr 150 mg PO HS 04/26/14 01/24/22 sustained-release (Wellbutrin SR) lamotrigine 100 mg tablet 150 mg PO DAILY 04/26/14 01/24/22 (Lamictal) cholecalciferol (vitamin D3) 25 25 mcg PO DAILY 08/31/19 01/24/22 mcg (1,000 unit) tablet naloxone 4 mg/actuation nasal 4 mg intranasal DIRECTED PRN 08/31/19 01/24/22 spray (Narcan) ferrous sulfate 325 mg (65 mg 325 mg PO DAILY 09/22/19 01/24/22 iron) tablet bupropion HCl 300 mg 24 hr tablet, 300 mg PO QAM 10/26/20 01/24/22 extended release (Wellbutrin XL) magnesium oxide 250 mg PO DAILY 11/27/21 01/24/22 brexpiprazole 1 mg tablet (Rexulti) 1 mg PO HS 12/11/21 01/24/22 diclofenac potassium 50 mg tablet 50 mg PO BID PRN 12/11/21 01/24/22 lamotrigine 100 mg tablet 100 mg PO HS 12/11/21 01/24/22 topiramate 100 mg tablet (Topamax) 100 mg PO QHS #30 tabs 01/09/22 01/24/22 ubrogepant 100 mg tablet (Ubrelvy) 100 mg PO ONCE #16 tabs 01/14/22 01/24/22 benzonatate 200 mg capsule 200 mg PO TID PRN cough #30 caps 02/10/22 Previous Rx's Medication Instructions Recorded topiramate 100 mg tablet (Topamax) 100 mg PO QHS #30 tabs 01/09/22 ubrogepant 100 mg tablet (Ubrelvy) 100 mg PO ONCE #16 tabs 01/14/22 benzonatate 200 mg capsule 200 mg PO TID PRN cough #30 caps 02/10/22 Allergies Allergy/AdvReac Type Severity Reaction Status Date / Time amitriptyline Allergy Verified 01/24/22 10:38 hydromorphone Allergy Verified 01/24/22 10:38 [id number] Antimigraine Allergy Verified 01/24/22 10:38 Agents diazepam AdvReac Severe VOMITING Verified 01/24/22 10:38 Penicillins AdvReac Severe Skin Rash, Verified 01/24/22 10:38 yeast infection prochlorperazine AdvReac Severe PANICK Verified 01/24/22 10:38 [Prochlorperazine] ATTACKS zolpidem [Zolpidem] AdvReac Intermediate SLEEP Verified 01/24/22 10:38 WALKING AND TALKING clonazepam [From Klonopin] AdvReac Mild NOT Verified 01/24/22 10:38 EFFECTIVE General Stated Complaint: RespSymp NEELA: 4 Review of Systems Constitutional Constitutional: Reports body ache(s), Reports chills, Reports fever(s), Denies headache(s) and Reports malaise ENT Ears, Nose, Mouth, and Throat: Denies dizziness, Denies otalgia, Denies headache(s), Reports nasal congestion, Denies nasal discharge, Denies sinus pain and Reports sore throat Cardiovascular Cardiovascular: Denies chest pain and Denies dyspnea Respiratory Respiratory: Reports chest congestion, Reports cough, Reports pain with cough and Denies dyspnea Gastrointestinal Gastrointestinal: Denies abdominal pain, Denies diarrhea, Denies nausea and Denies vomiting Musculoskeletal Musculoskeletal: Denies joint swelling Integumentary/Breasts Skin/Breast: Denies rash Neurologic Neurologic: Denies dizziness and Denies headache(s) PFSH All Active Problems RSV (respiratory syncytial virus infection) (Acute) Migraine headache without aura (Acute) Dysfunction of right rotator cuff (Acute) Fibrosis of right knee joint (Acute) S/P Manipulation: 04/27/2021 Adhesive capsulitis of right shoulder (Acute) History of total right knee replacement (TKR) (Acute 02/06/21) Chronic iron deficiency anemia (Acute) Normal colonoscopy (Acute) Hot flashes (Acute) Weight gain (Acute) 40lbs in [id number]. Hormone replacement therapy (HRT) (Acute) 10/2020. 0.5mg/2.5mg. 12/2020. 1mg/5mg 01/25/21. 1.5/5mg. Medical History Abdominal pain Abnormal abdominal MRI Abnormal findings on diagnostic imaging of other abdominal regions, including retroperitoneum Adhesive capsulitis of left shoulder associated with type 2 diabetes mellitus (04/07/17) Anemia chronic headaches Community acquired pneumonia Degenerative disc disease, lumbar Depression Encounter for counseling regarding contraception Fatigue Fibromyalgia Ganglion cyst Knee pain, right Low back pain Low blood sugar Lumbar disc disease Migraine 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 denies this Narcotic abuse Pt. denies this Pain in left shoulder Pernicious anemia Personality disorder Pt. denies this post trauma stress disorder Per pt. requests when waking up for nobody to touch her neck- Preventative health care Primary fibromyalgia syndrome Tension headache Vitamin D deficiency Wrist pain Surgical History section twice Cholecystectomy De Quervain's tenosynovitis, right s/p DeQuervain's release DOS: 10/26/2020 Endoscopic Carpal Tunnel release bilateral S/P gastric bypass Synovial cyst of right wrist s/p excision DOS: 11/14/20 Family History Mother No problems noted. Father Alzheimer's disease Other Cancer Social History Smoking/Tobacco Use Status: Never Smoking risk assessment performed?: Yes Alcohol Intake: current Alcohol Intake frequency: holidays/special occasions only Alcohol type: hard liquor Drug use: Never Substance use type: does not use Household members: spouse, children and other Details: Sobia-Kyree, S-Elijah 13yo, D-Montse 15yo. 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 Graduated [employer]. 2 bachelors, high honors. 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 amenorrhea after Mirena IUD removed. ) History History 6 Para 5 Hx # Term Pregnancies 5 Multiple births Hx # Pregnancies Ectopic pregnancies AB induced Hx Number of Living Children 5 AB spontaneous 1 Exam Const General: cooperative, comfortable and no acute distress Orientation: alert and awake [facility] Head: normal to inspection, normocephalic and atraumatic Ears: hearing grossly normal bilaterally and TM's normal bilaterally General nose exam: external nose normal Face and sinus: no erythema Mouth: oral mucosae normal, no drooling, no muffled voice and no trismus Throat: tonsils normal and posterior oropharynx abnormal erythema Neck Neck: normal visual inspection, full ROM, no lymphadenopathy, no meningeal signs, trachea midline and supple Resp Effort & Inspection: normal respiratory effort, able to speak in complete sentences and cough Quality of cough: dry Auscultation: clear to auscultation bilaterally Cardio Rate: regular rate Rhythm: regular rhythm Heart Sounds: S1 normal, S2 normal, normal S1 and S2, no click, no gallops, no murmurs and no rubs Skin General skin exam: no rashes or lesions noted and dry skin (warm) Neuro General: patient alert, patient awake, patient oriented x3, gait normal and moves all extremities Cognition: normal cognition Speech: speech normal Course Vital Signs Vital signs: Vital Signs Temperature 36.8 C 02/10/22 15:02 Pulse 81 02/10/22 15:02 Respiratory Rate 20 02/10/22 15:02 Blood Pressure 127/72 02/10/22 15:02 Pulse Oximetry 95 02/10/22 15:02 Temperature 36.8 C 02/10/22 15:02 Temperature Source Temporal Artery Scan 02/10/22 15:02 Pulse 81 02/10/22 15:02 Respiratory Rate 20 02/10/22 15:02 Respiratory Effort Non-Labored 02/10/22 15:56 Respiratory Depth Normal 02/10/22 15:56 Blood Pressure 127/72 02/10/22 15:02 Blood Pressure Position Sitting 02/10/22 15:02 Pulse Oximetry 95 02/10/22 15:02 Oxygen Delivery Method Room Air 02/10/22 15:02 Oxygen Flow Rate 0 02/10/22 15:02 Pain Level 8 02/10/22 15:02 Lab/Test Results Lab/Test Results: Laboratory Tests Range/Units 02/10/22 16:10 COVID-19 Source Nasopharynx SARS-CoV-2 (PCR) (Negative) Negative Influenza Type A (PCR) (Negative) Negative Influenza Type B (PCR) (Negative) Negative RSV (PCR) (Negative) Positive A*
[2022-02-10] MEDS: Albuterol HFA 8 GM 60 PUFF INH IH (17:58)
[2022-02-10] MEDS: Inhaler, Assist Device 1 EACH MC (17:58)
== END 2022-02-10 18:00 | disposition home or self-care (01) ==
PROVIDERS: Emergency Provider Nurse Practitioner Family; PCP Nurse Practitioner Family
DX: J98.8 Other specified respiratory disorders (principal); B97.4 Respiratory syncytial virus as the cause of diseases classified elsewhere; Z20.822 Contact with and (suspected) exposure to COVID-19
CPT/HCPCS: 87637; 94640; 99284; 71045

== ENCOUNTER → 2022-02-21 07:55 | Outpatient (BNVA) | payer MEDICARE, SELFPAY | PROVIDERS: PCP Nurse Practitioner Family; Referring Provider Nurse Practitioner Family; Visit Provider Nurse Practitioner Adult Health | DX: F39 Unspecified mood [affective] disorder (principal); M79.7 Fibromyalgia; G43.009 Migraine without aura, not intractable, without status migrainosus | CPT/HCPCS: 99213 ==

== ENCOUNTER 2022-04-19 11:28 | Outpatient (CLI) | payer MEDICARE, SELFPAY ==
--- NOTE | 2022-04-19 09:45 | DI.RAD_ITS ---
Exam(s) XR KNEE RT 2V AP,LAT EXAM: XR KNEE RT 2V AP,LAT CLINICAL HISTORY: annual f/u R TKA. TECHNIQUE: 2D digital imaging was performed. Two images were obtained. AP and lateral views were ob tained. COMPARISON: CR XR KNEE RT 3V AP,LAT,MAURICIO from 10/04/2020 CR XR KNEE RT 1V from 02/19/2021 FINDINGS: BONES: There are stable post operative changes present. No fracture or dislocation. JOINTS: The orthopedic hardware is in good position. No evidence of hardware loosening. SOFT TISSUE: Normal. IMPRESSION: Stable postoperative changes. DATA REPOSITORY: RADIATION DOSE DELIVERED:
== END 2022-04-19 11:29 | disposition home or self-care (01) ==
LOC: DIORS 11:34
PROVIDERS: PCP Nurse Practitioner Family; Visit Provider Student in an Organized Health Care Education/Training Program
DX: Z96.651 Presence of right artificial knee joint (principal)
CPT/HCPCS: 99213; 73560

== ENCOUNTER → 2022-05-23 08:03 | Outpatient (BNVA) | payer MEDICARE, SELFPAY | PROVIDERS: PCP Nurse Practitioner Family; Visit Provider Nurse Practitioner Adult Health | DX: G43.009 Migraine without aura, not intractable, without status migrainosus (principal); F39 Unspecified mood [affective] disorder; M79.7 Fibromyalgia; G47.9 Sleep disorder, unspecified | CPT/HCPCS: 99213; 99214 ==

== ENCOUNTER → 2022-06-17 10:05 | Outpatient (BNVA) | payer MEDICARE, SELFPAY | PROVIDERS: PCP Nurse Practitioner Family; Referring Provider Nurse Practitioner Family; Visit Provider Student in an Organized Health Care Education/Training Program | DX: Z47.1 Aftercare following joint replacement surgery (principal); Z96.651 Presence of right artificial knee joint; M24.661 Ankylosis, right knee | CPT/HCPCS: 99213 ==

== ENCOUNTER 2022-07-05 00:36 | Outpatient (CLI) | payer MEDICARE, SELFPAY ==
--- NOTE | 2022-07-05 12:19 | DI.MAMMO_ITS ---
Exam(s) MAMMO SCREENING EXAM: MAMMO SCREENING CLINICAL HISTORY: SCREENING, Z12.39, Z12.31 TECHNIQUE: Mammograms were interpreted according to the usual protocol including computer analysis w Onovative CAD system, tomosynthesis and C-view imaging. COMPARISON: 2017 through 2021 FINDINGS: The breasts are composed of scattered fibroglandular densities, Breast Density category B. No suspicious masses or suspicious microcalcifications are seen. No skin thickening or abnormal axillary lymph nodes are seen. There has been no significant change from prior exams. IMPRESSION: BI-RADS Category 1, Negative mammogram Yearly screening mammography is recommended. Breast Density - Category B, scattered fibroglandular densities. A negative radiographic report should not delay biopsy if a dominant or clinically suspicious mass is present. Up to ten percent of cancers are not identified on mammography. A negative report may reinforce clinical impression. Adenosis and dense breasts may obscure an underlying neoplasm. False positive reports average 6 to 10%. Patient will receive a letter notifying them of these results.
== END 2022-07-05 00:56 ==
LOC: DI 00:37
PROVIDERS: PCP Nurse Practitioner Family; Visit Provider Nurse Practitioner Family
DX: Z12.31 Encounter for screening mammogram for malignant neoplasm of breast (principal)
CPT/HCPCS: 77063; 77067

== ENCOUNTER → 2022-07-09 10:28 | Outpatient (BNVA) | payer MEDICARE, SELFPAY | PROVIDERS: PCP Nurse Practitioner Family; Visit Provider Nurse Practitioner Adult Health | DX: G43.009 Migraine without aura, not intractable, without status migrainosus (principal); F39 Unspecified mood [affective] disorder; G47.9 Sleep disorder, unspecified | CPT/HCPCS: 99212; 99213 ==

== ENCOUNTER 2022-08-01 07:44 | Outpatient (CLI) | payer MEDICARE, SELFPAY ==
[2022-08-01 08:00] VITALS: BP 130/84; PULSE 83; RESP 20; TEMP 36.7; O2SAT 100
[2022-08-01] MEDS: fentaNYL 100 MCG/2 ML VIAL IVP ×2 (08:34→08:47)
[2022-08-01] MEDS: Lactated Ringers 500 ML 80 ML IV (08:48)
[2022-08-01 09:13] VITALS: BP 145/83; PULSE 67; RESP 20; O2SAT 97
--- NOTE | 2022-08-01 09:15 | DI.RAD_ITS ---
Exam(s) XR PAIN CLINIC LUMBAR SP 2V EXAM: XR PAIN CLINIC LUMBAR SP 2V CLINICAL HISTORY: Dx: Lumbar Spondylosis TECHNIQUE: 2D and realtime digital imaging was performed. CONTRAST MATERIAL: Refer to procedure report. COMPARISON: No exams were available for comparison FINDINGS: Fluoroscopy was provided for Dr. Stein during the performance of a lumbar radiofrequency ablation. P lease refer to the procedure report for complete details. Ka,r=35.1 mGy IMPRESSION:
--- NOTE | 2022-08-01 09:17 | PDOC.PAIN_ITS ---
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 The pain returned this past Friday. PROCEDURE: Radiofrequency Ablation of medial branches - Bilateral L3 L4 L5 and lateral branches of bilateral S1. Emily Tobin was brought into the fluoroscopy suite and positioned into the prone position on the fluoroscopy table and allowed to adjust to a position of comfort. A grounding pad was placed on the left abdomen. The lumbar region was widely prepped with a chloraprep solution, allowed to air dry and draped in standard sterile surgical fashion. Local anesthesia was provided by 4 mL of 2% Lidocaine delivered with a 25g needle. A 17g 150mm radiofrequency introducer needle was placed to the planned anatomic targets guided with intermittent fluoroscopy with a perpendicular approach to terminally place at the junction of the superior articular process and the transverse process of the bilateral L4, L5, the base of the sacral ala on the bilateral for the L5 medial branch nerve and the area between base of the sacral ala to the S1 foramen bilaterally. The stylets were removed and radiofrequency probes with a 4mm active tip were then inserted. Needle tip position of the probes was verified in the AP, oblique, and lateral views. At each site, the medial branch nerve was stimulated at 2 Hz to a maximum 1-2 volts determined to finalize safe needle and electrode placement. The patient was awake and responsive during this portion of the procedure. Each target was anesthetized with 1-2 mL of 2% Lidocaine for anesthesia for lesioning and then each target was lesioned at 80 degrees Celsius for 2 minutes and 30 seconds. Tissue impedences were noted to be between 250 and 500 Ohms. 1/4 cc of Depomedrol (40 mg/cc) followed by 1 cc of 0.5% Bupivacaine was injected at each segmental sensory nerve. Electrodes and needles were then removed and bandages placed over the needle placement sites, the patient then returned to the supine position on a stretcher and transported to the recovery room without hemodynamic, neurologic, or allergic reactions. Fluoroscopic images were printed for hard copy recording and digitally archived. POST PROCEDURE EVALUATION: IMPRESSION: 1. Summary of procedure. Medication given is documented in the MAR. 2. The patient will be contacted in 1-3 weeks 3. Estimated Blood Loss: <5 mls 4. Fluoroscopy time: Documented in the EMR. Follow up plans and appointments were discussed with the Emily . Post procedure instruction was given as documented in nursing documentation and having met discharge criteria, Emily was discharged from the Pain Management Center. COMMENTS: No apparent complications. Post-procedure pain: VAS= 2/10. If she has at least 6 months of at least 50% pain and/or functional improvement, she can repeat this procedure. F/U with our office as needed. I personally performed this entire procedure. Drake Stein DO, MPH [facility]-Pain Management [facility]-Center for Pain Management
[2022-08-01] MEDS: Lidocaine 2% Multi-Dose 20 ML VIAL (09:32)
[2022-08-01] MEDS: methylPREDNISolone ACETATE 40 MG/ML VIAL IJ (09:33)
[2022-08-01] MEDS: Bupivacaine 0.5% Pres-Free 10 ML VIAL IJ (09:33)
== END 2022-08-01 07:45 | disposition home or self-care (01) ==
LOC: PC 07:44
PROVIDERS: PCP Nurse Practitioner Family; Visit Provider Preventive Medicine Occupational Medicine
DX: M47.817 Spondylosis without myelopathy or radiculopathy, lumbosacral region (principal); M54.50 Low back pain, unspecified
CPT/HCPCS: 64635; 64636; 72100; J1030; J3010; J3490

== ENCOUNTER 2022-08-20 07:13 | Day surgery (SDC) | payer MEDICARE, SELFPAY ==
[2022-08-20] VITALS (9 sets, daily range): BP systolic 121–139; BP diastolic 69–91; PULSE 61–85; RESP 11–22; TEMP 36.1–36.8; O2SAT 97–99; BMI 45.8
--- NOTE | 2022-08-20 07:26 | W.ANESPRE ---
General Info Date of Service Date Performed: 08/20/22 Height: 5 ft 2.5 in Weight: 115.666 kg Body Mass Index (BMI): 45.8 Surgical Procedure: Operation Date: 08/20/22 09:25 Proposed Procedure Side Surgeon p Knee Arthroscopy Synovectomy Right Rickie Vázquez MD s Knee Manipulation Right Rickie Vázquez MD Meds Allergies and Home Medications Allergies Allergy/AdvReac Type Severity Reaction Status Date / Time amitriptyline Allergy Verified 08/19/22 10:37 hydromorphone Allergy Verified 08/19/22 10:37 [id number] Antimigraine Allergy Verified 08/19/22 10:37 Agents diazepam AdvReac Severe VOMITING Verified 08/19/22 10:37 Penicillins AdvReac Severe Skin Rash, Verified 08/19/22 10:37 yeast infection prochlorperazine AdvReac Severe PANICK Verified 08/19/22 10:37 [Prochlorperazine] ATTACKS zolpidem [Zolpidem] AdvReac Intermediate SLEEP Verified 08/19/22 10:37 WALKING AND TALKING clonazepam [From Klonopin] AdvReac Mild NOT Verified 08/19/22 10:37 EFFECTIVE Home Medication Medication Instructions Recorded bupropion HCl 100 mg tablet,12 hr 150 mg PO HS 04/26/14 sustained-release (Wellbutrin SR) lamotrigine 100 mg tablet 150 mg PO DAILY 04/26/14 (Lamictal) cholecalciferol (vitamin D3) 25 25 mcg PO DAILY 08/31/19 mcg (1,000 unit) tablet ferrous sulfate 325 mg (65 mg 325 mg PO DAILY 09/22/19 iron) tablet bupropion HCl 300 mg 24 hr tablet, 300 mg PO QAM 10/26/20 extended release (Wellbutrin XL) magnesium oxide 250 mg PO DAILY 11/27/21 brexpiprazole 1 mg tablet (Rexulti) 1 mg PO HS 12/11/21 diclofenac potassium 50 mg tablet 50 mg PO BID PRN 12/11/21 lamotrigine 100 mg tablet 100 mg PO HS 12/11/21 alprazolam 1 mg tablet (Xanax) 1 mg PO QHS 05/23/22 melatonin 3 mg capsule 3 mg PO HS PRN 06/17/22 topiramate 25 mg tablet (Topamax) 25 mg PO DAILY #90 tabs 07/09/22 liraglutide 0.6 mg/0.1 mL (18 mg/3 1.8 mg subcut DAILY 08/19/22 mL) subcutaneous pen injector (Victoza 2-Shawn) topiramate 100 mg tablet (Topamax) 100 mg PO DAILY 08/19/22 naproxen 500 mg tablet 500 mg PO PRN PRN 08/20/22 vitamin B12 2,500 mcg-folic acid 1 tab PO DAILY 08/20/22 400 mcg disintegrating tablet Current Visit Medications: Current Medications Generic Name Dose Route Start Last Admin Trade Name Freq PRN Reason Stop Dose Admin Acetaminophen 1,000 mg 08/20/22 06:00 Acetaminophen 500 Mg Tab PO 08/20/22 16:00 PREOP NORMA Hydrocodone Bitart/Acetaminophen 0 tab 08/20/22 07:23 Hydrocodone 5/Acetaminophen 325 Tab PO 09/19/22 07:22 Q3H PRN PRN Pain Celecoxib 400 mg 08/20/22 06:00 Celecoxib 200 Mg Cap PO 08/20/22 16:00 PREOP NORMA Ringer's Solution 1,000 mls @ 80 mls/hr 08/20/22 06:00 IV 08/20/22 23:59 INFUSION NORMA Cefazolin Sodium 3,000 mg/ 100 mls @ 200 mls/hr 08/20/22 06:00 Sodium Chloride IV 08/20/22 16:00 PREOP NORMA Ondansetron HCl 4 mg/ Sodium 52 mls @ 200 mls/hr 08/20/22 07:23 Chloride IVPB 09/19/22 07:22 Q6H PRN PRN IV Miscellaneous Supplies 1 each 08/20/22 06:00 Iv Access IV 08/20/22 23:59 DIRECTED NORMA Sodium Chloride 0 ml 08/20/22 06:00 Normal Saline Flush 10 Ml Syr IV 08/20/22 23:59 PRN PRN Sodium Chloride 0 ml 08/20/22 06:00 Normal Saline 10 Ml Vial IJ 08/20/22 23:59 DIRECTED PRN Sterile Water 0 ml 08/20/22 06:00 Water,Injection,Sterile 10 Ml Vial IJ 08/20/22 23:59 DIRECTED PRN PFSH Active Problems Active Problems: Problem Status Onset Code Chronic iron deficiency anemia D50.9 Normal colonoscopy Hot flashes R23.2 Weight gain R63.5 Hormone replacement therapy (HRT) Z79.890 History of total right knee replacement (TKR) 02/06/21 Z96.651 Adhesive capsulitis of right shoulder M75.01 Fibrosis of right knee joint M24.661 Dysfunction of right rotator cuff M67.911 Migraine headache without aura G43.009 Medical History Medical History Abdominal pain Abnormal abdominal MRI Abnormal findings on diagnostic imaging of other abdominal regions, including retroperitoneum Adhesive capsulitis of left shoulder associated with type 2 diabetes mellitus (04/07/17) Anemia chronic headaches Community acquired pneumonia Degenerative disc disease, lumbar Depression Encounter for counseling regarding contraception Fatigue Fibromyalgia Ganglion cyst Knee pain, right Low back pain Low blood sugar Lumbar disc disease Migraine 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 denies this Narcotic abuse Pt. denies this Pain in left shoulder Pernicious anemia Personality disorder Pt. denies this post trauma stress disorder Per pt. requests when waking up for nobody to touch her neck- Preventative health care Primary fibromyalgia syndrome Tension headache Vitamin D deficiency Wrist pain Medical History Comments:: PTSD-please do touch neck waking; pt reports if waking from anesthesia in flat position she has N/V have occurred; please elevate HOB Surgical History Surgical History (Updated 08/19/22 @ 10:52 by Summer Leary) section twice Cholecystectomy De Quervain's tenosynovitis, right s/p DeQuervain's release DOS: 10/26/2020 Endoscopic Carpal Tunnel release bilateral H/O radiofrequency ablation (RFA) of nerve of lumbar spine L3-L5, S1 bilateral; July 2022 S/P gastric bypass Synovial cyst of right wrist s/p excision DOS: 11/14/20 Tobacco Smoking/Tobacco Use Status: Never Alcohol Alcohol Intake: current Alcohol intake frequency: holidays/special occasions only Alcohol type: hard liquor Substance Use Substance use: Never Substance use type: does not use Prental History History 6 Para 5 Hx # Term Pregnancies 5 Multiple births Hx # Pregnancies Ectopic pregnancies AB induced Hx Number of Living Children 5 AB spontaneous 1 Vital Signs and Lab Results Lab Results Blood Type / Crossmatch: No Data to Display Complete Blood Count: No Data to Display Complete Metabolic Panel: No Data to Display Liver Function Panel: No Data to Display Coagulation Panel: No Data to Display Cardiac Panel: No Data to Display Arterial Blood Gas: No Data to Display Venous Blood Gas: No Data to Display Pancreas Panel: No Data to Display Thyroid Panel: No Data to Display Infectious Disease: No Data to Display Blood Cultures: No Data to Display Toxicology Panel: No Data to Display Anesthesia Assessment and Plan Anesthesia History Personal History: No History of Anesthesia Complications Family History: No Family History of Anesthesia Complications Exercise Tolerance Exercise Tolerance: Metabolic Equivalents>4 Pertinent Negatives Pertinent Negatives: No Symptoms of GERD, No Major Cardiovascular Symptoms or Complaints, No Major Pulmonary Symptoms or Complaints and No History of CVA/TIA Cardiac & Pulmonary Exam Cardiac Exam: Normal S1/S2 Heart Sounds Pulmonary Exam: Clear Bilateral Breath Sounds Implantable Cardiac Device Does patient have a Pacemaker or an ICD?: No Airway Exam Known Difficult Airway: No Mallampati Class: 1 Mouth Opening: Normal (> 3cm) Thyromental Distance: Greater than 3 cm Neck Range of Motion: Full ROM Neck Circumference: Thick Teeth Condition: Edentulous (Remains of some. Roken teeth at gumline) ASA Classification ASA Score: ASA 3 Emergency Case?: No NPO Status NPO Status: NPO Clears >2 hours, Solids >8 hours Anesthesia Plan Resuscitation Status: Full Code Anesthesia Technique: General Anesthesia Airway Planned: LMA Monitors Used: Standard Monitors
--- NOTE | 2022-08-20 07:37 | W.PREOPHP ---
Assessment and Plan Assessment and plan (1) Fibrosis of right knee joint: Status: Acute Assessment and plan: Emily is a 57-year-old female who is status post right knee replacement who continues to have stiffness and pain about the right knee. Her limited motion has not improved with other nonoperative options including manipulation. Therefore, I offered arthroscopic synovectomy with manipulation. Please the previous office note for complete detailed history about this problem. She is here today for that procedure. She has no active medical issues. I reviewed the technical details of arthroscopic synovectomy. I discussed the risk of the procedure to include bleeding, infection, pain, continued stiffness, swelling, blood clot. Despite these risk, she elects to proceed. History of Present Illness History of Present Illness Chief Complaint: Right Knee Stiffness and Pain Narrative: Emily is a 57-year-old who is status post right knee replacement. Unfortunate, she has had continued stiffness and some pain with her range of motion. Please see the previous office note for complete detailed history. However, she has continued to have struggles with her stiffness and with pain. Therefore, I did offer synovectomy performed arthroscopically. She denies any other changes to her medical history. She has been working on her swelling of the knee which she feels is now down to her normal size with compression and with lymph tissue massage. She has no chest pain or shortness of breath. Review of Systems All systems reviewed & are unremarkable except as noted in HPI and below PFSH All Active Problems Chronic iron deficiency anemia (Acute) Normal colonoscopy (Acute) Hot flashes (Acute) Weight gain (Acute) 40lbs in [id number]. Hormone replacement therapy (HRT) (Acute) 10/2020. 0.5mg/2.5mg. 12/2020. 1mg/5mg 01/25/21. 1.5/5mg. History of total right knee replacement (TKR) (Acute 02/06/21) Adhesive capsulitis of right shoulder (Acute) Fibrosis of right knee joint (Acute) S/P Manipulation: 04/27/2021 Dysfunction of right rotator cuff (Acute) Migraine headache without aura (Acute) Medical History Abdominal pain Abnormal abdominal MRI Abnormal findings on diagnostic imaging of other abdominal regions, including retroperitoneum Adhesive capsulitis of left shoulder associated with type 2 diabetes mellitus (04/07/17) Anemia chronic headaches Community acquired pneumonia Degenerative disc disease, lumbar Depression Encounter for counseling regarding contraception Fatigue Fibromyalgia Ganglion cyst Knee pain, right Low back pain Low blood sugar Lumbar disc disease Migraine 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 denies this Narcotic abuse Pt. denies this Pain in left shoulder Pernicious anemia Personality disorder Pt. denies this post trauma stress disorder Per pt. requests when waking up for nobody to touch her neck- Preventative health care Primary fibromyalgia syndrome Tension headache Vitamin D deficiency Wrist pain Surgical History section twice Cholecystectomy De Quervain's tenosynovitis, right s/p DeQuervain's release DOS: 10/26/2020 Endoscopic Carpal Tunnel release bilateral H/O radiofrequency ablation (RFA) of nerve of lumbar spine L3-L5, S1 bilateral; July 2022 S/P gastric bypass Synovial cyst of right wrist s/p excision DOS: 11/14/20 Family History Mother No problems noted. Father Alzheimer's disease Other Cancer Social History Smoking/Tobacco Use Status: Never Smoking risk assessment performed?: Yes Alcohol Intake: current Alcohol Intake frequency: holidays/special occasions only Alcohol type: hard liquor Drug use: Never Substance use type: does not use Household members: spouse, children and other Details: Sobia-Jess Adorno 13yo, Humphrey 17yo. 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 Graduated [employer]. 2 bachelors, high honors. 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 amenorrhea after Mirena IUD removed. ) History History 6 Para 5 Hx # Term Pregnancies 5 Multiple births Hx # Pregnancies Ectopic pregnancies AB induced Hx Number of Living Children 5 AB spontaneous 1 Meds Allergies and Home Medications Allergies Allergy/AdvReac Type Severity Reaction Status Date / Time amitriptyline Allergy Verified 08/20/22 07:33 hydromorphone Allergy Verified 08/20/22 07:33 [id number] Antimigraine Allergy Verified 08/20/22 07:33 Agents diazepam AdvReac Severe VOMITING Verified 08/20/22 07:33 Penicillins AdvReac Severe Skin Rash, Verified 08/20/22 07:33 yeast infection prochlorperazine AdvReac Severe PANICK Verified 08/20/22 07:33 [Prochlorperazine] ATTACKS zolpidem [Zolpidem] AdvReac Intermediate SLEEP Verified 08/20/22 07:33 WALKING AND TALKING clonazepam [From Klonopin] AdvReac Mild NOT Verified 08/20/22 07:33 EFFECTIVE Home Medications Medication Instructions Recorded Confirmed Type bupropion HCl 100 mg tablet,12 hr 150 mg PO HS 04/26/14 08/19/22 History sustained-release (Wellbutrin SR) lamotrigine 100 mg tablet 150 mg PO DAILY 04/26/14 08/19/22 History (Lamictal) cholecalciferol (vitamin D3) 25 25 mcg PO DAILY 08/31/19 08/19/22 History mcg (1,000 unit) tablet ferrous sulfate 325 mg (65 mg 325 mg PO DAILY 09/22/19 08/19/22 History iron) tablet bupropion HCl 300 mg 24 hr tablet, 300 mg PO QAM 10/26/20 08/19/22 History extended release (Wellbutrin XL) magnesium oxide 250 mg PO DAILY 11/27/21 08/19/22 History brexpiprazole 1 mg tablet (Rexulti) 1 mg PO HS 12/11/21 08/19/22 History diclofenac potassium 50 mg tablet 50 mg PO BID PRN 12/11/21 08/19/22 History lamotrigine 100 mg tablet 100 mg PO HS 12/11/21 08/19/22 History alprazolam 1 mg tablet (Xanax) 1 mg PO QHS 05/23/22 08/19/22 History melatonin 3 mg capsule 3 mg PO HS PRN 06/17/22 08/19/22 History topiramate 25 mg tablet (Topamax) 25 mg PO DAILY #90 tabs 07/09/22 08/19/22 Rx liraglutide 0.6 mg/0.1 mL (18 mg/3 1.8 mg subcut DAILY 08/19/22 08/19/22 History mL) subcutaneous pen injector (Victoza 2-Shawn) topiramate 100 mg tablet (Topamax) 100 mg PO DAILY 08/19/22 08/20/22 History naproxen 500 mg tablet 500 mg PO PRN PRN 08/20/22 08/20/22 History vitamin B12 2,500 mcg-folic acid 1 tab PO DAILY 08/20/22 08/20/22 History 400 mcg disintegrating tablet Exam Const General: cooperative, healthy appearing, comfortable and no acute distress Resp Effort & Inspection: normal respiratory effort Auscultation: clear to auscultation bilaterally Cardio Rate: regular rate Rhythm: regular rhythm
[2022-08-20] MEDS: Acetaminophen 500 MG TAB 1000 MG PO (07:54)
[2022-08-20] MEDS: Celecoxib 200 MG CAP 400 MG PO (07:54)
--- NOTE | 2022-08-20 08:10 | W.ANESPRE ---
General Info Date of Service Date Performed: 08/20/22 Height: 5 ft 2.5 in Weight: 115.666 kg Body Mass Index (BMI): 45.8 Surgical Procedure: Operation Date: 08/20/22 09:25 Proposed Procedure Side Surgeon p Knee Arthroscopy Synovectomy Right Rickie Vázquez MD s Knee Manipulation Right Rickie Vázquez MD Meds Allergies and Home Medications Allergies Allergy/AdvReac Type Severity Reaction Status Date / Time amitriptyline Allergy Verified 08/20/22 07:33 hydromorphone Allergy Verified 08/20/22 07:33 [id number] Antimigraine Allergy Verified 08/20/22 07:33 Agents diazepam AdvReac Severe VOMITING Verified 08/20/22 07:33 Penicillins AdvReac Severe Skin Rash, Verified 08/20/22 07:33 yeast infection prochlorperazine AdvReac Severe PANICK Verified 08/20/22 07:33 [Prochlorperazine] ATTACKS zolpidem [Zolpidem] AdvReac Intermediate SLEEP Verified 08/20/22 07:33 WALKING AND TALKING clonazepam [From Klonopin] AdvReac Mild NOT Verified 08/20/22 07:33 EFFECTIVE Home Medication Medication Instructions Recorded bupropion HCl 100 mg tablet,12 hr 150 mg PO HS 04/26/14 sustained-release (Wellbutrin SR) lamotrigine 100 mg tablet 150 mg PO DAILY 04/26/14 (Lamictal) cholecalciferol (vitamin D3) 25 25 mcg PO DAILY 08/31/19 mcg (1,000 unit) tablet ferrous sulfate 325 mg (65 mg 325 mg PO DAILY 09/22/19 iron) tablet bupropion HCl 300 mg 24 hr tablet, 300 mg PO QAM 10/26/20 extended release (Wellbutrin XL) magnesium oxide 250 mg PO DAILY 11/27/21 brexpiprazole 1 mg tablet (Rexulti) 1 mg PO HS 12/11/21 diclofenac potassium 50 mg tablet 50 mg PO BID PRN 12/11/21 lamotrigine 100 mg tablet 100 mg PO HS 12/11/21 alprazolam 1 mg tablet (Xanax) 1 mg PO QHS 05/23/22 melatonin 3 mg capsule 3 mg PO HS PRN 06/17/22 topiramate 25 mg tablet (Topamax) 25 mg PO DAILY #90 tabs 07/09/22 liraglutide 0.6 mg/0.1 mL (18 mg/3 1.8 mg subcut DAILY 08/19/22 mL) subcutaneous pen injector (Victoza 2-Shawn) topiramate 100 mg tablet (Topamax) 100 mg PO DAILY 08/19/22 naproxen 500 mg tablet 500 mg PO PRN PRN 08/20/22 vitamin B12 2,500 mcg-folic acid 1 tab PO DAILY 08/20/22 400 mcg disintegrating tablet Current Visit Medications: Current Medications Generic Name Dose Route Start Last Admin Trade Name Freq PRN Reason Stop Dose Admin Acetaminophen 1,000 mg 08/20/22 06:00 08/20/22 07:54 Acetaminophen 500 Mg Tab PO 08/20/22 16:00 1,000 mg PREOP NORMA Administration Hydrocodone Bitart/Acetaminophen 0 tab 08/20/22 07:23 Hydrocodone 5/Acetaminophen 325 Tab PO 09/19/22 07:22 Q3H PRN PRN Pain Celecoxib 400 mg 08/20/22 06:00 08/20/22 07:54 Celecoxib 200 Mg Cap PO 08/20/22 16:00 400 mg PREOP NORMA Administration Ringer's Solution 1,000 mls @ 80 mls/hr 08/20/22 06:00 IV 08/20/22 23:59 INFUSION NORMA Cefazolin Sodium 3,000 mg/ 100 mls @ 200 mls/hr 08/20/22 06:00 Sodium Chloride IV 08/20/22 16:00 PREOP NORMA Ondansetron HCl 4 mg/ Sodium 52 mls @ 200 mls/hr 08/20/22 07:23 Chloride IVPB 09/19/22 07:22 Q6H PRN PRN IV Miscellaneous Supplies 1 each 08/20/22 06:00 Iv Access IV 08/20/22 23:59 DIRECTED NORMA Sodium Chloride 0 ml 08/20/22 06:00 Normal Saline Flush 10 Ml Syr IV 08/20/22 23:59 PRN PRN Sodium Chloride 0 ml 08/20/22 06:00 Normal Saline 10 Ml Vial IJ 08/20/22 23:59 DIRECTED PRN Sterile Water 0 ml 08/20/22 06:00 Water,Injection,Sterile 10 Ml Vial IJ 08/20/22 23:59 DIRECTED PRN PFS Active Problems Active Problems: Problem Status Onset Code Chronic iron deficiency anemia D50.9 Normal colonoscopy Hot flashes R23.2 Weight gain R63.5 Hormone replacement therapy (HRT) Z79.890 History of total right knee replacement (TKR) 02/06/21 Z96.651 Adhesive capsulitis of right shoulder M75.01 Fibrosis of right knee joint M24.661 Dysfunction of right rotator cuff M67.911 Migraine headache without aura G43.009 Medical History Medical History Abdominal pain Abnormal abdominal MRI Abnormal findings on diagnostic imaging of other abdominal regions, including retroperitoneum Adhesive capsulitis of left shoulder associated with type 2 diabetes mellitus (04/07/17) Anemia chronic headaches Community acquired pneumonia Degenerative disc disease, lumbar Depression Encounter for counseling regarding contraception Fatigue Fibromyalgia Ganglion cyst Knee pain, right Low back pain Low blood sugar Lumbar disc disease Migraine 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 denies this Narcotic abuse Pt. denies this Pain in left shoulder Pernicious anemia Personality disorder Pt. denies this post trauma stress disorder Per pt. requests when waking up for nobody to touch her neck- Preventative health care Primary fibromyalgia syndrome Tension headache Vitamin D deficiency Wrist pain Medical History Comments:: PTSD-please do touch neck waking; pt reports if waking from anesthesia in flat position she has N/V have occurred; please elevate HOB Surgical History Surgical History section twice Cholecystectomy De Quervain's tenosynovitis, right s/p DeQuervain's release DOS: 10/26/2020 Endoscopic Carpal Tunnel release bilateral H/O radiofrequency ablation (RFA) of nerve of lumbar spine L3-L5, S1 bilateral; July 2022 S/P gastric bypass Synovial cyst of right wrist s/p excision DOS: 11/14/20 Tobacco Smoking/Tobacco Use Status: Never Alcohol Alcohol Intake: current Alcohol intake frequency: holidays/special occasions only Alcohol type: hard liquor Substance Use Substance use: Never Substance use type: does not use Details: pt uses a marijuana pen occasionally. last use about a two weeks ago Prental History History 6 Para 5 Hx # Term Pregnancies 5 Multiple births Hx # Pregnancies Ectopic pregnancies AB induced Hx Number of Living Children 5 AB spontaneous 1 Vital Signs and Lab Results Vital Signs Most Recent Vital Signs in EMR: Most Recent Vital Signs Temp Pulse Resp BP Pulse Ox 36.7 C 85 20 134/91 H 97 08/20/22 07:18 08/20/22 07:18 08/20/22 07:18 08/20/22 07:18 08/20/22 07:18 Lab Results Blood Type / Crossmatch: No Data to Display Complete Blood Count: No Data to Display Complete Metabolic Panel: No Data to Display Liver Function Panel: No Data to Display Coagulation Panel: No Data to Display Cardiac Panel: No Data to Display Arterial Blood Gas: No Data to Display Venous Blood Gas: No Data to Display Pancreas Panel: No Data to Display Thyroid Panel: No Data to Display Infectious Disease: No Data to Display Blood Cultures: No Data to Display Toxicology Panel: No Data to Display Anesthesia Assessment and Plan Anesthesia History Personal History: No History of Anesthesia Complications Family History: No Family History of Anesthesia Complications Exercise Tolerance Exercise Tolerance: Metabolic Equivalents>4 Cardiac & Pulmonary Exam Cardiac Exam: Normal S1/S2 Heart Sounds Pulmonary Exam: Clear Bilateral Breath Sounds Implantable Cardiac Device Does patient have a Pacemaker or an ICD?: No Airway Exam Known Difficult Airway: No Mallampati Class: 1 Mouth Opening: Normal (> 3cm) Thyromental Distance: Greater than 3 cm Neck Range of Motion: Full ROM Neck Circumference: Thick Teeth Condition: Edentulous (Remains of some. Roken teeth at gumline) ASA Classification ASA Score: ASA 3 Emergency Case?: No NPO Status NPO Status: NPO Clears >2 hours, Solids >8 hours Anesthesia Plan Resuscitation Status: Full Code Anesthesia Technique: General Anesthesia Airway Planned: Endotracheal Tube Monitors Used: Standard Monitors
[2022-08-20] MEDS: Lactated Ringers 1,000 ML 80 ML IV (08:20)
[2022-08-20] MEDS: ceFAZolin 3,000 MG in Normal Saline 100 ML 200 MG IV (09:08)
--- NOTE | 2022-08-20 09:28 | W.PM.DSUDISC ---
Date of service: 08/20/22 Time of Service: 09:34 Discharge Plan Disposition Patient Disposition: Home Condition: Good Discharge Details Reason For Visit: Arthrofibrosis of right TKA Attending Provider: Rickie Vázquez Primary Care Provider: Marquita Cochran Home Meds and New Rx's Prescriptions: New acetaminophen 500 mg tablet 500 mg PO Q6H PRN (Reason: pain) Qty: 60 2RF hydrocodone-acetaminophen 5-325 mg tablet 1 tab PO Q6H PRN (Reason: severe pain) Qty: 6 0RF Rx Instructions: Take one tablet up to every 6 hours as needed for severe postoperative pain ibuprofen 600 mg tablet 600 mg PO TID PRN (Reason: pain) Qty: 60 0RF Continued ferrous sulfate 325 mg (65 mg iron) tablet 325 mg PO DAILY diclofenac potassium 50 mg tablet 50 mg PO BID PRN Patient Comments: Pt states on average 2x month for migraines. topiramate [Topamax] 25 mg tablet 25 mg PO DAILY Qty: 90 3RF Rx Instructions: In addition to the 100 mg pm dose cholecalciferol (vitamin D3) 25 mcg (1,000 unit) Tablet 25 mcg PO DAILY lamotrigine 100 mg tablet 100 mg PO HS Rx Instructions: at hs Rexulti 1 mg tablet 1 mg PO HS Rx Instructions: 1 at HS bupropion HCl [Wellbutrin XL] 300 mg tablet extended release 24 hr 300 mg PO QAM alprazolam [Xanax] 1 mg tablet 1 mg PO QHS melatonin 3 mg capsule 3 mg PO HS PRN bupropion HCl [Wellbutrin SR] 100 MG tablet extended release 12 hr 150 mg PO HS lamotrigine [Lamictal] 100 MG tablet 150 mg PO DAILY Patient Comments: PT TAKES 150 MG AM AND 100 MG HS magnesium oxide 250 mg magnesium tablet 250 mg PO DAILY Victoza 2-Shawn 0.6 mg/0.1 mL (18 mg/3 mL) pen injector 1.8 mg SUBCUT DAILY topiramate [Topamax] 100 mg tablet 100 mg PO DAILY naproxen 500 mg tablet 500 mg PO PRN PRN Patient Comments: TAKE ONE TABLET BY MOUTH TWICE A DAY NEEDED FOR BACK PAIN WITH FOOD +DO NOT MIX WITH DICLOFENAC+ vitamin R31-gswkw acid 2,500-400 mcg Tablet,Disintegrating 1 tab PO DAILY Discharge Instructions Additional Instructions: Knee Manipulation Discharge Instructions Activity: You should begin moving as soon as possible. You may work on flexion but also equally maintain extension. You may bear weight as tolerated, using crutches only for support/comfort. You should apply ice to help with swelling and elevate when possible (especially in the first few days). Dressings: The knee dressing may come down after 48 hours. You may shower and get the wound wet at that time. You should keep the wounds covered with a bandaid until follow-up. Medications: - Recommend to take up to 1000mg of Acetaminophen (Tylenol) and 600mg of Ibuprofen (Advil) every 8 hours as needed. These larger strength tablets were called in but you also may use [id number]. - You have also been prescribed narcotics, Hydrocodone, to take just as needed for severe postoperative pain. Follow-up: 7-10 days Referrals: Rickie Vázquez MD [ [facility] STAFF PHYSICIAN] - Equipment/Supplies: Partial Weight Bearing Crutches Activity:: Elevate Remove Dressings/Wound Care:: 72 hours Shower/Bathe:: 72 hours Diet:: As Tolerated Discharge Orders Discharge Orders: Discharge Order (Routine); Ordered 08/20/22 Ordered By: Gracia Leos DS: Diagnosis Discharge Diagnosis (1) Fibrosis of right knee joint: Status: Acute
[2022-08-20] MEDS: EPINEPHrine 30 MG/30 ML VIAL 4 MG (10:03)
[2022-08-20] MEDS: Bupivacaine 0.5% Pres-Free 30 ML VIAL (10:04)
[2022-08-20] MEDS: fentaNYL 100 MCG/2 ML VIAL IVP ×2 (10:30→10:40)
[2022-08-20] MEDS: Scopolamine 1 MG/3 DAYS PATCH TD (10:32)
[2022-08-20] MEDS: HYDROcodone 5/Acetaminophen 325 TAB PO (11:14)
--- NOTE | 2022-08-20 11:49 | W.ANESPOSTOP ---
Postoperative Evaluation Date, Time and Location Date Performed: 08/20/22 Time Performed: 11:49 Patient Location: Day Surgery Unit Vital Signs Most Recent Imported Vital Signs: Most Recent Vital Signs Temp Pulse Resp BP Pulse Ox 36.8 C 72 16 135/77 97 08/20/22 11:03 08/20/22 11:03 08/20/22 11:03 08/20/22 11:03 08/20/22 11:03 Pain Score Most Recent Pain Score: Most Recent Pain Score Pain Level 5 08/20/22 11:03 Assessment Mental Status: Awake (Alert & Oriented to Patient Baseline) Airway and Respiratory Function: Patent airway with normal (patient baseline) respiratory exam Cardiovascular Function: Hemodynamically Stable Hydration Status: Adequately Hydrated Nausea & Vomiting: No Nausea or Vomiting Pain: Pt. Denies Any Pain Peripheral Nerve Block: Patient did not receive a nerve block
--- NOTE | 2022-08-20 12:44 | W.PM.OP ---
Date of service: 08/20/22 Time of Service: 10:00 Operative Note Operative Note DATE OF PROCEDURE: 08/20/22 PRE-OP DIAGNOSIS: Arthrofibrosis and Painful Right Knee Replacement POST-OP DIAGNOSIS: same PROCEDURE: Arthroscopic Synovectomy of 3 Compartments - Right Knee SURGEON: Rickie Vázquez ANESTHESIA TYPE: General LMA/ETT Refer to Anesthesia Record ESTIMATED BLOOD LOSS: 5 PATHOLOGY: none sent COMPLICATIONS: None Patient was transported to: PACU Patient's condition: stable Indications: I have seen Emily in clinic for symptoms of arthrofibrosis and pain of the knee following knee replacement surgery. Nonoperative measures were exhausted but disability due to lack of motion persisted. I discussed knee arthroscopy with synovectomy with the patient. I reviewed the risks of the procedure to include, but not limited to, bleeding, infection, pain, continued stiffness, recurrence, blood clot. Despite these risks, the patient elected to proceed. Findings: There were dense adhesions and scar tissue seen within the knee joint itself. There was thickened tissue laterally which was interfering with the articulation of the femur and the plastic but not necessarily interposed. An aggressive synovectomy of all 3 compartments was performed. Procedure Description: Emliy was greeted in the preoperative holding area where the correct side was identified and marked. The consent was reviewed with the patient and signed. The history and physical was updated. All questions were answered. She was taken back to the operating room. The patient was placed into the supine position on the operating room table. All bony prominences were well padded. Prophylactic antibiotics in the form of Cefazolin were administered. The right leg was then prepped with Chloraprep and draped in a standard fashion with stockinette and extremity drape. A timeout to confirm correct identity, side and site, procedure, allergies, anesthesia, and medical concerns was performed. The leg was placed into a pneumatic leg calixto, SPIDER2. A standard lateral portal was made at the lateral border of the patella tendon in line with the inferior pole of the patella, soft spot. The skin and deep tissue was incised sharply and the blunt trochar was inserted atraumatically. At this point had visualization of the femoral component. A superolateral portal was then established with spinal needle localization just superior and lateral to the patella. A knife was taken down through the skin and soft tissue to enter the knee joint. Starting in the superior compartment above the femoral component and anterior to the femur I released all scarring between the anterior femoral synovium and the overlying extensor mechanism. This was taken through all of any noticeable scar tissue until the superior patellar pouch was fully released and mobile. This resection was carried out mostly with electrocautery as well as shaver. Once this was released fully from lateral to medial superiorly I then continue working down the lateral gutter. All scar tissue in the lateral gutter was released so there is normal space and movement between the capsular tissues and the edge of the femoral component and femur. This was taken down through the lateral gutter such that I was able to identify the polyethylene to its posterior corner. Once again, all scar tissue in this area was resected so the polyethylene was easily visible and there is no interposed tissue in the back or the polyethylene was identified. I think continue to work anteriorly. To continue the synovectomy from the lateral compartment to the anterior compartment into the medial compartment, I placed a medial portal under spinal needle localization. Once this was in place it became another working portal and I continued the synovectomy through the anterior compartment to the medial compartment. Once again, I freed up the medial gutter so I was able to visualize the polyethylene from the anterior posterior margins. There is no interposed tissue after full synovectomy was performed. Adhesions between the capsule and the femur were released. This was continued up the medial gutter until it met up with the releases performed previously in the superior compartment. Any remnant scar tissue from around the patella was then removed with a shaver and electrocautery. The arthroscope was brought back into the suprapatellar pouch and the leg was in full extension. The knee was thoroughly irrigated with the arthroscopic fluid on high flow and pressure. Inflow was stopped and excess fluid was removed. The wounds were closed with 4-0 Nylon. 0.25% bupivacaine was injected around the portal sites and into the knee. The wounds were dressed with Xeroform, 4x4 gauze, ABD pad, Kerlix and an CHEL wrap. A cryo-cuff was applied. The patient tolerated the procedure well and was returned to the Same Day Surgery area in a stable condition suffering no known complication..
== END 2022-08-20 12:24 | disposition home or self-care (01) ==
PROVIDERS: PCP Nurse Practitioner Family; Visit Provider Student in an Organized Health Care Education/Training Program
PROC: (CPT 29870; principal; 2022-08-20 09:15)
PROC: (CPT 27570; 2022-08-20 09:15)
DX: T84.82XA Fibrosis due to internal orthopedic prosthetic devices, implants and grafts, initial encounter (principal); Z96.651 Presence of right artificial knee joint
CPT/HCPCS: 29876; J0690; J1100; J2405; J2704; J3010

== ENCOUNTER → 2022-09-02 09:55 | Outpatient (BNVA) | payer MEDICARE, SELFPAY | PROVIDERS: PCP Nurse Practitioner Family; Referring Provider Nurse Practitioner Family; Visit Provider Student in an Organized Health Care Education/Training Program | DX: Z47.89 Encounter for other orthopedic aftercare (principal); M24.661 Ankylosis, right knee ==

== ENCOUNTER → 2022-10-08 08:51 | Outpatient (BNVA) | payer MEDICARE, SELFPAY | PROVIDERS: PCP Nurse Practitioner Family; Referring Provider Nurse Practitioner Family; Visit Provider Nurse Practitioner Adult Health | DX: G43.009 Migraine without aura, not intractable, without status migrainosus (principal); F39 Unspecified mood [affective] disorder; M79.7 Fibromyalgia | CPT/HCPCS: 99213; 99214 ==

== ENCOUNTER 2022-12-02 11:59 | Outpatient (REF) | payer MEDICARE, SELFPAY ==
[2022-12-02 17:08] LABS: Anion Gap 11.3 mmol/L (3-11); BUN 12 mg/dL (7-18); CO2 23.7 mmol/L (21.0-32.0); CREATININE 1.2 mg/dL (0.55-1.02); Chloride 107 mmol/L (98-107); Estimated GFR 53.46 (mL/min/1.73m2); Glucose 111 mg/dL (74-106); Potassium 3.5 mmol/L (3.5-5.1); Sodium 142 mmol/L (136-145)
== END 2022-12-02 12:00 | disposition home or self-care (01) ==
LOC: NCHCN 11:59
PROVIDERS: PCP Nurse Practitioner Family; Visit Provider Nurse Practitioner Family
DX: Z51.81 Encounter for therapeutic drug level monitoring (principal)
CPT/HCPCS: 80048

== ENCOUNTER → 2022-12-24 08:27 | Outpatient (BNVA) | payer MEDICARE, SELFPAY | PROVIDERS: PCP Nurse Practitioner Family; Visit Provider Nurse Practitioner Adult Health | DX: G43.009 Migraine without aura, not intractable, without status migrainosus (principal); F39 Unspecified mood [affective] disorder; M79.7 Fibromyalgia; G47.9 Sleep disorder, unspecified | CPT/HCPCS: 99213 ==

== ENCOUNTER 2023-01-01 19:05 | Outpatient (REF) | payer MEDICARE, SELFPAY ==
[2023-01-01 16:02] LABS: HCT 41.5 % (36.0-46.0); HGB 13.3 g/dL (11.2-15.7); MCH 30.1 pg (27.0-33.0); MCV 94 fL (80-95); MPV 10.7 fL (8.0-11.0); Platelet Count 277 10^3/uL (130-400); RBC 4.42 10^6/uL (3.93-5.22); RDW 12.4 % (11.7-14.6); RDW-SD 43.2 fL; WBC 5.35 10^3/uL (4.4-10.8)
[2023-01-03 11:15] LABS: Lamotrigine 4.8 mcg/mL (3.0-15.0)
== END 2023-01-01 19:06 | disposition home or self-care (01) ==
LOC: NCHCN 19:05
PROVIDERS: PCP Nurse Practitioner Family; Visit Provider Nurse Practitioner Family
DX: Z51.81 Encounter for therapeutic drug level monitoring (principal)
CPT/HCPCS: 80175; 85027

== ENCOUNTER → 2023-05-29 09:57 | Outpatient (BNVA) | payer MEDICARE, SELFPAY | PROVIDERS: PCP Nurse Practitioner Family; Referring Provider Nurse Practitioner Family; Visit Provider Nurse Practitioner Adult Health | DX: G43.009 Migraine without aura, not intractable, without status migrainosus (principal) | CPT/HCPCS: 99213 ==

== ENCOUNTER → 2023-11-27 08:58 | Outpatient (BNVA) | payer MEDICARE, SELFPAY | PROVIDERS: PCP Nurse Practitioner Family; Visit Provider Nurse Practitioner Adult Health | DX: G43.009 Migraine without aura, not intractable, without status migrainosus (principal) | CPT/HCPCS: 99213 ==

== ENCOUNTER 2024-01-19 03:19 | Outpatient (CLI) | payer MEDICARE, SELFPAY ==
[2024-01-19 07:59] LABS: HCT 42.8 % (36.0-46.0); HGB 13.8 g/dL (11.2-15.7); MCH 31.6 pg (27.0-33.0); MCHC 32.2 % (32.0-36.0); MCV 98 fL (80-95); MPV 10.5 fL (8.0-11.0); Platelet Count 223 10^3/uL (130-400); RBC 4.37 10^6/uL (3.93-5.22); RDW 12.6 % (11.7-14.6); WBC 4.03 10^3/uL (4.4-10.8)
[2024-01-19 08:14] LABS: ALT 43 U/L (14-59); AST 17 U/L (15-37); Albumin 3.5 g/dL (3.4-5.0); Alkaline Phosphatase 128 U/L (46-116); Anion Gap 10.5 mmol/L (3-11); BUN 15 mg/dL (7-18); Bilirubin, Total 0.41 mg/dL (0.2-1.0); CO2 24.5 mmol/L (21.0-32.0); CREATININE 1.2 mg/dL (0.55-1.02); Calcium 8.7 mg/dL (8.5-10.1); Chloride 112 mmol/L (98-107); Estimated GFR 53.13 (mL/min/1.73m2); Glucose 124 mg/dL (74-106); Potassium 3.3 mmol/L (3.5-5.1); Sodium 147 mmol/L (136-145); Total Protein 6.9 g/dL (6.4-8.2)
[2024-01-21 16:53] LABS: Lamotrigine 1.9 mcg/mL (3.0-15.0)
== END 2024-01-19 03:20 | disposition home or self-care (01) ==
LOC: LBO 03:19
PROVIDERS: PCP Nurse Practitioner Family; Visit Provider Nurse Practitioner Family
DX: Z79.899 Other long term (current) drug therapy (principal)
CPT/HCPCS: 36415; 80053; 80175; 85027

== ENCOUNTER 2024-01-21 00:53 | Outpatient (CLI) | payer MEDICARE, SELFPAY ==
--- NOTE | 2024-01-21 07:00 | DI.MAMMO_ITS ---
Exam(s) MAMMO SCREENING EXAM: MAMMO SCREENING CLINICAL HISTORY: screening,z12.39 TECHNIQUE: Mammograms were interpreted according to the usual protocol including computer analysis w [employer] CAD system, tomosynthesis and C-view imaging. COMPARISON: 2017 through 2022 FINDINGS: The breasts are composed of scattered fibroglandular densities, Breast Density category B. No suspicious masses or suspicious microcalcifications are seen. No skin thickening or abnormal axillary lymph nodes are seen. There has been no significant change from prior exams. IMPRESSION: BI-RADS Category 1, Negative mammogram Yearly screening mammography is recommended. Breast Density - Category B, scattered fibroglandular densities. A negative radiographic report should not delay biopsy if a dominant or clinically suspicious mass is present. Up to ten percent of cancers are not identified on mammography. A negative report may reinforce clinical impression. Adenosis and dense breasts may obscure an underlying neoplasm. False positive reports average 6 to 10%. Patient will receive a letter notifying them of these results.
== END 2024-01-21 01:13 ==
LOC: DI 00:53
PROVIDERS: PCP Nurse Practitioner Family; Visit Provider Nurse Practitioner Family
DX: Z12.31 Encounter for screening mammogram for malignant neoplasm of breast (principal); R92.323 Mammographic fibroglandular density, bilateral breasts
CPT/HCPCS: 77063; 77067

== ENCOUNTER 2024-03-04 01:40 | Outpatient (CLI) | payer MEDICARE, SELFPAY ==
--- OUTSIDE RECORDS SUMMARY | 2024-03-04 01:56 | XMS_ITS | Encounter Summary ---
Author Organization [facility] Address [address] [place] [address] Care Team Providers Care Nurse Aide Name Role Phone Marquita Cochran TEXTILE SLITTING MACHINE OPERATOR Primary Care Provider Encounter Details Date Type Department Care Team (Late st Contact Info) Description 10/08/2019 Lab Requisition [facility] Pathology & Laboratory Medicine - [address] [address] Jayashree Mccord MD [address] [place], [place] [id number] Encounter for other general examination Social History Tobacco Use Types Packs/Day Years Used Date Smoking Tobacco: Never Assessed Comments Unknown Sex and Gender Information Value Date Recorded Sex Assigned at Not on file Legal Sex Female 18:45 EST Gender Identity Not on file Sexual Orientation Not on file documented as of this encounter Plan of Treatment Not on file documented as of this encounter Procedures Procedure Name Priority Date/Time Associated Diagnosis Comments SURGICAL PATHOLOGY Today 10/08/2019 10 :09 EDT Encounter for other general examination documented in this encounter Results * SURGICAL PATHOLOGY (10/08/2019 10:09 EDT) Final Diagnosis A. STOMACH, BIOPSY: - Gastric transitional mucosa with no significant diagnostic abnormality. - Negative for Helicobacter pylori microorganisms on H&E stained sections. 10/11/2019 14:27 EDT [facility] at 1427 Attestation By the signature below, the attending physician certifies that they have 1) personally conducted a gross and/or microscopic examination of the described specimen(s), and/or personally interpreted the results of laboratory testing of the described specimen(s), and 2) personally rendered or confirmed the above diagnosis. 10/11/2019 14:27 [facility] at 1427 Clinical History Anemia; colorectal screening 10/11/2019 14:27 EDT [facility] Gross Description A. Received in formalin labelled with proper patient identification (initials H, A) and gastric Bx are 2 fragments of pink tissue; each measuring 0.2 x 0.2 x 0.2 cm. The specimens are submitted entirely in A1. 10/08/2019 16:25 10/11/2019 14:27 EDT [facility] Scanned Images 10/11/2019 14:27 T [facility] Tissue ENTIRE STOMACH / Unknown 10/08/2019 10:09 EDT 10/08/2019 16:10 EDT us Jayashree Mccord MD PATHOLOGY ORDERABLES Final Resul t [facility] [address] [place] [address] documented in this encounter Visit Diagnoses Diagnosis Encounter for other general examination documented in this encounter Care Teams Nurse Aide Relationship Specialty Start Date End Date Marquita Cochran NP [address] [place] [address] PCP - General 10/08/19 documented as of this encounter
--- OUTSIDE RECORDS SUMMARY | 2024-03-04 01:56 | XMS_ITS | Clinical Summary ---
Author Organization [facility] Address [address] [place] [id number] Care Team Providers Care Grey Roll Worker Name Role Phone Marquita Cochran SCUBA INSTRUCTOR Primary Care Provider [phone] Social History Tobacco Use Types Packs/Day Years Used Date Smoking Tobacco: Never Assessed Interpersonal Safety Answer Date Record ed Physically Hurt Never 10/24/2019 Verbally Threaten Not on file 10/24/2019 Comments Unknown Sex and Gender Information Value Date Recorded Sex Assigned at Not on file Legal Sex Female 18:45 EST Gender Identity Not on file Sexual Orientation Not on file Plan of Treatment Health Maintenance Due Date Last Done Comments Hepatitis B Vaccine (1 of 3 - 19+ 3-dose series) 03/06 COVID-19 Vaccine ( season) 2023 Hepatitis C Screen Completed 06/30/2019 Procedures Procedure Name Priority Date/Time Associated Diagnosis Comments HEPATITIS C AB W REFLEX TO HCV RNA BY PCR Routine 06/30/2019 13:05 EDT from Last 3 Months or Most Recently Relevant to Health Maintenance Results * HEPATITIS C AB W REFLEX TO HCV RNA BY PCR (06/30/2019 13:05 EDT) Hep C Antibody Negative Negative 07/02/2019 10:04 EDT [facility] Blood VENOUS BLOOD / Unknown 06/30/2019 13:05 EDT 07/01/2019 15:52 EDT us Provider Unknown CHEMISTRY & BLOOD GAS ORDERA BLES Final Result [facility] [address] [place] [address] from Last 3 Months or Most Recently Relevant to Health Maintenance Insurance MEDICARE [employer] [place] Care Teams Grey Roll Worker Relationship Specialty Start Date End Date Marquita Cochran NP [address] [place] [phone] PCP - General 10/08/19
--- OUTSIDE RECORDS SUMMARY | 2024-03-04 01:56 | XMS_ITS | Encounter Summary ---
Author Organization [facility] Address [address] [place] [address] Care Team Providers Care Shellfish Checker Name Role Phone Unknown, Provider Primary Care Provider Marquita Kemp INDUSTRIAL WASTE INSPECTOR Primary Care Provider [phone] Encounter Details Date Type Department Care Team (Late st Contact Info) Description 07/15/2019 Lab Requisition [facility] Pathology & Laboratory Medicine - [address] [id number] Outr Resulting Lab, Provider Social History Tobacco Use Types Packs/Day Years [...] Procedure Name Priority Date/Time Associated Diagnosis Comments CHLAMYDIA/N. GONORRHOEAE AMPLIFIED NUCLEIC ACID Routine 07/14/2019 11:30 EDT documented in this encounter Results * CHLAMYDIA/N. GONORRHOEAE AMPLIFIED RNA (07/14/2019 11:30 EDT) Neisseria gonorrhoeae Result Negative Negative 07/16/2019 14:11 EDT [facility] Chlamydia trachomatis Result Negative Negative 07/16/2019 14:11 EDT [facility] Swab ENTIRE WALL OF CERVIX / Unknown 07/14/2019 11:30 EDT 07/15/2019 17:18 EDT us Provider Outr Resulting Lab MICROBIOLOGY - GENER AL ORDERABLES Final Result [facility] [address] [place] [address] documented in this encounter Visit Diagnoses Not on filedocumented in this encounter Care Teams Shellfish Checker Relationship Specialty Start Date End Date Unknown, Provider, PCP - General 09/08/08 10/07/19 Marquita Cochran NP [address] [place] [phone] PCP - General 10/08/19 documented as of this encounter
--- OUTSIDE RECORDS SUMMARY | 2024-03-04 01:56 | XMS_ITS | Encounter Summary ---
Author Organization [facility] Address [address] [place] [address] Care Team Providers Care Obstetrics Gyn Name Role Phone Unknown, Provider Primary Care Provider Unava ilable Encounter Details Date Type Department Care Team (Late st Contact Info) Description 06/04/2010 Results Only [facility] Services - [facility] ([facility] [address] [place], [place] [id number] Pauline Wick, [facility] [address] [place] [address] Social History Tobacco Use Types Packs/Day Years [...] Procedure Name Priority Date/Time Associated Diagnosis Comments CYTOPATHOLOGY Routine 06/04/2010 0:00 EDT documented in this encounter Results * CYTOPATHOLOGY (06/04/2010 0:00 EDT) Pathology Report: CYTOPATHOLOGY REPORT ? Reports generated via electronic interface contain original data; ? however they are lacking the format of the original report. ? Caution should be taken when reading/interpreti ng unformatted reports. ? Name: ? EMILY ROSENTHAL ? Accession #: ? [id number] ? : ? 1965 (Age: 45) ??F ?Collect Date: ? 06/04/2010 ? Location: ? [facility] ? Receive Date: ? 06/05/2010 ? Provider: ?PAULINE WICK NP ? Copy to: ? Specimen/Source: ?Pap Test, Cervix/Endocervix, ThinPrep Imaging System ? with manual evaluation ? Last Menstrual Period: ? 1 YEAR AGO ? Hormonal/Contracep tive Status: ? Intrauterine device: MIRENA ? Other: ? Additional clinical information: 1 Abn pap 15 years ago repeat pap normal ? SPECIMEN ADEQUACY ? Satisfactory for Evaluation ? - transformation zone component present ? GENERAL CATEGORIZATION ? Negative for Intraepithelial Lesion or Malignancy ? INTERPRETATION ? Shift in taj present suggestive of bacterial vaginosis. ? Document reviewed and electronically signed by: ? Hilda Anuj, CT(ASCP) ? Report Date: ??06/07/2010 13:12 ? End of Report ? [facility] 06/04/2010 06/05/2010 us Pauline Wick DOCUMENT ANALYST PATHOLOGY ORDERABLES Final Resu lt [facility] [address] [place] [address] documented in this encounter Visit Diagnoses Not on filedocumented in this encounter Care Teams Obstetrics Gyn Relationship Specialty Start Date End Date Unknown, Provider, PCP - General 09/08/08 10/07/19 documented as of this encounter
--- OUTSIDE RECORDS SUMMARY | 2024-03-04 01:56 | XMS_ITS | Clinical Summary ---
Author Organization [facility] Address [facility] [place] [address] Care Team Providers Care Assistant Sales Manager Name Role Phone Marquita Cochran CEDRIC Primary Care Provider [phone] Allergies Active Allergy Reactions Criticality Noted Date Comments Diazepam High CIS - Nausea/Vomiting Prochlorperazine CIS - panic reaction Zolpidem Tartrate Medium CIS - causes sleepwalking Medications Medication Sig Dispensed Refills Start Date End Date Status vitamin-iron fumarate-FA ( PLUS) 27-1 mg Tab tablet 1 Tablet(s), PO, Once daily 11/20/2007 Active b complex vitamins tablet 11/20/2007 Active buPROPion (WELLBUTRIN SR) 150 mg 12 hr tablet 11/20/2007 A ctive lamoTRIgine (LAMICTAL) 150 mg tablet 11/20/2007 Active lamoTRIgine (LAMICTAL) 100 mg tablet 11/20/2007 Active cyanocobalamin (VITAMIN B-12) 1,000 mcg tablet 1000 MCG = 1 Tablet(s), PO, 2x week 11/20/2007 Active Immunizations Name Administration Dates Next Due Influenza Vaccine, Whole 01/08/2005 Social History Tobacco Use Types Packs/Day Years Used Date Smoking Tobacco: Never Assessed Sex and Gender Information Value Date Recorded Sex Assigned at Not on file Gender Identity Not on file Sexual Orientation Not on file Plan of Treatment Health Maintenance Due Date Last Done Comments CT Colonography 1967 Colonoscopy 1967 Colorectal Cancer Screening 1965 FIT DNA 1967 FIT 1967 Sigmoidoscopy (10 year) with FIT yearly 1967 Sigmoidoscopy 1965 HIV screen 1985 Hepatitis C Screening 1985 Hepatitis B vaccine (0-59 yrs) (1) 1986 Tetanus/Diphtheria/Pertussis Vaccines (1 - Tdap) 03/06 HPV test 1997 PAP Smear 1997 Breast Cancer Share Decision Needed 2007 Breast Cancer screening 2007 Zoster vaccine (1 of 2) 2017 Advance Directive 2022 Covid-19 Vaccine (1 - season) 2023 Influenza (Flu) vaccine (1 o f 1 - Influenza standard series) 11/09/2023 01/08/2005 Care Teams Assistant Sales Manager Relationship Specialty Start Date End Date Marquita Cochran APRN PCP - General Family Medicine 07/14/19
--- OUTSIDE RECORDS SUMMARY | 2024-03-04 01:56 | XMS_ITS | Encounter Summary ---
Author Organization [facility] [place] [address] Care Team Providers Care Chute Greaser Name Role Phone Pauline Marin APRN Primary Care Provider [phone] Encounter Details Date Type Department Care Team (Late st Contact Info) Description 07/11/2019 Ancillary Procedure Radiology Library [facility] [place] [address] Marquita Cochran APRN [address] [place] [address] Social History Tobacco Use Types Packs/Day Years Used Date Smoking Tobacco: Never Assessed Sex and Gender Information Value Date Recorded Sex Assigned at Not on file Gender Identity Not on file Sexual Orientation Not on file documented as of this encounter Plan of Treatment Not on file documented as of this encounter Procedures Procedure Name Priority Date/Time Associated Diagnosis Comments FILM LIBRARY STORAGE ONLY CT ABDOMEN Routine 07/11/2019 12:00 AM EDT documented in this encounter Results * Film Library- Storage Only CT Abdomen (07/11/2019 12:00 AM EDT) Narrative [facility] - 07/21/2019 3:52 PM EDT This exam is auto-finalizing. It's purpose is for storage only. Marquita Cochran APRN IMG FILM LIBRARY ORD ERABLES [place], [place] documented in this encounter Visit Diagnoses Not on filedocumented in this encounter Care Teams Chute Greaser Relationship Specialty Start Date End Date Pauline Marin APRN PCP - General 01/30/10 07/13/19 documented as of this encounter
--- OUTSIDE RECORDS SUMMARY | 2024-03-04 01:56 | XMS_ITS | Encounter Summary ---
Author Organization [facility] Address [address] [place] [address] Care Team Providers Care Airport Screener Name Role Phone Unknown, Provider Primary Care Provider Unava ilable Encounter Details Date Type Department Care Team (Late st Contact Info) Description 09/07/2008 Orders Only [facility] Laboratory Services - [facility] [address] [place] [address] [phone] Vivi Jensen MD [address] [place] [address] [place], [place] Social History Tobacco Use Types Packs/Day Years [...] Priority Date/Time Associated Diagnosis Comments SURGICAL PATHOLOGY Routine 09/07/2008 0:00 EDT documented in this encounter Results * SURGICAL PATHOLOGY (09/07/2008 0:00 EDT) Pathology Report: SURGICAL PATHOLOGY REPORT ? Reports generated via electronic interface contain original data; ? however they are lacking the format of the original report. ? Caution should be taken when reading/interpreti ng unformatted reports. ? Name: ? ARIADNA, EMILY ? Accession #: ? [id number] ? : ? 1965 (Age: 43) ??F ? Collect Date: ? 09/07/2008 ? Location: ? [facility] ? Receive Date: ? 09/08/2008 ? Provider: VIVI JENSEN MD ? Copy to: MIKE WICK RECREATION ESTABLISHMENT MANAGER ? Final Pathologic Diagnosis: ? Uterine contents, evacuation: ? 1. ?Chorionic villi present. ? 2. ? Gestational endometrium present. ? 3. ? Placental site reaction. ? 4. ? No parts identified. ? Document reviewed and electronically signed by: ? Gayle Santiago MD ? Report ??Date: 09/13/2008 16:54 ? By the signature above, the attending physician certifies that he/she has ? personally conducted a gross and/or microscopic examination of the described ? specimens and rendered or confirmed the above diagnosis. ? Specimen(s) Received: ? Products of conception ? Clinical History: ? demise at 12+ wks; incomplete AB ? Gross Description: ? Received in normal saline labelled Ariadna, Emily and products of ? conception is a 10.0 x 9.5 x 2.5 cm aggregate of combined placental tissue, ? including villi and membranes, without grossly identifiable parts. ?? The villous tissue is light medina to red and generally unremarkable, while the ? membranes are slightly opaque and hyperemic. ??An umbilical cord is grossly identifiable and measures 3.5 cm in length by 0.2 cm in diameter. ? Strategic Accounts Manager sections are submitted as follows: ? BLOCK DOUGLAS ? A1 ?Decidua ? A2, A3 ?Placental tissue ? A4 ? membrane roll and umbilical cord segment ? (C. Mcilree)/ljn ? End of Report ? ELENA RUANO 09/07/2008 09/08/2008 16: 47 EDT us Vivi Jensen MD PATHOLOGY ORDERABLES Final Resu lt [facility] [address] [place] [address] documented in this encounter Visit Diagnoses Not on filedocumented in this encounter Care Teams Airport Screener Relationship Specialty Start Date End Date Unknown, Provider, PCP - General 09/08/08 10/07/19 documented as of this encounter
--- OUTSIDE RECORDS SUMMARY | 2024-03-04 01:56 | XMS_ITS | Encounter Summary ---
Author Organization [facility] Address [address] [place] [address] Care Team Providers Care Construction Site Manager Name Role Phone Marquita Cochran LITHOGRAPH PRESS OPERATOR Primary Care Provider [phone] Encounter Details Date Type Department Care Team ([facility] st Contact Info) Description 12/11/2021 Lab Requisition [facility] Pathology & Laboratory Medicine - [facility] [address] [place] [address] Marquita Cochran, LITHOGRAPH PRESS OPERATOR [address] [place] [phone] Encounter for other general examination Social History [...] Date/Time Associated Diagnosis Comments SURGICAL PATHOLOGY Today 12/11/2021 15 :00 EDT Encounter for other general examination documented in this encounter Results * SURGICAL PATHOLOGY (12/11/2021 15:00 EDT) Note to Patient The following pathology results have been interpreted by your pathologist and may be available to you before your health provider has had the opportunity to review them. Please allow time for your provider to receive these results and explore management options, if applicable. 12/13/2021 9:47 [facility] Final Diagnosis A. SKIN OF NECK, LEFT, SHAVE BIOPSY: - Melanocytic nevus, intradermal type. 12/13/2021 9:47 [facility] Attestation By the signature below, the attending physician certifies that they have 1) personally conducted a gross and/or microscopic examination of the described specimen(s), and/or personally interpreted the results of laboratory testing of the described specimen(s), and 2) personally rendered or confirmed the above diagnosis. 12/13/2021 9:47 [facility] at 0947 Microscopic Description Sections are of a papule with mild epidermal hyperplasia and hyperkeratosis. There is a proliferation of melanocytes within the dermis. The proliferation consists of nests, cords, and strands that diminish in size with descent into the dermis. The melanocytes are slightly enlarged but generally have round-oval nuclei and a moderate amount of cytoplasm. The melanocytes show cotton puller maturation. 12/13/2021 9:47 [facility] Clinical History Nevus removal L side of neck 12/13/2021 9:47 [facility] Gross Description A. Received in formalin labelled with proper patient identification (initials H, A) and L neck is a shave biopsy of zhang-brown skin (0.3 x 0.2 x 0.1 cm). The margin is inked blue and the tissue is submitted intact in A1. GABY SON(ASCP) 12/12/2021 8:18 12/13/2021 9:47 [facility] Performing Lab [facility] 12/13/2021 9:47 [facility] Scanned Images 12/13/2021 9:47 [facility] Tissue TISSUE SPECIMEN FROM SKIN / Unknown 12/11/2021 15:00 EDT 12/11/2021 21:58 EDT us Marquita Cochran NP PATHOLOGY ORDERABLES Final Resul t [facility] [address] [place] [address] documented in this encounter Visit Diagnoses Diagnosis Encounter for other general examination documented in this encounter Care Teams Construction Site Manager Relationship Specialty Start Date End Date Marquita Cochran, ANTHONY [address] [place] [address] PCP - General 10/08/19 documented as of this encounter
--- OUTSIDE RECORDS SUMMARY | 2024-03-04 01:56 | XMS_ITS | Encounter Summary ---
Author Organization [facility] [place] [address] Care Team Providers Care Cooking Instructor Name Role Phone Marquita Cochran APRN Primary Care Provider [phone] Encounter Details Date Type Department Care Team (Late st Contact Info) Description 07/16/2019 Ancillary Procedure Radiology Library at [facility] [place] [address] Marquita Cochran, CEDRIC [address] [place] [address] Social History Tobacco Use Types Packs/Day Years [...] Associated Diagnosis Comments FILM LIBRARY STORAGE ONLY MR ABDOMEN Routine 07/16/2019 12:00 AM EDT documented in this encounter Results * Film Library- Storage Only MR Abdomen (07/16/2019 12:00 AM EDT) Narrative MAYRA - 07/21/2019 3:51 PM EDT This exam is auto-finalizing. It's purpose is for storage only. Marquita Cochran APRN IMG FILM LIBRARY ORD ERABLES [place], [place] documented in this encounter Visit Diagnoses Not on filedocumented in this encounter Care Teams Cooking Instructor Relationship Specialty Start Date End Date Marquita Cochran APRN PCP - General Family Medicine 07/14/19 documented as of this encounter
--- OUTSIDE RECORDS SUMMARY | 2024-03-04 01:56 | XMS_ITS | Encounter Summary ---
Author Organization [facility] Address [address] [place] [address] Care Team Providers Care Clocksmith Name Role Phone Marquita Cochran WASTE COLLECTOR Primary Care Provider [phone] Encounter Details Date Type Department Care Team (Late st Contact Info) Description 09/07/2020 Lab Requisition [facility] Pathology & Laboratory Medicine - [address] [address] Outr Resulting Lab, Provider Social History Tobacco [...] Procedure Name Priority Date/Time Associated Diagnosis Comments ESTRADIOL, ADULTS Routine 09/06/2020 10: 35 EDT documented in this encounter Results * ESTRADIOL, ADULTS (09/06/2020 10:35 EDT) Estradiol 17 See Note pg/mL 09/07/2020 16:32 EDT [facility] Comment: NOTE: FEMALE REFERENCE RANGES: MENSTRUATING ? By cycle day relative to LH peak Follicular ?(-12 to -4 days) ??20-144 pg/mL Midcycle ?(-3 to +2 days) ?? 64-357 pg/mL Luteal ?(+4 t0 +12 days) ??56-214 pg/mL POSTMENOPAUSAL ?<32 pg/mL *Cross reactivity with Fulvestrant could lead to a falsely elevated estradiol result in patients treated with this drug. Blood VENOUS BLOOD / Unknown 09/06/2020 10:35 EDT 09/07/2020 15:49 EDT us Provider Outr Resulting Lab CHEMISTRY & BLOOD GA S ORDERABLES Final Result [facility] [address] [place] [address] documented in this encounter Visit Diagnoses Not on filedocumented in this encounter Care Teams Clocksmith Relationship Specialty Start Date End Date Marquita Cochran, ANTHONY [address] [place] [address] PCP - General 10/08/19 documented as of this encounter
--- OUTSIDE RECORDS SUMMARY | 2024-03-04 01:56 | XMS_ITS | Encounter Summary ---
Author Organization [facility] Address [address] [place] [address] Care Team Providers Care Maturity Checker Name Role Phone Unknown, Provider Primary Care Provider Unava ilable Encounter Details Date Type Department Care Team (Late st Contact Info) Description 05/13/2016 Results Only [facility] [phone] Pauline Wick, LABORER [facility] [address] [place], [place] [id number] Social History Tobacco Use Types Packs/Day Years [...] Procedure Name Priority Date/Time Associated Diagnosis Comments PAP TEST- RESULT ONLY Routine 05/13/2016 0:00 EST documented in this encounter Results * PAP TEST- RESULT ONLY (05/13/2016 0:00 EST) Pathology Report: CYTOPATHOLOGY REPORT Reports generated via electronic interface contain original data; however they are lacking the format of the original report. Caution should be taken when reading/interpreti ng unformatted reports. Name: ? EMILY ROSENTHAL ? Accession #: ? [id number] : ? 1965 (Age: 51) ??F ?Collect Date: ? 05/13/2016 Location: ? [facility] ? Receive Date: ? 05/15/2016 Provider: ?PAULINE WICK LABORER [facility] Copy to: ? Specimen/Source: ?Pap Test, Cervix/Endocervix, ThinPrep Imaging System with manual evaluation Last Menstrual Period: ? 6 years ago Hormonal/Contracep tive Status: ? Intrauterine device: Mirena Other: ? Design And Sales Consultant Clinical/Treatment Hx - None ? SPECIMEN ADEQUACY ? Satisfactory for Evaluation - transformation zone component present GENERAL CATEGORIZATION ? Negative for Intraepithelial Lesion or Malignancy ? Document reviewed and electronically signed by: ? ANIVAL Byers(ASCP) ? Report Date: ??05/17/2016 14:30 End of Report [facility] 05/13/2016 05/15/2016 us Pauline Wick NP PATHOLOGY ORDERABLES Final Resu lt [facility] [address] [place] [address] documented in this encounter Visit Diagnoses Not on filedocumented in this encounter Care Teams Maturity Checker Relationship Specialty Start Date End Date Unknown, Provider, PCP - General 09/08/08 10/07/19 documented as of this encounter
--- OUTSIDE RECORDS SUMMARY | 2024-03-04 01:56 | XMS_ITS | Encounter Summary ---
Author Organization [facility] Address [address] [place] [address] Care Team Providers Care Interpretative Dancer Name Role Phone Unknown, Provider Primary Care Provider Marquita Kemp RACK PULLER Primary Care Provider [phone] Encounter Details Date Type Department Care Team (Late st Contact Info) Description 10/05/2019 Lab Requisition [facility] Pathology & Laboratory Medicine - [address] [address] Outr Resulting Lab, Provider Social History Tobacco [...] Procedure Name Priority Date/Time Associated Diagnosis Comments DO NOT ORDER STANDALONE - BROAD COVID TEST Today 10/05/2019 11:23 EDT COVID-19 TESTING Routine 10/05/2019 11:2 3 EDT documented in this encounter Results * DO NOT ORDER STANDALONE - BROAD COVID TEST (10/05/2019 11:23 EDT) COVID-19 rt-PCR Result NEGATIVE Negative 10/07/2019 16:36 EDT [facility] Comment: 2019-novel Coronavirus (2019-nCoV) not detected by the qRT-PCR assay. Consider testing for other respiratory viruses or re-collecting for 2019-nCoV testing. Note: Optimum timing for peak viral levels during infections caused by 2019-nCoV have not been determined. Collection of multiple specimens from the same patient may be necessary to detect the virus. Limitations Positive results are indicative of active infection with SARS-CoV-2 but do not rule out bacterial infection or co-infection with other viruses. The agent detected may not be the definite cause of disease. In addition, detection of viral RNA may not indicate the presence of infectious virus or that SARS-CoV-2 is the causative agent for clinical symptoms. Negative results do not preclude SARS-CoV-2 infection and should not be used as the sole basis for patient management decisions. Negative results must be combined with clinical observations, patient history, and epidemiological information. False negative results may also occur if amplification inhibitors are present in the specimen or if inadequate numbers of organisms are present in the specimen. Optimum specimen types and timing for peak viral levels during infections caused by SARS-CoV-2 have not been fully determined. Collection of multiple specimens (types and time points) from the same patient may be necessary to detect the virus. The test was validated for use with upper respiratory specimens obtained via nasopharyngeal or oropharyngeal swabs in VTM, UTM, M4, M5, M6, saline, and MTM media. The performance of this test has not been established for other specimens. Specimens collected using other FDA recommended Specimen Collection Materials listed in the FDA COVID-19 [employer] communication (June 03, 2019) are processed with the caveat that they were not all validated for use with this test and the result must be interpreted in this context. Furthermore, a false negative results may occur if a specimen is improperly collected, transported or handled. If the virus mutates in the RT-PCR target region, SARS-CoV-2 may not be detected or may be detected less predictably. Inhibitors or other types of interference may produce a false negative result. An interference study evaluating the effect of common cold medications was not performed. This test is not FDA-cleared but its performance characteristics were established by our CLIA-certified, CAP-accredited, high complexity laboratory in accordance with CLIA regulations, College of [place] [employer] (CAP) guidelines (May 27, 2019), and FDA guidance (May 08, 2019). This test is only for use under the Food and Drug Administration's Emergency Use Authorization. Swab ENTIRE NASOPHARYNX / Unknown 10/05/2019 11:23 EDT 10/05/2019 15:45 EDT us Provider Outr Resulting Lab MICROBIOLOGY - GENER AL ORDERABLES Final Result [facility] [place], [place] * COVID-19 TESTING (10/05/2019 11:23 EDT) COVID-19 rt-PCR Result NEGATIVE Negative 10/07/2019 18:14 EDT [facility] Comment: 2019-novel Coronavirus (2019-nCoV) not detected by the qRT-PCR assay. Consider testing for other respiratory viruses or re-collecting for 2019-nCoV testing. Note: Optimum timing for peak viral levels during infections caused by 2019-nCoV have not been determined. Collection of multiple specimens from the same patient may be necessary to detect the virus. Limitations Positive results are indicative of active infection with SARS-CoV-2 but do not rule out bacterial infection or co-infection with other viruses. The agent detected may not be the definite cause of disease. In addition, detection of viral RNA may not indicate the presence of infectious virus or that SARS-CoV-2 is the causative agent for clinical symptoms. Negative results do not preclude SARS-CoV-2 infection and should not be used as the sole basis for patient management decisions. Negative results must be combined with clinical observations, patient history, and epidemiological information. False negative results may also occur if amplification inhibitors are present in the specimen or if inadequate numbers of organisms are present in the specimen. Optimum specimen types and timing for peak viral levels during infections caused by SARS-CoV-2 have not been fully determined. Collection of multiple specimens (types and time points) from the same patient may be necessary to detect the virus. The test was validated for use with upper respiratory specimens obtained via nasopharyngeal or oropharyngeal swabs in VTM, UTM, M4, M5, M6, saline, and MTM media. The performance of this test has not been established for other specimens. Specimens collected using other FDA recommended Specimen Collection Materials listed in the FDA COVID-19 [employer] communication (June 03, 2019) are processed with the caveat that they were not all validated for use with this test and the result must be interpreted in this context. Furthermore, a false negative results may occur if a specimen is improperly collected, transported or handled. If the virus mutates in the RT-PCR target region, SARS-CoV-2 may not be detected or may be detected less predictably. Inhibitors or other types of interference may produce a false negative result. An interference study evaluating the effect of common cold medications was not performed. This test is not FDA-cleared but its performance characteristics were established by our CLIA-certified, CAP-accredited, high complexity laboratory in accordance with CLIA regulations, [employer] of [place] [employer] (CAP) guidelines (May 27, 2019), and FDA guidance (May 08, 2019). This test is only for use under the Food and Drug Administration's Emergency Use Authorization. Performing Lab [facility] 10/07/2019 18:14 EDT [facility] Swab 10/05/2019 11:2 3 EDT 10/05/2019 15:45 EDT us Provider Outr Resulting Lab MICROBIOLOGY - GENER AL ORDERABLES Final Result [facility] [address] [place], [place] [id number] [place] [address] LABORATORY [place], [place] documented in this encounter Visit Diagnoses Not on filedocumented in this encounter Care Teams Interpretative Dancer Relationship Specialty Start Date End Date Unknown, Provider, PCP - General 09/08/08 10/07/19 Marquita Cochran, RACK PULLER [address] [place] [phone] PCP - General 10/08/19 documented as of this encounter
--- OUTSIDE RECORDS SUMMARY | 2024-03-04 01:56 | XMS_ITS | Encounter Summary ---
Author Organization [facility] Address [address] [place] [address] Care Team Providers Care Cupola Liner Name Role Phone Unknown, Provider Primary Care Provider Marquita Kemp NP Primary Care Provider [phone] Encounter Details Date Type Department Care Team (Late st Contact Info) Description 07/01/2019 Lab Requisition [facility] Pathology & Laboratory Medicine - [address] [address] Unknown, Provider, Social History Tobacco Use Types Packs/Day Years [...] RNA BY PCR Routine 06/30/2019 13:05 EDT documented in this encounter Results * HEPATITIS C AB W REFLEX TO HCV RNA BY PCR (06/30/2019 13:05 EDT) Hep C Antibody Negative Negative 07/02/2019 10:04 EDT [facility] Blood VENOUS BLOOD / Unknown 06/30/2019 13:05 EDT 07/01/2019 15:52 EDT us Provider Unknown CHEMISTRY & BLOOD GAS ORDERA BLES Final Result [facility] [address] [place] [address] documented in this encounter Visit Diagnoses Not on filedocumented in this encounter Care Teams Cupola Liner Relationship Specialty Start Date End Date Unknown, Provider, PCP - General 09/08/08 10/07/19 Marquita Cochran, INTEGRATION ARCHITECT [address] [place] [phone] PCP - General 10/08/19 documented as of this encounter
--- OUTSIDE RECORDS SUMMARY | 2024-03-04 01:56 | XMS_ITS | Encounter Summary ---
Author Organization [facility] [place] [address] Care Team Providers Care Education Coordinator Name Role Phone Marquita Cochran CEDRIC Primary Care Provider [phone] Encounter Details Date Type Department Care Team (Late st Contact Info) Description 09/30/2007 Orders Only Obstetrics [place] [address] [place] MD Social History Tobacco Use Types Packs/Day Years Used Date Smoking Tobacco: Never Assessed Sex and Gender Information Value Date Recorded Sex Assigned at Not on file Gender Identity Not on file Sexual Orientation Not on file documented as of this encounter Plan of Treatment Not on file documented as of this encounter Procedures Procedure Name Priority Date/Time Associated Diagnosis Comments SURGICAL PATHOLOGY REPORT Routine 10/01/2007 10:52 AM EDT documented in this encounter Results * Surgical Pathology Report (10/01/2007 10:52 AM EDT) Surgical Pathology Report [id number] ? Location: ; [facility]; A The signing pathologist has (i) examined the relevant preparation(s) for the specimen(s) and (ii) rendered or confirmed the diagnosis(es). . ?Pathology Surgical Pathology Final Report Clinical Information Specimen Submitted: A - Placenta Clinical History: Term spontaneous vaginal delivery, multiple medication exposure Clinical Diagnosis: Not provided Gross Description Labeled/Fixativ e: ? Labeled with the patient's name, fresh. Qty/Size/Weight : ?Two, 21.5 x 15.0 x 1.5 cm, 500 g. Tissue Description: ?? Single ovoid placenta. ?? Membranes: ? Marginal insertion, glistening, semitransparent , with ?greenish hue. ?? Cord: ?55.0 cm in length x 1.0 cm in average diameter; three ?vessels; paracentral insertion. ?? Surface: ? Smooth, red, with green tinge. ??No gross lesions. ?? Maternal Surface: ??Red, intact, with no focal lesions. ?? Parenchyma: ?The specimen is serially sectioned at 0.5-cm to ?1.0-cm intervals. ??Sections show no focal lesion. ?Homogeneous, red, spongy parenchyma. Sections/Proces sing: ??Sections are submitted as follows: ??(1) membrane ?roll, proximal and distal cord; (2) surface ?with parenchyma; (3) maternal surface with ?parenchyma. ??(R3) ??aje/NS Microscopic Description Slides reviewed, microscopic description not recorded. Diagnosis Third trimester placenta, cord and membranes: Early chorioamnioniti s, negative for funisitis. Meconium effect noted on the amnion. CR-0 10/05/07 KO 10/05/07 Verified by: ? Adelia Hendrix MD ?Pathologist ?(Electronic Signature) The attending pathologist whose signature appears on this report has reviewed all diagnostic slides and has edited the gross and/or microscopic portion of the report in rendering the final pathologic diagnosis. ISABELLE MELOLAURENCE 10/01/2007 10:5 2 AM EDT [place] Mc MD PATHOLOGY/CYTOLOGY O RDERABLES Performing Organization Address City/State/[facility] Co de Phone Number ISABELLE EVANS documented in this encounter Visit Diagnoses Not on filedocumented in this encounter Care Teams Education Coordinator Relationship Specialty Start Date End Date Marquita Cochran, SKIN TOGGLER PCP - General Family Medicine 07/14/19 documented as of this encounter
--- OUTSIDE RECORDS SUMMARY | 2024-03-04 01:56 | XMS_ITS | Encounter Summary ---
Author Organization [facility] Address [address] [place] [address] Care Team Providers Care Electric Meter Installer Name Role Phone Unknown, Provider Primary Care Provider Unava ilable Encounter Details Date Type Department Care Team ([facility] st Contact Info) Description 09/29/2018 Results Only [facility] [phone] Marquita Renee, INSPECTOR OF DREDGING [address] [place] [address] Social History Tobacco Use Types Packs/Day Years [...] Diagnosis Comments PAP TEST- RESULT ONLY Routine 09/29/2018 0:00 EDT documented in this encounter Results * PAP TEST- RESULT ONLY (09/29/2018 0:00 EDT) Pathology Report: CYTOPATHOLOGY REPORT Reports generated via electronic interface contain original data; however they are lacking the format of the original report. Caution should be taken when reading/interpreti ng unformatted reports. Name: ? EMILY ROSENTHAL ? Accession #: ? [id number] ? : ? 1965 (Age: 53) ??F ?Collect Date: ? 09/29/2018 ? Location: ? [facility] ? Receive Date: ? 10/01/2018 ? Provider: MARQUITA RENEE INSPECTOR OF DREDGING Copy to: ? Final Report SPECIMEN ADEQUACY ? Satisfactory for Evaluation - transformation zone component absent GENERAL CATEGORIZATION ? Negative for Intraepithelial Lesion or Malignancy INTERPRETATION ? Shift in taj present suggestive of bacterial vaginosis. Last Menstrual Period: 7YRS Hormonal/Contracep tive status: Intrauterine device Other: Additional clinical information: Z01.419 Specimen/Source: ??Pap Test, Cervix/Endocervix, ThinPrep Imaging System with manual evaluation Document reviewed and electronically signed by: ? Caitlin Coello, ANIVAL(ASCP) ? Report ??Date: 10/05/2018 15:38 HPV with Pap Test ? Date Ordered: ? 10/05/2018 ? Status: ?? Signed Out ?Date Complete: ? 10/06/2018 ? By: ??System Interface ? Date Reported: ? 10/06/2018 ? Interpretation RESULT: Negative for HPV. No E6 or E7 mRNA is detected from HPV types 16,18,31,33,35, 39,45,51,52,56,58, 59,66, and 68 by etl programmer mediated amplification. Comments Document reviewed and electronically signed by: ? System Interface ? Report date: 10/06/2018 By the signature above, the attending physician certifies that he/she has personally conducted a gross and/or microscopic examination of the described specimens and rendered or confirmed the above diagnosis. End of Report [facility] 09/29/2018 10/01/2018 us Marquita Renee NP PATHOLOGY ORDERABLES Final Resul t [facility] [address] [place] [address] documented in this encounter Visit Diagnoses Not on filedocumented in this encounter Care Teams Electric Meter Installer Relationship Specialty Start Date End Date Unknown, Provider, PCP - General 09/08/08 10/07/19 documented as of this encounter
--- OUTSIDE RECORDS SUMMARY | 2024-03-04 01:56 | XMS_ITS | Encounter Summary ---
Author Organization [facility] [place] [address] Care Team Providers Care Solvent Recoverer Name Role Phone Marquita Cochran APRN Primary Care Provider Encounter Details Date Type Department Care Team (Late st Contact Info) Description 02/10/2020 Orders Only Primary Care at [address] [phone] Sammie Benavidez APRN Social History Tobacco Use Types Packs/Day Years Used Date Smoking Tobacco: Never Assessed Sex and Gender Information Value Date Recorded Sex Assigned at Not on file Gender Identity Not on file Sexual Orientation Not on file documented as of this encounter Progress Notes * Isaias Howard RN - 02/10/2020 12:53 PM EST Called the pharmacy and cancelled both medications documented in this encounter Plan of Treatment Not on file documented as of this encounter Visit Diagnoses Not on filedocumented in this encounter Care Teams Solvent Recoverer Relationship Specialty Start Date End Date Marquita Cochran APRN PCP - General Family Medicine 07/14/19 documented as of this encounter
--- OUTSIDE RECORDS SUMMARY | 2024-03-04 01:56 | XMS_ITS | Referral Summary ---
Author Organization Health system Address [address] [place] [address] Care Team Providers Care Linseed Oil Temperer Name Role Phone Marquita Cochran SENIOR NATIONAL ACCOUNT MANAGER Primary Care Provider [phone] Social History Tobacco Use Types Packs/Day Years Used Date Smoking Tobacco: Never Assessed Interpersonal Safety Answer Date Record ed Physically Hurt Never 10/24/2019 Verbally Threaten Not on file 10/24/2019 Comments Unknown Sex and Gender Information Value Date Recorded Sex Assigned at Not on file Legal Sex Female 18:45 EST Gender Identity Not on file Sexual Orientation Not on file Plan of Treatment Not on file Procedures Procedure Name Priority Date/Time Associated Diagnosis Comments HEPATITIS C AB W REFLEX TO HCV RNA BY PCR Routine 06/30/2019 13:05 EDT from Last 3 Months or Most Recently Relevant to Health Maintenance Results * HEPATITIS C AB W REFLEX TO HCV RNA BY PCR (06/30/2019 13:05 EDT) Hep C Antibody Negative Negative 07/02/2019 10:04 EDT [facility] Blood VENOUS BLOOD / Unknown 06/30/2019 13:05 EDT 07/01/2019 15:52 EDT us Provider Unknown CHEMISTRY & BLOOD GAS ORDERA BLES Final Result [facility] [address] [place] [address] from Last 3 Months or Most Recently Relevant to Health Maintenance Insurance MEDICARE [employer] [place] Care Teams Linseed Oil Temperer Relationship Specialty Start Date End Date Marquita Cochran NP [address] [place] [phone] PCP - General 10/08/19
[2024-03-04 08:56] LABS: GGT 17 U/L (5-55); Sodium 146 mmol/L (136-145)
== END 2024-03-04 01:41 | disposition home or self-care (01) ==
LOC: LBO 01:41
PROVIDERS: PCP Nurse Practitioner Family; Visit Provider Nurse Practitioner Family
DX: R74.8 Abnormal levels of other serum enzymes (principal); E87.0 Hyperosmolality and hypernatremia
CPT/HCPCS: 36415; 82977; 84080; 84295

== ENCOUNTER → 2024-03-24 08:27 | Outpatient (BNVA) | payer MEDICARE, SELFPAY | PROVIDERS: PCP Nurse Practitioner Family; Referring Provider Nurse Practitioner Family; Visit Provider Nurse Practitioner Adult Health | DX: G43.009 Migraine without aura, not intractable, without status migrainosus (principal); E87.0 Hyperosmolality and hypernatremia | CPT/HCPCS: 99214 ==

== ENCOUNTER 2024-03-30 01:39 | Outpatient (CLI) | payer MEDICARE, SELFPAY ==
--- NOTE | 2024-03-30 07:00 | DI.RAD_ITS ---
Exam(s) XR PELVIS AP EXAM: XR PELVIS AP CLINICAL HISTORY: ? pagets,alkaline phosphatase elvation,R74.8. TECHNIQUE: 2D digital imaging was performed. COMPARISON: CR BILATERAL HIPS ADULT from 06/08/2009 FINDINGS: Single AP view of the pelvis-hips No evidence of pelvic nor hip fractures. Bone density normal. No osseous lesions. No obvious degen erative changes the hip joints. Sacroiliac joints appear unremarkable. There is now evidence of degenerative disc disease at the L4-5 and L5-S1 disc spaces, more so than pr evious. IMPRESSION: No acute osseous findings. Degenerative disc disease. DATA REPOSITORY: RADIATION DOSE DELIVERED:
== END 2024-03-30 01:59 ==
LOC: DI 01:39
PROVIDERS: PCP Nurse Practitioner Family; Visit Provider Nurse Practitioner Family
DX: R74.8 Abnormal levels of other serum enzymes (principal)
CPT/HCPCS: 72170

== ENCOUNTER 2024-04-01 03:49 | Outpatient (CLI) | payer MEDICARE, SELFPAY ==
[2024-04-01 10:10] LABS: Iron 68 ug/dL (50-170); Total Iron Binding Capacity 289 ug/dL (250-450); Transferrin Sat 24 % (15-50)
[2024-04-01 10:33] LABS: Calcium 9.2 mg/dL (8.5-10.1); Calculated LDL 107 mg/dL (<100); Cholesterol 203 mg/dL (<200); HDL Cholesterol 67 mg/dL (40-60); Sodium 144 mmol/L (136-145); TSH (W/Ref FT4) 5.84 uIU/mL (0.36-3.74); Triglyceride 148 mg/dL (<150); Vitamin D 25 Total 32.3 ng/mL (30-100)
[2024-04-01 10:56] LABS: FREE T4 0.76 ng/dL (0.76-1.46)
[2024-04-01 18:56] LABS: Parathyroid Hormone,Intact 50.9 pg/mL (19.0-88.0)
== END 2024-04-01 03:50 | disposition home or self-care (01) ==
PROVIDERS: PCP Nurse Practitioner Family; Visit Provider Nurse Practitioner Family
DX: R74.8 Abnormal levels of other serum enzymes (principal); E87.0 Hyperosmolality and hypernatremia; D50.9 Iron deficiency anemia, unspecified; F32.9 Major depressive disorder, single episode, unspecified; E55.9 Vitamin D deficiency, unspecified
CPT/HCPCS: 36415; 80061; 82306; 82310; 83540; 83550; 83970; 84100; 84295; 84439; 84443

== ENCOUNTER 2024-05-11 11:11 | Outpatient (REF) | payer MEDICARE, SELFPAY | END 2024-05-11 11:12 | disposition home or self-care (01) | LOC: LBN 11:11 | PROVIDERS: PCP Nurse Practitioner Family; Visit Provider Nurse Practitioner Family | DX: Z12.4 Encounter for screening for malignant neoplasm of cervix (principal); Z68.41 Body mass index [BMI] 40.0-44.9, adult | CPT/HCPCS: 88142; 87624 ==

== ENCOUNTER → 2024-05-12 08:20 | Outpatient (BNVA) | payer MEDICARE, SELFPAY | PROVIDERS: PCP Nurse Practitioner Family; Referring Provider Nurse Practitioner Family | DX: M70.61 Trochanteric bursitis, right hip (principal); M70.62 Trochanteric bursitis, left hip | CPT/HCPCS: 99213 ==

== ENCOUNTER → 2024-05-19 09:18 | Outpatient (BNVA) | payer MEDICARE, SELFPAY | PROVIDERS: PCP Nurse Practitioner Family; Visit Provider Nurse Practitioner Adult Health | DX: G43.009 Migraine without aura, not intractable, without status migrainosus (principal) | CPT/HCPCS: 99213 ==

== ENCOUNTER 2024-05-28 00:23 | Outpatient (CLI) | payer MEDICARE, SELFPAY ==
[2024-05-28 10:26] LABS: Alkaline Phosphatase 137 U/L (46-116); BUN 16 mg/dL (7-18); CREATININE 0.9 mg/dL (0.55-1.02); Calcium 8.8 mg/dL (8.5-10.1); Chloride 109 mmol/L (98-107); Estimated GFR 74.57 (mL/min/1.73m2); Glucose 74 mg/dL (74-106); Potassium 3.8 mmol/L (3.5-5.1); Sodium 146 mmol/L (136-145); TSH (W/Ref FT4) 3.11 uIU/mL (0.36-3.74)
== END 2024-05-28 00:24 | disposition home or self-care (01) ==
LOC: LBO 00:23
PROVIDERS: PCP Nurse Practitioner Family; Visit Provider Nurse Practitioner Family
DX: R79.89 Other specified abnormal findings of blood chemistry (principal); R74.8 Abnormal levels of other serum enzymes; E87.8 Other disorders of electrolyte and fluid balance, not elsewhere classified
CPT/HCPCS: 36415; 80048; 84075; 84443

== ENCOUNTER → 2024-07-12 08:37 | Outpatient (BNVA) | payer MEDICARE, SELFPAY | PROVIDERS: PCP Nurse Practitioner Family; Referring Provider Nurse Practitioner Family; Visit Provider Student in an Organized Health Care Education/Training Program | DX: M70.61 Trochanteric bursitis, right hip (principal); M70.62 Trochanteric bursitis, left hip | CPT/HCPCS: 20610; J1010 ==

== ENCOUNTER 2024-09-02 01:07 | Outpatient (CLI) | payer MEDICARE, SELFPAY ==
[2024-09-02 10:36] LABS: TSH (W/Ref FT4) 1.58 uIU/mL (0.36-3.74)
== END 2024-09-02 01:08 | disposition home or self-care (01) ==
LOC: LBO 01:08
PROVIDERS: PCP Nurse Practitioner Family; Visit Provider Nurse Practitioner Family
DX: E03.9 Hypothyroidism, unspecified (principal); R79.89 Other specified abnormal findings of blood chemistry
CPT/HCPCS: 84443

== ENCOUNTER 2024-09-13 02:53 | Outpatient (CLI) | payer MEDICARE, SELFPAY ==
--- NOTE | 2024-09-13 07:45 | DI.MRI_ITS ---
Exam(s) MR LUMBAR SPINE WO EXAM: MR LUMBAR SPINE WO CLINICAL HISTORY: LBP with rad to bilat lateral calves,lumbar radiculitis,m54.16. TECHNIQUE: Multiplanar multisequence MRI of the Lumbar spine was performed. COMPARISON: MR MR LUMBAR SPINE WO from 08/27/2019 CR XR PELVIS AP from 03/30/2024 FINDINGS: Bones: The last intervertebral disc space is designated the L5/S1 level for the numbering purpose of this examination. The vertebral body heights are well maintained. There are Schmorl's nodes at multiple levels. Alignment: Degenerative dextroscoliosis centered at L3. Marrow: Degenerative signal changes in the endplates from L2-3 through L5-S1. There are Modic type 2 at L2-3 and L5-S1 and on the left at L3-4. There are Modic type 1 changes on the left at L4-5. Cord: The conus tip ends at the T12 level. It is of normal size and signal intensity. T12-L1: No focal disc herniation is present. No central spinal canal stenosis.No neural foraminal stenosis. L1-2: No focal disc herniation is present. Severe narrowing of the disc space on the right with prominent endplate osteophytes projecting circumferentially, greater to the right. There are facet degenerative changes. There is mild central canal stenosis and mild right neural foraminal narrowing. L2-3: No focal disc herniation is present. Severe narrowing of the disc, greater on the left. There are prominent endplate osteophytes, greater on the left. There are facet degenerative changes, more prominent on the left. There is slight central canal stenosis. There is severe left neural foraminal narrowing. L3-4: No focal disc herniation is present. There is loss of disc height, eccentric toward the left where there are prominent endplate osteophytes. Facet degenerative changes, greater on the left. Severe left neural foraminal narrowing. No significant central canal stenosis. L4-5: Severe loss of disc height, greater on the left. Small left paracentral disc herniation with superior extrusion of disc material posterior to the L4 vertebral body. Prominent endplate osteophytes. Facet degenerative changes and ligamentous hypertrophy combine with the disc osteophytes to produce moderate central canal stenosis. There is severe bilateral neural foraminal narrowing. L5-S1: No focal disc herniation is present. Severe loss of disc height. Prominent broad-based disc osteophytes. Facet degenerative changes. Mild central canal stenosis. Severe left and moderate right neural foraminal narrowing. The visualized SI joints and sacrum are unremarkable. Soft tissues: The paraspinal soft tissues are unremarkable. IMPRESSION: Extensive degenerative disc changes and facet degenerative changes cause multilevel neural foraminal narrowing, greatest on the left at at L2-3 through L4-5. Moderate central canal stenosis at L4-5 as well as small left paracentral disc extrusion at this level. DATA REPOSITORY:
== END 2024-09-13 03:13 ==
PROVIDERS: PCP Nurse Practitioner Family; Visit Provider Preventive Medicine Occupational Medicine
DX: M54.16 Radiculopathy, lumbar region (principal)
CPT/HCPCS: 72148

== ENCOUNTER 2024-10-12 10:04 | Outpatient (REF) | payer MEDICARE, SELFPAY | END 2024-10-12 10:05 | disposition home or self-care (01) | LOC: LBN 10:04 | PROVIDERS: PCP Nurse Practitioner Family; Visit Provider Nurse Practitioner Family | DX: R82.998 Other abnormal findings in urine (principal); R23.2 Flushing | CPT/HCPCS: 87077; 87086; 87186 ==

== ENCOUNTER 2024-10-12 12:44 | Outpatient (CLI) | payer MEDICARE, SELFPAY ==
[2024-10-12 13:16] LABS: HCT 39.0 % (36.0-46.0); HGB 13.1 g/dL (11.2-15.7); MCH 31.8 pg (27.0-33.0); MCHC 33.6 % (32.0-36.0); MCV 95 fL (80-95); MPV 10.2 fL (8.0-11.0); Platelet Count 251 10^3/uL (130-400); RBC 4.12 10^6/uL (3.93-5.22); RDW 12.5 % (11.7-14.6); RDW-SD 43.4 fL; WBC 8.91 10^3/uL (4.4-10.8)
[2024-10-12 13:49] LABS: C-Reactive Protein 0.79 mg/dL (<or=0.5); TSH (W/Ref FT4) 1.85 uIU/mL (0.36-3.74)
== END 2024-10-12 12:45 | disposition home or self-care (01) ==
LOC: LBO 12:46
PROVIDERS: PCP Nurse Practitioner Family; Visit Provider Nurse Practitioner Family
DX: E03.9 Hypothyroidism, unspecified (principal); R23.2 Flushing
CPT/HCPCS: 36415; 85027; 84443; 86140

== ENCOUNTER 2024-10-15 16:45 | Outpatient (CLI) | payer MEDICARE, SELFPAY ==
--- NOTE | 2024-10-15 16:45 | RT.EKG_ITS ---
APPROVED REPORT Exam: Resting ECG Reason for Exam: medicatgion management Patient Location: O HR:78 bpm ECG Measurements Heart Rate 78 AXIS KS 150 P 55 QRSd 90 QRS 53 QT 383 T 48 QTc 437 Conclusion Sinus rhythm...normal P axis, V-rate 50- 99 Normal Electrocardiogram
== END 2024-10-15 16:46 | disposition home or self-care (01) ==
LOC: DI.KIM 16:46
PROVIDERS: PCP Nurse Practitioner Family; Visit Provider Nurse Practitioner Family
DX: Z79.899 Other long term (current) drug therapy (principal)
CPT/HCPCS: 93010

== ENCOUNTER 2024-11-08 04:48 | Emergency (ER) | payer MEDICARE, SELFPAY ==
[2024-11-08] VITALS (20 sets, daily range): BP systolic 139–153; BP diastolic 78–81; PULSE 72–87; RESP 15–24; TEMP 36.6; O2SAT 93–98
--- NOTE | 2024-11-08 04:45 | RT.EKG_ITS ---
APPROVED REPORT Exam: Resting ECG Reason for Exam: Short of breath Patient Location: E HR:81 bpm ECG Measurements Heart Rate 81 AXIS CO 165 P 50 QRSd 84 QRS 46 QT 405 T 38 QTc 470 Conclusion Sinus rhythm...normal P axis, V-rate 60- [address] changes compared to 10/15/2024, may be lead related.
--- NOTE | 2024-11-08 05:04 | W.ED.GENAD ---
Discharge Plan Disposition Patient Disposition: Home Condition: Stable Discharge Details Clinical Impression: Acute dyspnea Primary Care Provider: Marquita Cochran ED Provider: Jennifer Thomas Home Meds and New Rx's Prescriptions: Continued ferrous sulfate 325 mg (65 mg iron) tablet 325 mg PO DAILY bupropion HCl 150 mg tablet extended release 24 hr 150 mg PO DAILY bupropion HCl [Wellbutrin XL] 300 mg tablet extended release 24 hr 300 mg PO DAILY lamotrigine 150 mg tablet 150 mg PO DAILY Rx Instructions: Take with the 100 mg tablet for a total of 250 mg daily lamotrigine 100 mg tablet 100 mg PO DAILY Rx Instructions: Take with the 150 mg tablet for a total of 250 mg daily cholecalciferol (vitamin D3) 50 mcg (2,000 unit) capsule 50 mcg PO DAILY magnesium oxide 250 mg magnesium tablet 250 mg PO DAILY buspirone 7.5 mg tablet 7.5 mg PO ONCE Rx Instructions: Takes once daily with extra tablet as needed in the afternoon Wegovy 0.25 mg/0.5 mL pen injector 0.25 mg subcut QWEEK 28 Days Qty: 2 12RF Rx Instructions: Inject 0.25 mg subcutaneously once weekly as directed. nitrofurantoin macrocrystal 100 mg capsule 100 mg PO BID Qty: 10 0RF Rx Instructions: must administer with a meal/food pregabalin [Lyrica] 75 mg capsule 75 mg PO BID Qty: 60 1RF Rexulti 1 mg tablet 1 mg PO HS Rx Instructions: 1 at HS alprazolam [Xanax] 1 mg tablet 1 mg PO QHS melatonin 3 mg capsule 3 mg PO HS PRN cholecalciferol (vitamin D3) 1,250 mcg (50,000 unit) capsule 1,250 mcg PO QWEEK Qty: 10 0RF naproxen 500 mg tablet 500 mg PO PRN PRN (Reason: pain) Qty: 60 3RF Emgality Pen 120 mg/mL pen injector 120 mg subcut QMONTH Qty: 1 11RF levothyroxine 25 mcg tablet 25 mcg PO DAILY Qty: 90 3RF Wegovy 0.25 mg/0.5 mL pen injector 0.25 mg subcut QWEEK Qty: 2 0RF Rx Instructions: administer weeks 1 through 4 of therapy phentermine 37.5 mg capsule 37.5 mg PO DAILY 30 Days Qty: 30 2RF Rx Instructions: Take one 37.5 mg capsule 30 minutes before or 1-2 hours after breakfast. vitamin [id number] acid 2,500-400 mcg Tablet,Disintegrating 1 tab PO DAILY acetaminophen 500 mg tablet 500 mg PO Q6H PRN (Reason: pain) Qty: 60 2RF Discharge Instructions Instructions: Shortness of Breath, Adult ED Additional Instructions: your tests today are reassuring please follow-up with your doctor tomorrow take it easy today, drink regular fluids please return should you develop chest pain, worsening shortness of breath, or should any new concerns arise Referrals: Marquita Cochran APRN [Primary Care Provider, Family Practice] Discharge Data Discharge Date/Time-TO BE ENTERED AT DEPARTURE: 11/08/24 10:30 HPI <Jaron Leger MD - Last Filed: 11/08/24 22:59> General Mode of arrival: ambulatory. Date/Time Provider Initiated Documentation: 11/08/24 05:04. Limitations to Documentation: no limitations. Information obtained by: patient, RN notes reviewed and old records reviewed. HPI Narrative: Patient presents to ED after waking up and feeling shortness of breath. She reports little bit of a sore throat yesterday but otherwise felt perfectly fine when she went to bed. She woke up this morning to go to the bathroom and became short of breath. She complains of chest tightness but not pain. She has a little bit worsening of her sore throat but no difficulty swallowing. Does not have any pain radiating into the back. Denies abdominal pain, nausea, vomiting. Denies cough or fever. Denies any neurologic change. Does report that breathing seems better but she still feels some shortness of breath. Related Data Home Medications ?Medication ?Instructions ?Recorded ?Confirmed ferrous sulfate 325 mg (65 mg 325 mg PO DAILY 09/22/19 11/08/24 iron) tablet brexpiprazole 1 mg tablet (Rexulti) 1 mg PO HS 12/11/21 11/08/24 alprazolam 1 mg tablet (Xanax) 1 mg PO QHS 05/23/22 11/08/24 melatonin 3 mg capsule 3 mg PO HS PRN 06/17/22 11/08/24 acetaminophen 500 mg tablet 500 mg PO Q6H PRN pain #60 tabs 08/20/22 11/08/24 vitamin B12 2,500 mcg-folic acid 1 tab PO DAILY 08/20/22 11/08/24 400 mcg disintegrating tablet bupropion HCl 150 mg 24 hr tablet, 150 mg PO DAILY 09/10/23 11/08/24 extended release bupropion HCl 300 mg 24 hr tablet, 300 mg PO DAILY 09/10/23 11/08/24 extended release (Wellbutrin XL) lamotrigine 100 mg tablet 100 mg PO DAILY 09/10/23 11/08/24 lamotrigine 150 mg tablet 150 mg PO DAILY 09/10/23 11/08/24 cholecalciferol (vitamin D3) 50 50 mcg PO DAILY 05/19/24 11/08/24 mcg (2,000 unit) capsule magnesium oxide 250 mg PO DAILY 05/19/24 11/08/24 cholecalciferol (vitamin D3) 1,250 1,250 mcg PO QWEEK #10 caps 06/08/24 11/08/24 mcg (50,000 unit) capsule buspirone 7.5 mg tablet 7.5 mg PO ONCE 09/06/24 11/08/24 naproxen 500 mg tablet 500 mg PO PRN PRN pain #60 tabs 09/16/24 11/08/24 galcanezumab-gnlm 120 mg/mL 120 mg subcut QMONTH #1 mL 09/29/24 11/08/24 subcutaneous pen injector (Emgality Pen) levothyroxine 25 mcg tablet 25 mcg PO DAILY #90 tabs 10/12/24 11/08/24 nitrofurantoin macrocrystal 100 mg 100 mg PO BID uti #10 caps 10/15/24 11/08/24 capsule pregabalin 75 mg capsule (Lyrica) 75 mg PO BID #60 caps 10/22/24 11/08/24 semaglutide (weight loss) 0.25 0.25 mg (0.5 mL) subcut QWEEK 28 11/01/24 11/08/24 mg/0.5 mL subcutaneous pen days #2 mL injector (Wegovy) phentermine 37.5 mg capsule 37.5 mg PO DAILY 30 days #30 caps 11/02/24 11/08/24 semaglutide (weight loss) 0.25 0.25 mg (0.5 mL) subcut QWEEK #2 mL 11/02/24 11/08/24 mg/0.5 mL subcutaneous pen injector (Wegovy) Previous Rx's ?Medication ?Instructions ?Recorded acetaminophen 500 mg tablet 500 mg PO Q6H PRN pain #60 tabs 08/20/22 cholecalciferol (vitamin D3) 1,250 1,250 mcg PO QWEEK #10 caps 06/08/24 mcg (50,000 unit) capsule naproxen 500 mg tablet 500 mg PO PRN PRN pain #60 tabs 09/16/24 galcanezumab-gnlm 120 mg/mL 120 mg subcut QMONTH #1 mL 09/29/24 subcutaneous pen injector (Emgality Pen) levothyroxine 25 mcg tablet 25 mcg PO DAILY #90 tabs 10/12/24 nitrofurantoin macrocrystal 100 mg 100 mg PO BID uti #10 caps 10/15/24 capsule pregabalin 75 mg capsule (Lyrica) 75 mg PO BID #60 caps 10/22/24 semaglutide (weight loss) 0.25 0.25 mg (0.5 mL) subcut QWEEK 28 11/01/24 mg/0.5 mL subcutaneous pen days #2 mL injector (Wegovy) phentermine 37.5 mg capsule 37.5 mg PO DAILY 30 days #30 caps 11/02/24 semaglutide (weight loss) 0.25 0.25 mg (0.5 mL) subcut QWEEK #2 mL 11/02/24 mg/0.5 mL subcutaneous pen injector (Wegovy) Allergies Allergy/AdvReac Type Severity Reaction Status Date / Time amitriptyline Allergy Other (See Verified 11/08/24 05:03 Comment) hydromorphone Allergy Other (See Verified 11/08/24 05:03 Comment) [id number] Antimigraine Allergy Other (See Verified 11/08/24 05:03 Agents Comment) diazepam AdvReac Severe VOMITING Verified 11/08/24 05:03 Penicillins AdvReac Severe Skin Rash, Verified 11/08/24 05:03 yeast infection prochlorperazine AdvReac Severe PANICK Verified 11/08/24 05:03 (Prochlorperazine) ATTACKS zolpidem (Zolpidem) AdvReac Intermediate SLEEP Verified 11/08/24 05:03 WALKING AND TALKING clonazepam (From Klonopin) AdvReac Mild NOT Verified 11/08/24 05:03 EFFECTIVE General Stated Complaint: SOB/SuddenOnset NEELA: 3 Exam <Jaron Leger MD - Last Filed: 11/08/24 22:59> Narrative Exam Narrative: Const: Obese female in NAD. VS per triage. HEENT: NC/AT. Normal facial exam. OP is clear without erythema, edema, exudate. Neck: Supple. Trachea midline. Lungs: Normal respiratory effort. Lungs are clear. Cor: RRR without murmur. Good radial pulses. GI: Soft/ND/NT. Neuro: A+O x 3. Normal speech, mentation, gait. Cranial nerves II - XII grossly intact. No gross motor or sensory deficit. Ext: No C/C/E. No calf tenderness. Course <Jaron Leger MD - Last Filed: 11/08/24 22:59> Vital Signs Vital signs: Vital Signs Temperature 97.9 F 11/08/24 04:54 Pulse 76 11/08/24 04:54 Respiratory Rate 24 11/08/24 04:54 Blood Pressure 149/78 H 11/08/24 04:54 Pulse Oximetry 98 11/08/24 04:54 Temperature 97.9 F 11/08/24 04:54 Temperature Source Oral 11/08/24 04:54 Pulse 76 11/08/24 04:54 Respiratory Rate 24 11/08/24 04:54 Blood Pressure 149/78 H 11/08/24 04:54 Blood Pressure Position Sitting 11/08/24 04:54 Pulse Oximetry 98 11/08/24 04:54 Oxygen Delivery Method Room Air 11/08/24 04:54 Oxygen Flow Rate 0 11/08/24 04:54 Pain Level 2 11/08/24 04:54 Medical Decision Making <Jaron Leger MD - Last Filed: 11/08/24 22:59> Patient presents to ED with complaint of shortness of breath sudden onset this morning after getting up to go to the bathroom. Describes chest tightness but no pain. Reports slight sore throat yesterday that is maybe a little worse today but denies any fever, cough, other URI symptoms. Does feel like her breathing is better now but still feels short of breath. An EKG obtained on arrival is sinus rhythm with some nonspecific ST changes/flattening compared to recent EKG that may be more lead placement related than anything. In any event there is no acute ST changes. Differential does include possibility of ACS, PE, pneumonia. IV established and laboratory studies obtained including troponin and D-dimer. Chest imaging will depend on results of D-dimer. Patient appears comfortable with normal saturations on room air. Patient's laboratory studies with a white count of 3.9 which is mildly neutropenic. Hemoglobin and platelets are normal. VBG is normal. BMP and electrolytes normal except for slightly low potassium at 3.4. Initial troponin negative. D-dimer positive and CTA chest ordered. Patient has had no change in her status or vitals. Second troponin remains normal and flat. CTA and third troponin pending. Patient discussed with and signed out to GABY Thomas to follow-up on results and disposition patient. LB: [id number] patient was accepted in signout pending CTA and repeat troponin. Repeat troponin and CTA do not show acute abnormality, patient was ambulatory and did not have hypoxia as she is feeling marked improvement in fact the dyspnea is completely resolved. Did consider coronary artery disease, infectious etiology, pulmonary embolism, pneumothorax, none of these were demonstrated on today's assessment. Patient is hemodynamically stable and safe for discharge home with close outpatient follow-up with her doctor and encouraged to follow-up within the next 24 hours for reassessment possible outpatient additional imaging at her PCPs discretion. Given the threshold to return should she have new or worsening complaints oxygenation 96% on room air no respiratory distress Lab Data Lab results reviewed: Yes I reviewed the patient's lab results. Lab results narrative: see [facility] ECG Data Attestation: I personally reviewed and interpreted this ECG (s) as follows: Prior ECG tracings: available for review Interpretation: see MDM/EKG <GABY Baumann - Last Filed: 11/08/24 16:08> LB: [id number] patient was accepted in signout pending CTA and repeat troponin. Repeat troponin and CTA do not show acute abnormality, patient was ambulatory and did not have hypoxia as she is feeling marked improvement in fact the dyspnea is completely resolved. Did consider coronary artery disease, infectious etiology, pulmonary embolism, pneumothorax, none of these were demonstrated on today's assessment. Patient is hemodynamically stable and safe for discharge home with close outpatient follow-up with her doctor and encouraged to follow-up within the next 24 hours for reassessment possible outpatient additional imaging at her PCPs discretion. Given the threshold to return should she have new or worsening complaints oxygenation 96% on room air no respiratory distress PFSH <Jaron Leger MD - Last Filed: 11/08/24 22:59> All Active Problems (Updated 11/08/24 @ 10:20 by GABY Baumann) Acute dyspnea (Acute) Lumbago with sciatica, left side (Acute) Lumbago with sciatica, right side (Acute) Central stenosis of spinal canal (Acute) Lumbar radiculitis (Acute) Hypothyroid (Chronic) Trochanteric bursitis of both hips (Acute) Bilateral steroid injection: 07/12/24 Greater trochanteric bursitis of right hip (Acute) Hip pain, right (Acute) Right tennis elbow (Acute) High sodium levels (Acute) Alkaline phosphatase elevation (Acute) History of opioid abuse (Acute) Menopause present (Acute) Pain, joint, shoulder, left (Acute) Body mass index 40.0-44.9, adult (Acute) Therapeutic drug monitoring (Acute) Hx of bariatric surgery (Acute) Disorder of spinal region (Acute) Intervertebral disc disorder (Acute) Post traumatic stress disorder (Acute) Major depression (Chronic) Melanocytic nevus (Acute) Migraine headache without aura (Acute) Dysfunction of right rotator cuff (Acute) Fibrosis of right knee joint (Acute) S/P Arthroscopic Synovectomy: 08/20/2022 S/P Manipulation: 04/27/2021 Adhesive capsulitis of right shoulder (Acute) History of total right knee replacement (TKR) (Acute 02/06/21) Hot flashes (Acute) Chronic iron deficiency anemia (Acute) Medical History (Updated 11/08/24 @ 10:20 by GABY Baumann) Hormone replacement therapy (HRT) 10/2020. 0.5mg/2.5mg. 12/2020. 1mg/5mg 01/25/21. 1.5/5mg. Elevated TSH Breast cancer screening Medication management Normal colonoscopy Right wrist pain Pain, joint, knee, right Opioid abuse Weight gain 40lbs in [id number]. Lumbar disc disease Fibromyalgia Abnormal abdominal MRI Anemia Low blood sugar Ganglion cyst Vitamin D deficiency Knee pain, right Wrist pain Tension headache Adhesive capsulitis of left shoulder associated with type 2 diabetes mellitus (04/07/17) Migraine Degenerative disc disease, lumbar Narcotic abuse Pt. denies this 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 denies this Personality disorder Pt. denies this Preventative health care Encounter for counseling regarding contraception Community acquired pneumonia Pain in left shoulder Fatigue Low back pain Abdominal pain Abnormal findings on diagnostic imaging of other abdominal regions, including retroperitoneum post trauma stress disorder Per pt. requests when waking up for nobody to touch her neck- chronic headaches Primary fibromyalgia syndrome Depression Pernicious anemia Surgical History H/O radiofrequency ablation (RFA) of nerve of lumbar spine L3-L5, S1 bilateral; July 2022 Synovial cyst of right wrist s/p excision DOS: 11/14/20 De Quervain's tenosynovitis, right s/p DeQuervain's release DOS: 10/26/2020 S/P gastric bypass Endoscopic Carpal Tunnel release bilateral Cholecystectomy section twice Family History Mother Breast cancer Depression Father Alzheimer's disease Maternal Grandmother Hypertension Diabetes Heart disease Maternal Grandfather Heart disease Sister Breast cancer Other Cancer Social History Smoking/Tobacco Use Status: Former Tobacco Use tobacco type: cigarettes Tobacco: How many years used: 3 Second Hand Exposure: No Smoking risk assessment performed?: Yes Alcohol Intake: current Alcohol Intake frequency: a few times a month Alcohol type: hard liquor Drug use: Never Substance use type: does not use and marijuana Details: pt uses a marijuana pen occasionally. last use about a two weeks ago Adopted: Yes Caregiver/Support person: No Foster care: No Household members: spouse, children and other Details: Sobia-Jess Adorno 13yo, Victor Hugo-Montse 15yo. 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 Graduated [employer]. 2 bachelors, high honors. 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 Pets and animals: Yes (1) Pets and animals: cat(s) Sexually active: Yes Do you think of yourself as: straight/heterosexual Current gender identity: female What is your relationship status?: How often do you talk on the phone with friends or family?: three or more times per week How often do you get together with friends or relatives?: once per week Do you belong to any clubs or organized social groups?: yes Panel score (0-1 are the most socially isolated patients): 3 What type of physical activity do you participate in: none Lucia/Buddhist: Other Special lucia needs: No Seatbelt use: always Helmet use: Yes Drive intox or ride w/intox bung driver: No Do you feel safe at home: Yes Do you feel safe in your relationship?: Yes Female Reproductive History Menstrual Menopause type: natural (2013. amenorrhea after Mirena IUD removed. ) History History 6 Para 5 Hx # Term Pregnancies 5 Multiple births Hx # Pregnancies Ectopic pregnancies AB induced Hx Number of Living Children 5 AB spontaneous 1
[2024-11-08 05:41] LABS: BE (Venous) 2 mmol/L (-2-3); HCO3 (Venous) 28 mmol/L (23-28); O2 Sat (Venous) 68 %; TCO2 (Venous) 25 mmol/L (24-29); pCO2 (Venous) 48 mmHg (41-51); pO2 (Venous) 36 mmHg
[2024-11-08 05:42] LABS: Abs Immature Grans 0.00 10^3/uL (0.0-0.06); HCT 38.5 % (36.0-46.0); HGB 12.5 g/dL (11.2-15.7); Immature Grans % 0.0 %; MCH 30.7 pg (27.0-33.0); MCHC 32.5 % (32.0-36.0); MCV 95 fL (80-95); MPV 10.1 fL (8.0-11.0); Platelet Count 204 10^3/uL (130-400); RBC 4.07 10^6/uL (3.93-5.22); RDW 12.5 % (11.7-14.6); RDW-SD 43.5 fL; WBC 3.91 10^3/uL (4.4-10.8)
[2024-11-08 06:04] LABS: Anion Gap 8.0 mmol/L (3-11); BUN 11 mg/dL (7-18); CO2 30.0 mmol/L (21.0-32.0); Calcium 8.5 mg/dL (8.5-10.1); Chloride 107 mmol/L (98-107); Estimated GFR 65.71 (mL/min/1.73m2); Glucose 103 mg/dL (74-106); Magnesium 1.8 mg/dL (1.8-2.4); Potassium 3.4 mmol/L (3.5-5.1); Sodium 145 mmol/L (136-145); Troponin I 8 ng/L (<or=51)
[2024-11-08 06:09] LABS: D-Dimer 626 ng/mlFEU (<500)
--- NOTE | 2024-11-08 06:15 | DI.CT_ITS ---
Exam(s) CT CHEST PE CTA EXAM: CT CHEST PE CTA CLINICAL HISTORY: SOB w + ddimer. TECHNIQUE: Imaging Protocol: Axial CT angiography was performed with multi- slice acquisition and multi-planar and/or 3D reconstructions. Lung Computer Aided Detection (CAD) was utilized. CONTRAST MATERIAL: Intravenous: Omnipaque 350 contrast volume:90 mL COMPARISON: No exams were available for comparison FINDINGS: Tracheobronchial tree: Patent where visualized. No bronchiectasis. Pulmonary parenchyma: There is a small ground-glass infiltrate in the right upper lobe. There is dependent atelectasis in the lung bases bilaterally. No architectural distortion. Pulmonary Arteries: Within the limits of the examination, no pulmonary emboli are seen. There is suboptimal opacification of the peripheral pulmonary arteries. Mediastinum and Marli: No dominant adenopathy or fluid collection. The esophagus is unremarkable. Visualized thyroid gland: Unremarkable. Pleura: No effusion or pneumothorax. Heart: The heart is not dilated. No coronary artery calcifications are seen. No pericardial effusion. Aorta: Thoracic aorta non-dilated. No evidence of dissection. Upper abdomen: Status post cholecystectomy. There is been prior gastric surgery. Soft tissues: Unremarkable. Bones: Within normal limits for the patient's age. IMPRESSION: 1. Within the limits of the examination, no pulmonary emboli are seen. If there is continued clinical concern, a repeat examination may be obtained. 2. There is no evidence of thoracic aortic aneurysm or dissection. 3. Ground-glass infiltrate in the right upper lobe. This may represent an early pneumonia. Please correlate clinically. 4. The preliminary [facility] report was reviewed. Unexpected findings RADIATION DOSE DELIVERED: 564.34mGy.cm Total DLP DATA REPOSITORY: All CT scans at this facility are submitted to the National Radiology Data Registry (NRDR) Dose Index Registry (DIR) with the [employer] (ACR). RADIATION OPTIMIZATION: All CT scans at this facility use at least one of these dose optimization techniques: automated exposure control; mA and/or kV adjustment per patient size (includes targeted exams where dose is matched to clinical indication); or iterative reconstruction.
[2024-11-08 06:53] LABS: Troponin I 8 ng/L (<or=51)
[2024-11-08] MEDS: Normal Saline - Diluent 50 ML VIAL IJ (07:19)
[2024-11-08] MEDS: Omnipaque 350 MG/ML 100 ML BTL IJ (07:20)
[2024-11-08] MEDS: Normal Saline Flush 10 ML SYR IVP (07:20)
--- NOTE | 2024-11-08 08:29 | DI.[facility]_ITS ---
PROCEDURE INFORMATION: Exam: CTA Chest With Contrast Exam date and time: 11/08/2024 7:08 AM Age: 59 years old Clinical indication: Other: SOB w + ddimer TECHNIQUE: Imaging protocol: Computed tomographic angiography of the chest with contrast. Exam focused on the arteries. 3D rendering (Not supervised by radiologist): MIP and/or 3D reconstructed images were created by the technologist. Contrast material: OMNIPAQUE 350; Contrast volume: 90 ml; Contrast route: INTRAVENOUS (IV); COMPARISON: CR XR PORTABLE CHEST AP 02/10/2022 4:30 PM FINDINGS: Pulmonary arteries: No evidence of pulmonary embolus to the segmental level. Aorta: No aneurysm of the aorta. No dissection of the aorta. Celiac trunk and mesenteric arteries: Stenosis at the origin of the celiac artery Lungs: Unremarkable. No consolidation. No masses. Pleural spaces: Unremarkable. No pneumothorax. No pleural effusion. Heart: Unremarkable. No cardiomegaly. No pericardial effusion. Lymph nodes: Unremarkable. No enlarged lymph nodes. Gallbladder and biliary ducts: Cholecystectomy Stomach: Sutures in the stomach Intraperitoneal space: Surgical clips in the gastrohepatic ligament Bones/joints: Unremarkable. No acute fracture. Soft tissues: Unremarkable. IMPRESSION: 1. No evidence of pulmonary embolus to the segmental level. 2. No aneurysm of the aorta. 3. No dissection of the aorta. Dictated and Authenticated by: Nghia Mora MD. Orderin Arsen Salmeron MD
[2024-11-08 08:54] LABS: Troponin I 8 ng/L (<or=51)
== END 2024-11-08 10:30 | disposition home or self-care (01) ==
PROVIDERS: Emergency Medicine; Emergency Provider Physician Assistant; PCP Nurse Practitioner Family
DX: R06.00 Dyspnea, unspecified (principal)
CPT/HCPCS: 99284; 99285; 36415; 71275; 80048; 82805; 93005; 83735; 84484; 85025; 85379; 87081; 93010; J3490

== ENCOUNTER 2024-11-11 12:42 | Outpatient (CLI) | payer MEDICARE, SELFPAY ==
[2024-11-11 12:49] VITALS: BP 139/87; PULSE 80; RESP 19; TEMP 36.6; O2SAT 96
[2024-11-11 13:16] VITALS: PULSE 80; PULSE 81; RESP 24; O2SAT 95
[2024-11-11 13:17] VITALS: BP 157/77; PULSE 83; PULSE 84; RESP 18; O2SAT 97
[2024-11-11 13:20] VITALS: PULSE 83; RESP 26; O2SAT 96
[2024-11-11 13:26] VITALS: BP 152/75; PULSE 79; PULSE 80; RESP 17; O2SAT 95
--- NOTE | 2024-11-11 13:27 | DI.RAD_ITS ---
Exam(s) XR PAIN CLINIC LUMBAR SP 2V EXAM: XR PAIN CLINIC LUMBAR SP 2V CLINICAL HISTORY: DX: Lumbar Radiculopathy. TECHNIQUE: Fluoroscopy was provided for the referring physician for guidance with performing pain clinic injection procedure. COMPARISON: No exams were available for comparison FINDINGS: Please see procedure note for details. Fluoro time: 26.8 seconds RADIATION DOSE DELIVERED: Ka,r=16.6 mGy
[2024-11-11] MEDS: Epidural Tray 1 EACH MC (13:31)
[2024-11-11] MEDS: Omnipaque 240 MG/ML 50 ML BTL IJ (13:31)
[2024-11-11] MEDS: methylPREDNISolone ACETATE 80 MG/ML VIAL IJ (13:32)
--- NOTE | 2024-11-11 13:34 | PDOC.PAIN ---
Date of service: 11/11/24 Time of Service: 13:34 Pain Managment Procedure Note Procedure Note Procedure Note: PROCEDURE NOTE LUMBAR EPIDURAL STEROID INJECTION Date of Service: November 11, 2024 Patient:Emily Law? Provider: Drake Simon DO, MPH Emily Tobin has been referred to the [facility] for a lumbar epidural steroid injection. Pre-operative diagnosis: Lumbosacral Radiculopathy ICD-10 M54.16 Post-operative diagnosis: Same Pre-Procedure Pain: VAS= 7 /10 Comments: I previously evaluated her in the office. Her symptoms are unchanged. Emily was interviewed and the medical record was reviewed.? There were no medical, pharmacologic, radiographic or other structural contraindications to attempting fluoroscopically guided Lumbar epidural steroid injection.? Risks, potential side effects, indications, and potential benefits of the procedure were reviewed with Emily.? Questions and concerns were addressed.? After it was clear that Emily was fully informed about the procedure, the printed consent form was signed by the patient and myself.? Emily was placed in the prone position on the fluoroscopy table and automated blood pressure cuff and pulse oximeter applied. The skin entry point for entering/approaching the epidural space for the lumbar epidural steroid injection was marked. Following thorough chlorhexadine preparation of the skin and draping and 1% lidocaine infiltration of the skin entry point and subcutaneous tissues, an 18 gauge 5 Touhy needle was placed and advanced under fluoroscopic guidance and with loss of resistance technique into the L5-S1 epidural space. Needle tip placement and depth were aided and confirmed by fluoroscopy. There was no paresthesia or return of blood or CSF through the needle. 1 mls of Omnipaque 240 was injected with clear epidural spread confirmed with fluoroscopy. 80 mg of Depo-Medrol was? injected. This was followed by 1 ml of preservative-free normal saline to flush the steroid out of the needle. There was no unusual discomfort expressed by Emily. The needle was withdrawn without difficulty. (49 mls of Omnipaque was wasted) Emily was observed and was without hemodynamic, neurologic, or allergic reactions.? Fluoroscopic images were digitally archived. Emily's vital signs were stable throughout the procedure and were as recorded in nursing records. Follow up plans and appointments were discussed with Emily. Post procedure instruction was given as documented in nursing records and having met discharge criteria Emily was discharged from the [facility]. COMMENTS: No apparent complications. Post-procedure pain: VAS= 0/10. Emily to contact [facility] as needed. If at least 50% improvement in pain and/or function for at least 3 months is achieved, this procedure can be repeated. I personally performed this entire procedure. DRAKE SIMON DO, MPH ABPMR-subspecialty board certification in Pain Medicine [facility] Coding Conscious Sedation used for procedure: No CPT Codes: Inj Spine L/S w/Imaging - 08630 ([id number] ~G) Additional Codes: Date of Service (06421) Date of service: 11/11/24 Diagnoses: lumbosacral radiculopathy
== END 2024-11-11 12:43 | disposition home or self-care (01) ==
LOC: PC 12:43
PROVIDERS: PCP Nurse Practitioner Family; Visit Provider Preventive Medicine Occupational Medicine
DX: M54.50 Low back pain, unspecified (principal); M54.16 Radiculopathy, lumbar region
CPT/HCPCS: 62323; 72100; J1010; Q9967

== ENCOUNTER → 2024-12-15 13:45 | Outpatient (BNVA) | payer MEDICARE, SELFPAY | PROVIDERS: PCP Nurse Practitioner Family; Visit Provider Nurse Practitioner Adult Health | DX: G43.009 Migraine without aura, not intractable, without status migrainosus (principal) | CPT/HCPCS: 99214 ==

== ENCOUNTER 2025-01-31 10:09 | Outpatient (CLI) | payer MEDICARE, SELFPAY ==
--- NOTE | 2025-01-31 06:00 | DI.RAD_ITS ---
Exam(s) XR PAIN CLINIC LUMBAR SP 2V EXAM: XR PAIN CLINIC LUMBAR SP 2V CLINICAL HISTORY: DX: Lumbar Spondylosis TECHNIQUE: 2D and realtime digital imaging was performed. CONTRAST MATERIAL: Refer to procedure report. COMPARISON: No exams were available for comparison FINDINGS: Fluoroscopy was provided for Dr. Bustillo during the performance of a lumbar medial branch block. Please refer to the procedure report for complete details. Ka,r=20.6 mGy IMPRESSION: RADIATION DOSE DELIVERED: 0.0 0.0 0
[2025-01-31 10:32] VITALS: BP 145/84; PULSE 81; RESP 18; TEMP 36.4; O2SAT 97
[2025-01-31 11:05] VITALS: PULSE 79; O2SAT 96
[2025-01-31 11:10] VITALS: PULSE 85; O2SAT 96
[2025-01-31 11:20] VITALS: PULSE 87; O2SAT 96
--- NOTE | 2025-01-31 11:22 | PDOC.PAIN ---
Date of service: 01/31/25 Time of Service: 11:28 Pain Managment Procedure Note Procedure Note Procedure Note: Lumbar Medial Branch Block ? Location: Bilateral Medial Branches ? Levels: L3,4,5? (L4-5, L5-S1 FACET) ? Pre-procedure Diagnosis: M47.817 Spondylosis without myelopathy or radiculopathy, lumbosacral region M47.816 Spondylosis without myelopathy or radiculopathy, lumbar region ? Post-procedure Diagnosis:? The same as above ? Sedation: NONE? Estimated blood loss:? less than 2 ml ? Surgeon:? Agustin Bustillo MD COMMENT: Patient had previously medial branch radiofrequency ablation in July 2022 with good relief for 18 months. She is here today for confirmatory medial branch block before repeating radiofrequency ablation ? Procedure Detail:? The procedure and potential risks were explained to the patient and informed written consent was obtained. The patient was escorted to the procedure room and placed in the prone position. Pillows were utilized for proper positioning and comfort.? Time out was performed in procedure room with nursing staff confirming the patient's identity, procedure to be performed, allergies, and any blood thinning or anti-platelet medications. The patient's lower back was prepped with chlorhexidine and draped in a sterile fashion. Sterile technique was maintained throughout the procedure.? Sterile gloves were used, a face mask was worn, and new single dose vials of all medications were used with the top being swabbed with alcohol and given time to dry prior to withdrawal of medication.? A left AND right-sided oblique fluoroscopic view was obtained, with visualization of the: ?RIGHT and LEFT L3,4 and DORSAL RAMUS L5 AT SACRAL ALA ? junction of the transverse process and superior articular process. Lidocaine 1% was used to anesthetize the skin. A 5 22-gauge Quincke needle was advanced along the superior margin of the transverse process and lateral to the articular process.? It was directed inferiorly and medially so that the tip struck the junction of the base of the transverse process and the superior articular process. The needle was then walked over the superior aspect of the transverse process and advanced slightly along the course of the Medial Branch medial branch nerves. Proper placement was verified in A/P, oblique and lateral views under fluoroscopy. At this location, following negative aspiration, 0.5ml 0.5% bupivacaine was injected.? The patient tolerated the procedure well and was transported to the recovery area for observation and discharge instructions. Permanent images saved and recorded. Follow-up:? ? Will plan to proceed with lumbar medial branch RFA if the patient gets good relief from today's procedure lasting for at least 2 hours. COMMENT:Pain went from 8/10 to 03/19. Before the patient left patient had greater than 90% pain relief. Coding Conscious Sedation used for procedure: No CPT Codes: LMBB (includes Fluoro) Lumbar/Sacral, single lvl *BILATERAL* - [id number] ([id number]~G5) 50 - BILATERAL PROCEDURE LMBB (includes Fluoro) Lumbar/Sacral, 2nd lvl - [id number] ([id number] ~G) LT - LEFT SIDE, RT - RIGHT SIDE Additional Codes: Date of Service () Diagnoses: M47.817 Spondylosis without myelopathy or radiculopathy, lumbosacral region M47.816 Spondylosis without myelopathy or radiculopathy, lumbar region
[2025-01-31] MEDS: Nerve Block Tray 1 EACH MC (11:25)
[2025-01-31] MEDS: Bupivacaine 0.5% Pres-Free 10 ML VIAL IJ (11:25)
== END 2025-01-31 10:10 | disposition home or self-care (01) ==
LOC: PC 10:09
PROVIDERS: PCP Nurse Practitioner Family; Visit Provider Anesthesiology Pain Medicine
DX: M54.50 Low back pain, unspecified (principal); M47.816 Spondylosis without myelopathy or radiculopathy, lumbar region; M47.817 Spondylosis without myelopathy or radiculopathy, lumbosacral region
CPT/HCPCS: 64493; 64494; 72100; J0665

== ENCOUNTER → 2025-02-23 00:17 | Outpatient (CLI) | payer MEDICARE, SELFPAY ==
--- NOTE | 2025-02-23 07:00 | DI.RAD_ITS ---
Exam(s) XR SHOULDER LT COMPLETE 2+V EXAM: XR SHOULDER LT COMPLETE 2+V CLINICAL HISTORY: worsening lt shoulder pain,m25.512. TECHNIQUE: 2D digital imaging was performed. Four views. COMPARISON: No exams were available for comparison FINDINGS: BONES: No acute fracture is present. No bony destructive lesion is seen. JOINTS: No dislocation present. There is inferior spurring at the acromioclavicular joint. There is also some spurring at the undersurface of the acromion. Glenohumeral joint space is maintained. SOFT TISSUE: Normal. IMPRESSION: Degenerative changes of the acromioclavicular joint. DATA REPOSITORY: RADIATION DOSE DELIVERED:
== END ==
LOC: DI 00:17
PROVIDERS: PCP Nurse Practitioner Family; Visit Provider Nurse Practitioner Family
DX: M25.512 Pain in left shoulder (principal); M19.012 Primary osteoarthritis, left shoulder
CPT/HCPCS: 73030

== ENCOUNTER 2025-02-28 01:42 | Outpatient (CLI) | payer MEDICARE, SELFPAY ==
[2025-02-28 14:23] LABS: TSH (W/Ref FT4) 3.17 uIU/mL (0.55-4.78)
== END 2025-02-28 01:43 | disposition home or self-care (01) ==
LOC: LBO 01:42
PROVIDERS: PCP Nurse Practitioner Family; Referring Provider Nurse Practitioner Family; Visit Provider Nurse Practitioner Family
DX: E03.9 Hypothyroidism, unspecified (principal)
CPT/HCPCS: 36415; 84443